=== PATIENT | female | born 1945 | race Caucasian/White ===

== ENCOUNTER 2016-04-23 13:53 | Inpatient (IN) | payer MEDICARE ==
[~2016-04-23] VITALS: Ht 165.1 cm; Wt 81.8 kg
[~2016-04-23 13:53] MED LIST: 'PARAFON FORTE500 M1 PO; AMOXICILLIN500 M2 PO; AMPICILLIN500 MG PO; ASPIRIN ADULT L81 M1 PO; ATORVASTATIN CA10 M1 PO; AUGMENTIN 875 M1 TAB PO; CLARITIN10 MG PO; CYCLOBENZAPRINE10 MG PO; DAYPRO600 M1 PO; FLEXERIL5 MG PO; HYDROCODONE BIT1 T11 PO; KEFLEX 500 MG E2 CAP PO; LISINOPRIL10 M1 PO; METFORMIN1000 MG PO; METFORMIN500 MG PO; NAPROSYN500 MG PO; OMEPRAZOLE40 MG PO; PERCOCET 325 MG1 TA2 PO; PLAVIX75 MG PO; ROBAXIN750 MG PO; SIMVASTATIN10 MG PO; TRAMADOL HCL50 MG PO; ZANTAC 7575 M1 PO; ZOCOR10 MG PO; ZYRTEC10 MG PO; Zofran4 MG PO
[2016-04-23 13:57] VITALS: BP 160/88
[2016-04-23] MEDS ORDERED: ASPIRIN ADULT L81 M1 PO (13:58)
[2016-04-23 14:30] LABS: HEMATOCRIT 46.1 % (37.0-47.0); HEMOGLOBIN 16.5 g/dl (12.0-16.0); MEAN CELL VOLUME 87.6 fl (81.0-99.0); MEAN CORPUSCULAR HGB 31.4 pg (27.0-31.0); MEAN CORPUSCULAR HGB CONC 35.8 g/dl (33.0-37.0); MEAN PLATELET VOLUME 10.3 fl (9.6-12.3); PLATELET COUNT AUTOMATED 175 10*3/uL (130-400); RED BLOOD COUNT 5.26 10*6/uL (4.10-5.10); WHITE BLOOD COUNT 17.4 10*3/uL (4.8-10.8)
[2016-04-23 14:49] LABS: ALBUMIN 3.9 gm/dl (3.1-4.5); BILIRUBIN, TOTAL 0.6 mg/dl (0.2-1.0); POTASSIUM 3.8 mmol/L (3.5-5.1)
[2016-04-23 14:55] LABS: ATYPICAL LYMPHS 2 % (0-0); MONOCYTE # 0.3 10*3/uL (0.1-1.0); NEUTROPHILS 92 % (47-73); PLATELET SUFFICIENCY NORMAL (NORMAL); TOTAL CELLS COUNTED 100 #CELLS
[2016-04-23 15:55] LABS: BILIRUBIN NEGATIVE (NEGATIVE); BLOOD 3+ (NEGATIVE); CLARITY CLOUDY (CLEAR); COLOR YELLOW (YELLOW); GLUCOSE 2+ (NEGATIVE); KETONE TRACE (NEGATIVE); LEUKO ESTERASE 2+ (NEGATIVE); NITRITE POSITIVE (NEGATIVE); PROTEIN 1+ (NEGATIVE); UROBILINOGEN 0.2 E.U./dl (0.2-1.0)
[2016-04-23 16:00] VITALS: BP 145/65
[2016-04-23 16:10] LABS: BACTERIA 1+; RBC 16-20 rbc/hpf (0-2); URINE REFLEX COMMENT YES (NO); WBC TNTC wbc/hpf (0-5)
[2016-04-23 19:20] VITALS: BP 159/51
[2016-04-23 20:30] VITALS: BP 145/65
[2016-04-24] VITALS: BP 145/61
[2016-04-24 00:52] LABS: TROPONIN I 0.046 ng/ml (<0.5)
[2016-04-24 06:37] LABS: BASO % 0.3 % (0.0-1.0); EOS % 0.3 % (1.0-4.0); IG # 0.1 10*3/uL (0.0-0.1); LYMPH # 1.5 10*3/uL (1.3-4.4); LYMPH % 11.7 % (27.0-41.0); MEAN CELL VOLUME 90.3 fl (81.0-99.0); MEAN CORPUSCULAR HGB 30.9 pg (27.0-31.0); MEAN CORPUSCULAR HGB CONC 34.3 g/dl (33.0-37.0); MEAN PLATELET VOLUME 10.8 fl (9.6-12.3); MONO # 1.1 10*3/uL (0.1-1.0); MONO % 8.7 % (3.0-9.0); NEUT # 9.8 10*3/uL (2.3-7.9); NEUT % 78.4 % (47.0-73.0); PLATELET COUNT AUTOMATED 126 10*3/uL (130-400); RED BLOOD COUNT 4.43 10*6/uL (4.10-5.10); RED CELL DISTRI WIDTH 12.2 % (0-14.5); WHITE BLOOD COUNT 12.5 10*3/uL (4.8-10.8)
[2016-04-24 06:38] LABS: HEMOGLOBIN 13.7 g/dl (12.0-16.0)
[2016-04-24 06:51] LABS: CKMB 0.8 ng/ml (0.5-3.6); TROPONIN I 0.042 ng/ml (<0.5)
[2016-04-24 06:53] LABS: ALKALINE PHOSPHATASE 78 U/L (45-117); BILIRUBIN, TOTAL 0.6 mg/dl (0.2-1.0); BUN 12 mg/dl (7-24); CARBON DIOXIDE 26 mmol/L (21-32); CHLORIDE 108 mmol/L (98-107); CHOLESTEROL 146 mg/dL (<200); EST GLOM FILT AFRICAN AMERICAN > 60 ml/min; FREE T4 1.55 ng/dl (0.76-1.46); GLUCOSE 156 mg/dL (65-99); HDL CHOLESTEROL 49 mg/dl (40-60); LDL CHOLESTEROL 76 mg/dL (9-159); MAGNESIUM 2.2 mg/dL (1.5-2.1); PHOSPHOROUS 2.3 mg/dL (2.5-4.9); POTASSIUM 3.7 mmol/L (3.5-5.1); SGOT/AST 10 IU/L (3-35); SGPT/ALT 16 U/L (12-78); SODIUM 144 mmol/L (136-145); THYROID STIM HORMONE (HS) 0.962 uIU/ml (0.358-4.75); TOTAL PROTEIN 6.7 gm/dL (6.4-8.2); TRIGLYCERIDES 107 mg/dl (<150); VLDL CHOLESTEROL 21 mg/dL (6-40)
[2016-04-24 06:59] LABS: HEMOGLOBIN A1c 7.3 % (4.8-5.6)
[2016-04-24 07:16] LABS: PROTHROMBIN TIME 10.4 SECONDS (9.0-12.4)
[2016-04-24 07:45] LABS: FOLIC ACID 6.99 ng/mL (>5.38); VITAMIN D, 25-HYDROXY 13.6 ng/mL (30-100)
[2016-04-24 08:00] VITALS: BP 145/60
[2016-04-24 11:47] VITALS: BP 155/63
[2016-04-24 12:11] LABS: CKMB 1.2 ng/ml (0.5-3.6); TROPONIN I 0.034 ng/ml (<0.5)
[2016-04-24 16:00] VITALS: BP 155/70
[2016-04-24] MEDS ORDERED: PRAVACHOL20 MG PO (17:35)
[2016-04-24] MEDS ORDERED: LISINOPRIL40 MG PO (17:35)
[2016-04-24 20:00] VITALS: BP 155/57
[2016-04-25] VITALS: BP 154/68
[2016-04-25 07:27] LABS: BASO % 0.4 % (0.0-1.0); EOS # 0.1 10*3/uL (0.0-0.4); EOS % 0.8 % (1.0-4.0); HEMATOCRIT 38.6 % (37.0-47.0); HEMOGLOBIN 13.5 g/dl (12.0-16.0); LYMPH # 1.1 10*3/uL (1.3-4.4); LYMPH % 13.2 % (27.0-41.0); MEAN CELL VOLUME 87.9 fl (81.0-99.0); MEAN CORPUSCULAR HGB 30.8 pg (27.0-31.0); MEAN PLATELET VOLUME 10.2 fl (9.6-12.3); MONO # 0.7 10*3/uL (0.1-1.0); MONO % 7.9 % (3.0-9.0); NEUT # 6.4 10*3/uL (2.3-7.9); NEUT % 77.3 % (47.0-73.0); PLATELET COUNT AUTOMATED 127 10*3/uL (130-400); RED BLOOD COUNT 4.39 10*6/uL (4.10-5.10); RED CELL DISTRI WIDTH 11.9 % (0-14.5); WHITE BLOOD COUNT 8.3 10*3/uL (4.8-10.8)
[2016-04-25 07:42] LABS: ALBUMIN 3.1 gm/dl (3.1-4.5); ALKALINE PHOSPHATASE 80 U/L (45-117); BILIRUBIN, TOTAL 0.5 mg/dl (0.2-1.0); BUN 13 mg/dl (7-24); CARBON DIOXIDE 28 mmol/L (21-32); CHLORIDE 107 mmol/L (98-107); EST GLOM FILT AFRICAN AMERICAN > 60 ml/min; GLUCOSE 140 mg/dL (65-99); POTASSIUM 3.5 mmol/L (3.5-5.1); SGOT/AST 16 IU/L (3-35); SGPT/ALT 24 U/L (12-78); SODIUM 142 mmol/L (136-145); TOTAL PROTEIN 6.9 gm/dL (6.4-8.2)
[2016-04-25 08:00] VITALS: BP 144/68
[2016-04-25 12:00] VITALS: BP 170/82
[2016-04-25 16:00] VITALS: BP 176/59
[2016-04-25 20:00] VITALS: BP 187/81
[2016-04-26] VITALS: BP 177/73
[2016-04-26 07:09] LABS: BASO % 0.6 % (0.0-1.0); EOS # 0.1 10*3/uL (0.0-0.4); HEMATOCRIT 35.6 % (37.0-47.0); HEMOGLOBIN 12.5 g/dl (12.0-16.0); LYMPH # 1.5 10*3/uL (1.3-4.4); LYMPH % 21.8 % (27.0-41.0); MEAN CELL VOLUME 86.6 fl (81.0-99.0); MEAN CORPUSCULAR HGB 30.4 pg (27.0-31.0); MEAN CORPUSCULAR HGB CONC 35.1 g/dl (33.0-37.0); MEAN PLATELET VOLUME 10.5 fl (9.6-12.3); MONO # 0.7 10*3/uL (0.1-1.0); MONO % 10.7 % (3.0-9.0); NEUT # 4.3 10*3/uL (2.3-7.9); NEUT % 64.6 % (47.0-73.0); PLATELET COUNT AUTOMATED 119 10*3/uL (130-400); RED BLOOD COUNT 4.11 10*6/uL (4.10-5.10); RED CELL DISTRI WIDTH 11.7 % (0-14.5); WHITE BLOOD COUNT 6.7 10*3/uL (4.8-10.8)
[2016-04-26 08:00] VITALS: BP 150/70
[2016-04-26] MEDS ORDERED: CIPRO500 MG PO (09:21)
[2016-04-26] MEDS ORDERED: D-1000 185 MG-11 TAB PO (09:21)
[2016-05-19] MEDS ORDERED: ACETAMINOPHEN-H1 TA2 PO (18:35)
[2016-05-19] MEDS ORDERED: FLONASE ALLERG9.9 ML NAS (19:28)
[2016-05-19] MEDS ORDERED: PREDNISONE10 MG PO (19:28)
[2016-05-19] MEDS ORDERED: ROBITUSSIN DM 105 ML PO (19:28)
[2016-05-19] MEDS ORDERED: TESSALON PERLE100 M1 PO (19:38)
== END 2016-04-26 10:52 | disposition home or self-care (01) | DRG 871 ==
LOC: ED 13:53 → 5E 18:21 → EDHOLD 18:21 → 5E 18:42
PROVIDERS: Family Medicine Adult Medicine; Internal Medicine; Nurse Practitioner Family
DX: A41.9 Sepsis, unspecified organism (principal); N17.0 Acute kidney failure with tubular necrosis; E44.0 Moderate protein-calorie malnutrition; E83.41 Hypermagnesemia; D69.6 Thrombocytopenia, unspecified; E83.39 Other disorders of phosphorus metabolism; N12 Tubulo-interstitial nephritis, not specified as acute or chronic; E78.5 Hyperlipidemia, unspecified; E11.9 Type 2 diabetes mellitus without complications; K21.9 Gastro-esophageal reflux disease without esophagitis; I10 Essential (primary) hypertension; I99.9 Unspecified disorder of circulatory system; L30.9 Dermatitis, unspecified; E66.3 Overweight; B96.20 Unspecified Escherichia coli [E. coli] as the cause of diseases classified elsewhere; Z90.710 Acquired absence of both cervix and uterus; Z98.890 Other specified postprocedural states; Z82.49 Family history of ischemic heart disease and other diseases of the circulatory system; Z88.6 Allergy status to analgesic agent; Z91.041 Radiographic dye allergy status; Z79.82 Long term (current) use of aspirin; Z79.84 Long term (current) use of oral hypoglycemic drugs; Z79.899 Other long term (current) drug therapy; Z68.30 Body mass index [BMI] 30.0-30.9, adult

== ENCOUNTER 2016-09-23 20:18 | Emergency (ER) | payer MEDICARE ==
[2016-09-23 20:18] VITALS: BP 179/90
[~2016-09-23 20:18] MED LIST changes: +ACETAMINOPHEN-H1 TA2 PO; +CIPRO500 MG PO; +D-1000 185 MG-11 TAB PO; +FLONASE ALLERG9.9 ML NAS; +LISINOPRIL40 MG PO; +PRAVACHOL20 MG PO; +PREDNISONE10 MG PO; +ROBITUSSIN DM 105 ML PO; +TESSALON PERLE100 M1 PO
[2016-09-23 21:29] LABS: BASO % 0.1 % (0.0-1.0); EOS # 0.2 10*3/uL (0.0-0.4); EOS % 2.3 % (1.0-4.0); HEMATOCRIT 42.3 % (37.0-47.0); HEMOGLOBIN 14.6 g/dl (12.0-16.0); LYMPH # 0.5 10*3/uL (1.3-4.4); LYMPH % 4.4 % (27.0-41.0); MEAN CELL VOLUME 88.5 fl (81.0-99.0); MEAN CORPUSCULAR HGB 30.5 pg (27.0-31.0); MEAN CORPUSCULAR HGB CONC 34.5 g/dl (33.0-37.0); MEAN PLATELET VOLUME 10.1 fl (9.6-12.3); MONO # 0.4 10*3/uL (0.1-1.0); MONO % 3.6 % (3.0-9.0); NEUT # 9.2 10*3/uL (2.3-7.9); NEUT % 89.3 % (47.0-73.0); PLATELET COUNT AUTOMATED 131 10*3/uL (130-400); RED BLOOD COUNT 4.78 10*6/uL (4.10-5.10); RED CELL DISTRI WIDTH 12.6 % (0-14.5); WHITE BLOOD COUNT 10.3 10*3/uL (4.8-10.8)
[2016-09-23 21:47] LABS: BUN 16 mg/dl (7-24); C-REACTIVE PROTEIN 2.84 MG/DL (0-0.3); CARBON DIOXIDE 24 mmol/L (21-32); CHLORIDE 106 mmol/L (98-107); EST GLOM FILT AFRICAN AMERICAN > 60 ml/min; GLUCOSE 163 mg/dL (65-99); MAGNESIUM 1.8 mg/dL (1.5-2.1); POTASSIUM 3.7 mmol/L (3.5-5.1); SODIUM 141 mmol/L (136-145); TROPONIN I 0.042 ng/ml (<0.045)
[2016-09-23 22:29] LABS: BILIRUBIN NEGATIVE (NEGATIVE); BLOOD TRACE-INTACT (NEGATIVE); CLARITY CLEAR (CLEAR); COLOR YELLOW (YELLOW); GLUCOSE NEGATIVE (NEGATIVE); KETONE NEGATIVE (NEGATIVE); LEUKO ESTERASE NEGATIVE (NEGATIVE); NITRITE NEGATIVE (NEGATIVE); PROTEIN NEGATIVE (NEGATIVE); SPECIFIC GRAVITY 1.025 (1.005-1.030); UROBILINOGEN 0.2 E.U./dl (0.2-1.0)
[2016-09-23 22:44] LABS: BACTERIA 2+; URINE REFLEX COMMENT YES (NO)
[2016-09-23] MEDS ORDERED: Zofran4 MG PO (22:50)
== END 2016-09-23 23:18 | disposition home or self-care (01) ==
LOC: ED 20:18
PROVIDERS: Student in an Organized Health Care Education/Training Program
DX: R11.2 Nausea with vomiting, unspecified (principal); R19.7 Diarrhea, unspecified; I10 Essential (primary) hypertension; K21.9 Gastro-esophageal reflux disease without esophagitis; Z90.49 Acquired absence of other specified parts of digestive tract; Z88.6 Allergy status to analgesic agent; Z91.041 Radiographic dye allergy status; Z79.899 Other long term (current) drug therapy; Z79.82 Long term (current) use of aspirin

== ENCOUNTER 2016-11-09 18:03 | Inpatient (IN) | payer MEDICARE ==
[~2016-11-09] VITALS: Ht 166.4 cm; Wt 83.6 kg
--- NOTE | ~2016-11-09 | CON ---
[place], [place] REPORT OF CONSULTATION NAME: BRANDEN LEON UNIT #: [id number] ROOM: 507 DOCTOR: MARY LOPEZ [facility] BIRTHDATE: [birth year] DOS: 11/10/2016 HISTORY OF PRESENT ILLNESS: The patient came in with history of right ear pain and headache and CT scan was unremarkable. Chest x-ray also is unremarkable. The patient has a history of paroxysmal atrial fibrillation, now in sinus rhythm, was in bradycardia, now the heart rate is stabilized around 70 and with optimal adjustment of the medications, and history of hyponatremia, hypoglycemia and hyperglycemia. No evidence of any acute cardiac decompensation at this time. Responding well to the current readjustment of the medications. PHYSICAL EXAMINATION: VITAL SIGNS: Blood pressure 150/72, heart rate is 80, respiratory rate is 20, and afebrile. GENERAL: Alert and responding well. SKIN: Warm. NECK: Supple. LUNGS: No rales. HEART: S1 and S2, regular. No gallops. ABDOMEN: Soft. Color is good. No cyanosis. RECTAL AND GENITAL: Unrelated. NEUROLOGICAL: No focal neurological deficits noted. LABORATORY DATA: Albumin is normal. Enzymes are unremarkable. Liver functions were good. GFR is normal. Hemoglobin is 15.1, WBC count 9.7, ____ 61.2. Electrolytes are normal. ASSESSMENT AND PLAN: History of cardiac dysrhythmia, now in sinus with periods of occasional ____. Rhythm appears to be stable. Hemodynamically stable. We will continue the therapy. We will follow the patient closely. VALENCIA HERNANDEZ MD CM:CONSTR:REPORT OF CONSULTATION 1712 11/12/16 0547 stephanie FLYNN DO
--- NOTE | ~2016-11-09 | EKG ---
[place], [place] ELECTROCARDIOGRAM REPORT NAME: BRANDEN LEON UNIT #: [id number] ROOM: 507 DOCTOR: SHAGUFTA SMITH MD BIRTHDATE: [birth year] DOS: 11/09/2016 TIME: 1902 hours. Sinus tachycardia 110 beats per minute with unifocal PVCs. Consider an old inferior wall myocardial infarction. No previous tracing is available for comparison. SHAGUFTA SMITH MD CM:EKGRPT:ELECTROCARDIOGRAM REPORT 33 12 SHAGUFTA SMITH MD
[2016-11-09 18:53] VITALS: BP 190/105
[2016-11-09 19:20] VITALS: BP 134/80
[2016-11-09 19:24] LABS: BASO % 0.2 % (0.0-1.0); EOS % 0.2 % (1.0-4.0); HEMATOCRIT 43.7 % (37.0-47.0); HEMOGLOBIN 15.1 g/dl (12.0-16.0); LYMPH # 1.1 10*3/uL (1.3-4.4); LYMPH % 11.1 % (27.0-41.0); MEAN CELL VOLUME 86.9 fl (81.0-99.0); MEAN CORPUSCULAR HGB CONC 34.6 g/dl (33.0-37.0); MEAN PLATELET VOLUME 10.4 fl (9.6-12.3); MONO # 0.7 10*3/uL (0.1-1.0); MONO % 6.8 % (3.0-9.0); NEUT # 7.9 10*3/uL (2.3-7.9); NEUT % 81.4 % (47.0-73.0); PLATELET COUNT AUTOMATED 137 10*3/uL (130-400); RED BLOOD COUNT 5.03 10*6/uL (4.10-5.10); RED CELL DISTRI WIDTH 12.6 % (0-14.5); WHITE BLOOD COUNT 9.7 10*3/uL (4.8-10.8)
[2016-11-09 19:34] LABS: PROTHROMBIN TIME 10.6 SECONDS (9.0-12.4)
[2016-11-09 19:40] LABS: ALBUMIN 3.9 gm/dl (3.1-4.5); ALKALINE PHOSPHATASE 106 U/L (45-117); BILIRUBIN, TOTAL 0.6 mg/dl (0.2-1.0); BUN 15 mg/dl (7-24); C-REACTIVE PROTEIN 2.16 MG/DL (0-0.3); CARBON DIOXIDE 23 mmol/L (21-32); CHLORIDE 103 mmol/L (98-107); CKMB 1.2 ng/ml (0.5-3.6); CPK 113 U/L (26-192); EST GLOM FILT AFRICAN AMERICAN > 60 ml/min; GLUCOSE 144 mg/dL (65-99); SGOT/AST 16 IU/L (3-35); SGPT/ALT 22 U/L (12-78); SODIUM 135 mmol/L (136-145); TOTAL PROTEIN 7.9 gm/dL (6.4-8.2); TROPONIN I 0.035 ng/ml (<0.045)
[2016-11-09 20:38] VITALS: BP 134/69
[2016-11-09 22:14] VITALS: BP 148/95
[2016-11-09 22:48] VITALS: BP 177/79
[2016-11-09 22:59] VITALS: BP 177/79
[2016-11-10] VITALS: BP 175/73
[2016-11-10 04:00] VITALS: BP 141/60
[2016-11-10 07:10] LABS: BASO % 0.4 % (0.0-1.0); EOS % 0.3 % (1.0-4.0); HEMATOCRIT 40.3 % (37.0-47.0); HEMOGLOBIN 13.9 g/dl (12.0-16.0); LYMPH # 0.9 10*3/uL (1.3-4.4); LYMPH % 11.6 % (27.0-41.0); MEAN CELL VOLUME 87.6 fl (81.0-99.0); MEAN CORPUSCULAR HGB 30.2 pg (27.0-31.0); MEAN CORPUSCULAR HGB CONC 34.5 g/dl (33.0-37.0); MEAN PLATELET VOLUME 10.7 fl (9.6-12.3); MONO # 0.6 10*3/uL (0.1-1.0); MONO % 8.2 % (3.0-9.0); NEUT # 6.1 10*3/uL (2.3-7.9); NEUT % 79.2 % (47.0-73.0); PLATELET COUNT AUTOMATED 115 10*3/uL (130-400); RED CELL DISTRI WIDTH 12.7 % (0-14.5); WHITE BLOOD COUNT 7.7 10*3/uL (4.8-10.8)
[2016-11-10 07:35] LABS: HEMOGLOBIN A1c 7.2 % (4.8-5.6)
[2016-11-10 07:47] LABS: MAGNESIUM 1.9 mg/dL (1.5-2.1); PHOSPHOROUS 3.2 mg/dL (2.5-4.9); POTASSIUM 3.5 mmol/L (3.5-5.1)
[2016-11-10 07:50] LABS: PROTHROMBIN TIME 10.7 SECONDS (9.0-12.4)
[2016-11-10 07:57] LABS: FREE T4 1.38 ng/dl (0.76-1.46); THYROID STIM HORMONE (HS) 1.42 uIU/ml (0.358-4.75)
[2016-11-10 08:00] VITALS: BP 127/46
[2016-11-10 08:14] LABS: VITAMIN D, 25-HYDROXY 15.9 ng/mL (30-100)
[2016-11-10 08:15] LABS: FOLIC ACID 11.46 ng/mL (>5.38)
[2016-11-10 12:00] VITALS: BP 159/60
[2016-11-10 16:00] VITALS: BP 153/62
[2016-11-10 20:00] VITALS: BP 156/59
[2016-11-11] VITALS: BP 130/55
[2016-11-11 08:00] VITALS: BP 157/60
[2016-11-11 12:00] VITALS: BP 92/48
[2016-11-11 14:30] VITALS: BP 106/62
[2016-11-11 16:49] VITALS: BP 117/57
[2016-11-11 20:00] VITALS: BP 157/59
[2016-11-12] VITALS: BP 158/62
[2016-11-12 08:00] VITALS: BP 112/82
[2016-11-12 12:00] VITALS: BP 122/63
[2016-11-12 16:00] VITALS: BP 155/65
[2016-11-12 20:00] VITALS: BP 159/73
[2016-11-13] VITALS: BP 148/50
[2016-11-13 08:00] VITALS: BP 150/60
[2016-11-13 12:00] VITALS: BP 174/70
[2016-11-13] MEDS ORDERED: CARVEDILOL6.25 MG PO (12:49)
== END 2016-11-13 16:23 | disposition home or self-care (01) | DRG 155 ==
LOC: ED 18:03 → 5E 22:12 → EDHOLD 22:12 → 5E 22:24
PROVIDERS: Nurse Practitioner Family; Student in an Organized Health Care Education/Training Program
DX: H92.01 Otalgia, right ear (principal); E87.1 Hypo-osmolality and hyponatremia; E11.65 Type 2 diabetes mellitus with hyperglycemia; I49.3 Ventricular premature depolarization; I08.1 Rheumatic disorders of both mitral and tricuspid valves; R51 Headache; E78.5 Hyperlipidemia, unspecified; K21.9 Gastro-esophageal reflux disease without esophagitis; Z87.891 Personal history of nicotine dependence; Z90.49 Acquired absence of other specified parts of digestive tract; Z90.710 Acquired absence of both cervix and uterus; Z98.1 Arthrodesis status; Z79.82 Long term (current) use of aspirin; Z79.84 Long term (current) use of oral hypoglycemic drugs; Z79.899 Other long term (current) drug therapy; Z88.8 Allergy status to other drugs, medicaments and biological substances; Z91.041 Radiographic dye allergy status; Z82.49 Family history of ischemic heart disease and other diseases of the circulatory system; G89.29 Other chronic pain; M54.9 Dorsalgia, unspecified

== ENCOUNTER 2016-11-16 18:24 | Inpatient (IN) | payer MEDICARE ==
[~2016-11-16] VITALS: Ht 165.1 cm; Wt 80.8 kg
--- NOTE | ~2016-11-16 | EKG ---
[place], [place] ELECTROCARDIOGRAM REPORT NAME: BRANDEN LEON UNIT #: [id number] ROOM: 426 DOCTOR: MARY LOPEZ [facility],[place] BIRTHDATE: [birth year] DOS: 11/16/2016 TIME: 1849 CONCLUSION: 1. Sinus rhythm. 2. Minor left axis nonspecific ST changes. VALENCIA HERNANDEZ MD CM:EKGRPT:ELECTROCARDIOGRAM REPORT 1622 1832 VALENCIA HERNANDEZ MD [facility]
[~2016-11-16 18:24] MED LIST changes: +CARVEDILOL6.25 MG PO
[2016-11-16 18:29] VITALS: BP 204/82
[2016-11-16 18:40] VITALS: BP 196/100
[2016-11-16 18:54] LABS: BASO % 0.2 % (0.0-1.0); EOS % 0.1 % (1.0-4.0); HEMATOCRIT 39.7 % (37.0-47.0); IG # 0.1 10*3/uL (0.0-0.1); LYMPH # 0.7 10*3/uL (1.3-4.4); LYMPH % 5.1 % (27.0-41.0); MEAN CELL VOLUME 85.9 fl (81.0-99.0); MEAN CORPUSCULAR HGB 30.3 pg (27.0-31.0); MEAN CORPUSCULAR HGB CONC 35.3 g/dl (33.0-37.0); MEAN PLATELET VOLUME 9.9 fl (9.6-12.3); MONO # 0.6 10*3/uL (0.1-1.0); MONO % 4.5 % (3.0-9.0); NEUT # 12.4 10*3/uL (2.3-7.9); NEUT % 89.6 % (47.0-73.0); PLATELET COUNT AUTOMATED 126 10*3/uL (130-400); RED BLOOD COUNT 4.62 10*6/uL (4.10-5.10); RED CELL DISTRI WIDTH 12.2 % (0-14.5); WHITE BLOOD COUNT 13.8 10*3/uL (4.8-10.8)
[2016-11-16 19:11] LABS: ALBUMIN 3.5 gm/dl (3.1-4.5); ALKALINE PHOSPHATASE 84 U/L (45-117); BILIRUBIN, TOTAL 0.8 mg/dl (0.2-1.0); BUN 9 mg/dl (7-24); CARBON DIOXIDE 25 mmol/L (21-32); CHLORIDE 101 mmol/L (98-107); EST GLOM FILT AFRICAN AMERICAN > 60 ml/min; GLUCOSE 168 mg/dL (65-99); MAGNESIUM 1.8 mg/dL (1.5-2.1); POTASSIUM 3.3 mmol/L (3.5-5.1); SGOT/AST 24 IU/L (3-35); SGPT/ALT 47 U/L (12-78); SODIUM 136 mmol/L (136-145); TOTAL PROTEIN 7.6 gm/dL (6.4-8.2)
[2016-11-16 19:12] LABS: TROPONIN I 0.023 ng/ml (<0.045)
[2016-11-16 19:24] LABS: PROTHROMBIN TIME 10.8 SECONDS (8.9-12.2)
[2016-11-16 19:51] VITALS: BP 138/74
[2016-11-16 19:55] LABS: BILIRUBIN NEGATIVE (NEGATIVE); BLOOD 1+ (NEGATIVE); CLARITY SL CLOUDY (CLEAR); COLOR YELLOW (YELLOW); GLUCOSE NEGATIVE (NEGATIVE); KETONE 1+ (NEGATIVE); LEUKO ESTERASE NEGATIVE (NEGATIVE); NITRITE NEGATIVE (NEGATIVE); PROTEIN 1+ (NEGATIVE); SPECIFIC GRAVITY 1.015 (1.005-1.030)
[2016-11-16 20:08] LABS: BACTERIA 2+; URINE REFLEX COMMENT YES (NO)
[2016-11-16 21:16] VITALS: BP 135/41
[2016-11-16 22:20] VITALS: BP 166/66
[2016-11-17] VITALS: BP 136/51
[2016-11-17 04:09] LABS: BASO % 0.3 % (0.0-1.0); IG # 0.1 10*3/uL (0.0-0.1); LYMPH # 0.8 10*3/uL (1.3-4.4); LYMPH % 6.7 % (27.0-41.0); MEAN CELL VOLUME 87.2 fl (81.0-99.0); MEAN CORPUSCULAR HGB 30.1 pg (27.0-31.0); MEAN CORPUSCULAR HGB CONC 34.5 g/dl (33.0-37.0); MEAN PLATELET VOLUME 9.5 fl (9.6-12.3); MONO # 0.7 10*3/uL (0.1-1.0); MONO % 5.8 % (3.0-9.0); NEUT # 10.2 10*3/uL (2.3-7.9); NEUT % 86.6 % (47.0-73.0); PLATELET COUNT AUTOMATED 102 10*3/uL (130-400); RED BLOOD COUNT 3.76 10*6/uL (4.10-5.10); RED CELL DISTRI WIDTH 12.4 % (0-14.5); WHITE BLOOD COUNT 11.8 10*3/uL (4.8-10.8)
[2016-11-17 04:10] LABS: HEMATOCRIT 32.8 % (37.0-47.0); HEMOGLOBIN 11.3 g/dl (12.0-16.0)
[2016-11-17 04:19] LABS: INTERNATIONAL NORM RATIO 1.1 (2.0-3.5); PROTHROMBIN TIME 11.8 SECONDS (9.0-12.4)
[2016-11-17 04:19] LABS: BUN 10 mg/dl (7-24); CARBON DIOXIDE 25 mmol/L (21-32); CHLORIDE 105 mmol/L (98-107); EST GLOM FILT AFRICAN AMERICAN > 60 ml/min; GLUCOSE 156 mg/dL (65-99); MAGNESIUM 1.6 mg/dL (1.5-2.1); POTASSIUM 2.9 mmol/L (3.5-5.1); SODIUM 139 mmol/L (136-145)
[2016-11-17 04:20] LABS: PHOSPHOROUS 2.8 mg/dL (2.5-4.9)
[2016-11-17 08:00] VITALS: BP 128/68
[2016-11-17 12:00] VITALS: BP 105/45
[2016-11-17 16:00] VITALS: BP 121/53
[2016-11-17 20:00] VITALS: BP 100/53
[2016-11-18] VITALS: BP 140/63
[2016-11-18 08:00] VITALS: BP 140/90
[2016-11-18 10:29] LABS: POTASSIUM 3.8 mmol/L (3.5-5.1)
[2016-11-18 10:48] LABS: MEAN CELL VOLUME 86.5 fl (81.0-99.0); MEAN CORPUSCULAR HGB 30.7 pg (27.0-31.0); MEAN CORPUSCULAR HGB CONC 35.5 g/dl (33.0-37.0); RED BLOOD COUNT 4.88 10*6/uL (4.10-5.10); WHITE BLOOD COUNT 14.7 10*3/uL (4.8-10.8)
[2016-11-18 10:49] LABS: HEMATOCRIT 42.2 % (37.0-47.0); PLATELET COUNT AUTOMATED 156 10*3/uL (130-400)
[2016-11-18 10:51] LABS: LYMPHOCYTE # 0.6 10*3/uL (1.3-4.4); MONOCYTE # 0.7 10*3/uL (0.1-1.0); NEUTROPHIL # 13.4 10*3/uL (2.3-7.9); NEUTROPHILS 91 % (47-73); PLATELET SUFFICIENCY NORMAL (NORMAL); TOTAL CELLS COUNTED 100 #CELLS
[2016-11-18 12:00] VITALS: BP 153/66
[2016-11-18 16:00] VITALS: BP 153/65
[2016-11-18 20:00] VITALS: BP 159/66
[2016-11-19] VITALS: BP 162/85
[2016-11-19 05:57] LABS: ALBUMIN 2.5 gm/dl (3.1-4.5); BILIRUBIN, TOTAL 0.5 mg/dl (0.2-1.0); POTASSIUM 2.9 mmol/L (3.5-5.1)
[2016-11-19 05:58] LABS: TOTAL PROTEIN 5.8 gm/dL (6.4-8.2)
[2016-11-19 06:19] LABS: BASO % 0.2 % (0.0-1.0); EOS % 0.2 % (1.0-4.0); IG # 0.1 10*3/uL (0.0-0.1); LYMPH # 1.2 10*3/uL (1.3-4.4); LYMPH % 9.8 % (27.0-41.0); MEAN CELL VOLUME 86.7 fl (81.0-99.0); MEAN CORPUSCULAR HGB 29.9 pg (27.0-31.0); MEAN CORPUSCULAR HGB CONC 34.5 g/dl (33.0-37.0); MEAN PLATELET VOLUME 10.8 fl (9.6-12.3); MONO # 0.7 10*3/uL (0.1-1.0); MONO % 5.6 % (3.0-9.0); NEUT # 10.1 10*3/uL (2.3-7.9); NEUT % 83.5 % (47.0-73.0); PLATELET COUNT AUTOMATED 120 10*3/uL (130-400); RED BLOOD COUNT 3.98 10*6/uL (4.10-5.10); RED CELL DISTRI WIDTH 13.1 % (0-14.5); WHITE BLOOD COUNT 12.1 10*3/uL (4.8-10.8)
[2016-11-19 06:37] LABS: HEMATOCRIT 34.5 % (37.0-47.0); HEMOGLOBIN 11.9 g/dl (12.0-16.0)
[2016-11-19 07:29] LABS: MAGNESIUM 2.1 mg/dL (1.5-2.1); PHOSPHOROUS 1.9 mg/dL (2.5-4.9)
[2016-11-19 08:00] VITALS: BP 162/92
[2016-11-19 12:00] VITALS: BP 170/79
[2016-11-19 16:00] VITALS: BP 143/54
[2016-11-19 20:00] VITALS: BP 158/78
[2016-11-20] VITALS: BP 163/72
[2016-11-20 05:44] LABS: CHLORIDE 109 mmol/L (98-107); GLUCOSE 107 mg/dL (65-99); POTASSIUM 2.8 mmol/L (3.5-5.1); SODIUM 143 mmol/L (136-145)
[2016-11-20 05:48] LABS: BUN 9 mg/dl (7-24); CARBON DIOXIDE 27 mmol/L (21-32); EST GLOM FILT AFRICAN AMERICAN > 60 ml/min; MAGNESIUM 1.9 mg/dL (1.5-2.1); PHOSPHOROUS 2.2 mg/dL (2.5-4.9)
[2016-11-20 05:58] LABS: BASO % 0.4 % (0.0-1.0); EOS # 0.1 10*3/uL (0.0-0.4); HEMATOCRIT 31.8 % (37.0-47.0); IG # 0.1 10*3/uL (0.0-0.1); LYMPH # 1.5 10*3/uL (1.3-4.4); MEAN CELL VOLUME 87.1 fl (81.0-99.0); MEAN CORPUSCULAR HGB 30.1 pg (27.0-31.0); MEAN CORPUSCULAR HGB CONC 34.6 g/dl (33.0-37.0); MEAN PLATELET VOLUME 10.8 fl (9.6-12.3); MONO # 0.6 10*3/uL (0.1-1.0); MONO % 6.9 % (3.0-9.0); NEUT # 6.1 10*3/uL (2.3-7.9); NEUT % 73.1 % (47.0-73.0); PLATELET COUNT AUTOMATED 121 10*3/uL (130-400); RED BLOOD COUNT 3.65 10*6/uL (4.10-5.10); RED CELL DISTRI WIDTH 13.2 % (0-14.5); WHITE BLOOD COUNT 8.3 10*3/uL (4.8-10.8)
[2016-11-20 08:00] VITALS: BP 180/66
[2016-11-20] MEDS ORDERED: IMODIUM A-D2 M2 PO (10:56)
[2016-11-20] MEDS ORDERED: K-TAB10 MEQ PO (10:58)
[2016-11-20 12:00] VITALS: BP 146/70
== END 2016-11-20 15:34 | disposition home or self-care (01) | DRG 871 ==
LOC: ED 18:24 → 4E 20:20 → EDHOLD 20:20 → 4E 20:20
PROVIDERS: Family Medicine; Internal Medicine; Internal Medicine Gastroenterology; Internal Medicine Hospice and Palliative Medicine; Nurse Practitioner Family
DX: A41.9 Sepsis, unspecified organism (principal); N17.0 Acute kidney failure with tubular necrosis; E43 Unspecified severe protein-calorie malnutrition; K52.9 Noninfective gastroenteritis and colitis, unspecified; E78.5 Hyperlipidemia, unspecified; I16.0 Hypertensive urgency; E87.6 Hypokalemia; E11.65 Type 2 diabetes mellitus with hyperglycemia; E83.39 Other disorders of phosphorus metabolism; K21.9 Gastro-esophageal reflux disease without esophagitis; Z87.891 Personal history of nicotine dependence; Z68.29 Body mass index [BMI] 29.0-29.9, adult; Z90.49 Acquired absence of other specified parts of digestive tract; Z90.710 Acquired absence of both cervix and uterus; Z98.1 Arthrodesis status; Z88.5 Allergy status to narcotic agent; Z88.8 Allergy status to other drugs, medicaments and biological substances; Z79.82 Long term (current) use of aspirin; Z79.84 Long term (current) use of oral hypoglycemic drugs; Z79.899 Other long term (current) drug therapy; Z91.041 Radiographic dye allergy status; Z82.49 Family history of ischemic heart disease and other diseases of the circulatory system; Z80.8 Family history of malignant neoplasm of other organs or systems; Z82.3 Family history of stroke; Z53.29 Procedure and treatment not carried out because of patient's decision for other reasons

== ENCOUNTER → 2016-11-29 | Outpatient (CLI) | payer MEDICARE ==
[~2016-11-29] MED LIST changes: +IMODIUM A-D2 M2 PO; +K-TAB10 MEQ PO
--- NOTE | ~2016-11-29 | HM ---
[place], [place] HOLTER MONITOR REPORT NAME: [id number] UNIT #: [id number] ROOM: DOCTOR: JUVENAL STONE MD BIRTHDATE: [birth year] DOS: 11/30/2016 24-HOUR HOLTER MONITOR Study was recorded from November 29 through , analyzed on and interpreted and dictated on the . REFERRED BY: Dr. Igor Bo for an evaluation of palpitations. FINDINGS: The patient was monitored for 24 hours utilizing a Holter device. Basic rhythm was sinus with an average heart rate of 73. Heart rate varied from 53-117 beats per minute in sinus rhythm. Occasional premature ventricular contractions were noted. There were no episodes of ventricular tachycardia. Most of the PVCs occurred during sleep hours, suggesting that this may be related to sleep apnea. Occasional premature atrial contractions were seen. Three brief atrial runs were recorded, the longest of which was 5 beats in duration. No prolonged pauses were seen. IMPRESSION: Sinus rhythm with occasional premature ventricular contractions and occasional premature atrial contractions. Most of the premature ventricular contractions occurred during sleep hours, suggesting the possibility of sleep apnea syndrome. No ventricular tachycardia or supraventricular tachycardia was recorded. JUVENAL STONE MD CM:HOLTER:HOLTER MONITOR REPORT 1850 JUVENAL STONE MD
== END | disposition home or self-care (01) ==
LOC: CARD 08:48
DX: R00.2 Palpitations (principal)

== ENCOUNTER 2017-02-04 18:18 | Emergency (ER) | payer MEDICARE ==
[~2017-02-04] VITALS: Ht 165.1 cm; Wt 78.0 kg
[2017-02-04 19:00] LABS: BASO % 0.5 % (0.0-1.0); EOS # 0.2 10*3/uL (0.0-0.4); EOS % 2.9 % (1.0-4.0); HEMATOCRIT 39.3 % (37.0-47.0); HEMOGLOBIN 13.5 g/dl (12.0-16.0); LYMPH # 2.2 10*3/uL (1.3-4.4); MEAN CELL VOLUME 88.5 fl (81.0-99.0); MEAN CORPUSCULAR HGB 30.4 pg (27.0-31.0); MEAN CORPUSCULAR HGB CONC 34.4 g/dl (33.0-37.0); MEAN PLATELET VOLUME 10.1 fl (9.6-12.3); MONO # 0.4 10*3/uL (0.1-1.0); MONO % 5.3 % (3.0-9.0); NEUT # 5.2 10*3/uL (2.3-7.9); NEUT % 64.1 % (47.0-73.0); PLATELET COUNT AUTOMATED 162 10*3/uL (130-400); RED BLOOD COUNT 4.44 10*6/uL (4.10-5.10); RED CELL DISTRI WIDTH 13.1 % (0-14.5); WHITE BLOOD COUNT 8.1 10*3/uL (4.8-10.8)
[2017-02-04 19:16] LABS: ALBUMIN 3.7 gm/dl (3.1-4.5); ALKALINE PHOSPHATASE 93 U/L (45-117); BUN 17 mg/dl (7-24); CHLORIDE 103 mmol/L (98-107); CREATININE 1.06 mg/dL (0.55-1.02); POTASSIUM 3.8 mmol/L (3.5-5.1); SGOT/AST 12 IU/L (3-35); SGPT/ALT 22 U/L (12-78); SODIUM 138 mmol/L (136-145); TOTAL PROTEIN 7.6 gm/dL (6.4-8.2)
[2017-02-04 19:21] LABS: TROPONIN I 0.051 ng/ml (<0.045)
[2017-02-04 20:01] VITALS: BP 150/80
== END 2017-02-04 20:08 | disposition home or self-care (01) ==
LOC: ED 18:18
PROVIDERS: Physician Assistant
DX: I10 Essential (primary) hypertension (principal); R79.89 Other specified abnormal findings of blood chemistry; N28.9 Disorder of kidney and ureter, unspecified; Z91.041 Radiographic dye allergy status; Z88.5 Allergy status to narcotic agent; Z79.82 Long term (current) use of aspirin; Z79.899 Other long term (current) drug therapy; Z90.49 Acquired absence of other specified parts of digestive tract; Z90.710 Acquired absence of both cervix and uterus; Z87.891 Personal history of nicotine dependence

== ENCOUNTER 2017-04-13 14:20 | Inpatient (IN) | payer MEDICARE ==
[~2017-04-13] VITALS: Ht 165.1 cm; Wt 80.8 kg
[2017-04-13] VITALS (11 sets, daily range): BP systolic 127–220; BP diastolic 61–101
--- NOTE | ~2017-04-13 | PR ---
[place], [place] PROGRESS NOTE NAME: BRANDEN LEON UNIT #: [id number] ROOM: 412 DOCTOR: JUVENAL STONE MD BIRTHDATE: [birth year] DOS: 04/15/2017 SUBJECTIVE: The patient was seen in the Cardiology Department just prior to her stress test today. She is a 71-year-old woman without any previous history of heart disease, but with multiple risk factors including diabetes and hyperlipidemia. She presented with a 7-day history of chest pain. It began as a sharp pain, but then changed to a dull ache. She localizes the pain to her right upper chest. She states that it resolved last evening and has not recurred today. Given her multiple risk factors, it was felt that she should be evaluated for coronary disease. PHYSICAL EXAMINATION: VITAL SIGNS: Today, her pulse is 72 and regular, blood pressure is 142/70. She weighs 80.8 kg and has a body mass index of 29.6. NECK: Supple. She has no jugular distention. Carotids are full and I heard no bruits. LUNGS: Respirations were unlabored. Her chest was clear to auscultation and percussion. HEART: Had a regular rhythm with a fourth heart sound, but no third heart sound. ABDOMEN: Soft and normoactive. EXTREMITIES: Showed no edema. Pulses were palpable in the feet. LABORATORY DATA: The patient did have a CT angiogram of the chest, which showed no evidence for pulmonary embolism or infiltrates. Troponin levels were mildly elevated, but in an atypical pattern. On admission, her troponin was 0.053. Subsequent troponin levels were, 0.053, 0.051 and 0.059. No typical rise and fall pattern was demonstrated. IMPRESSION: 1. Atypical chest pain. 2. Essential hypertension. 3. Type 2 diabetes mellitus. 4. Hyperlipidemia. PLAN: We will proceed with a pharmacologic stress test and echocardiogram. Further recommendations will depend on the results of these examinations. In the meantime, risk factor modification will be continued. We thank the hospitalist physicians for asking our advice regarding the patient's care. [place], [place] PROGRESS NOTE NAME: BRANDEN LEON UNIT #: [id number] ROOM: 412 DOCTOR: JUVENAL STONE MDTE: 45 JUVENAL STONE MD CM:PNTRANS [id number] JUVENAL STONE MD 04/15/17 1535 interface
[~2017-04-13 14:20] MED LIST changes: -LISINOPRIL40 MG PO; +ZESTRIL20 MG PO
[2017-04-13 14:53] LABS: BASO # 0.1 10*3/uL (0.0-0.1); BASO % 0.5 % (0.0-1.0); EOS # 0.2 10*3/uL (0.0-0.4); EOS % 2.2 % (1.0-4.0); HEMATOCRIT 44.5 % (37.0-47.0); LYMPH # 1.6 10*3/uL (1.3-4.4); LYMPH % 15.1 % (27.0-41.0); MEAN CELL VOLUME 88.8 fl (81.0-99.0); MEAN CORPUSCULAR HGB 29.9 pg (27.0-31.0); MEAN CORPUSCULAR HGB CONC 33.7 g/dl (33.0-37.0); MEAN PLATELET VOLUME 10.7 fl (9.6-12.3); MONO # 0.6 10*3/uL (0.1-1.0); MONO % 5.7 % (3.0-9.0); NEUT # 8.2 10*3/uL (2.3-7.9); NEUT % 76.2 % (47.0-73.0); PLATELET COUNT AUTOMATED 175 10*3/uL (130-400); RED BLOOD COUNT 5.01 10*6/uL (4.10-5.10); RED CELL DISTRI WIDTH 12.9 % (0-14.5); WHITE BLOOD COUNT 10.7 10*3/uL (4.8-10.8)
[2017-04-13 15:01] LABS: ACT PARTIAL THROMBO TIME 24.8 SECONDS (20.8-31.5)
[2017-04-13 15:10] LABS: ALBUMIN 3.8 gm/dl (3.1-4.5); CREATININE 1.14 mg/dL (0.55-1.02); TOTAL PROTEIN 8.3 gm/dL (6.4-8.2)
[2017-04-13 15:13] LABS: TROPONIN I 0.053 ng/ml (<0.045)
[2017-04-13 16:40] LABS: BILIRUBIN NEGATIVE (NEGATIVE); BLOOD TRACE-INTACT (NEGATIVE); CLARITY CLEAR (CLEAR); COLOR YELLOW (YELLOW); GLUCOSE NEGATIVE (NEGATIVE); KETONE NEGATIVE (NEGATIVE); LEUKO ESTERASE NEGATIVE (NEGATIVE); NITRITE NEGATIVE (NEGATIVE); PH 5.5 (5.0-9.0); SPECIFIC GRAVITY 1.015 (1.005-1.030); UROBILINOGEN 0.2 E.U./dl (0.2-1.0)
[2017-04-13 16:50] LABS: BACTERIA 2+; WBC 0-2 wbc/hpf (0-5)
[2017-04-13] MEDS ORDERED: ZYRTEC10 MG PO (17:26)
[2017-04-13] MEDS ORDERED: TESSALON PERLE100 M1 PO (17:27)
[2017-04-14] VITALS: BP 174/74
[2017-04-14 07:22] LABS: BASO % 0.5 % (0.0-1.0); EOS # 0.3 10*3/uL (0.0-0.4); EOS % 4.1 % (1.0-4.0); HEMATOCRIT 39.6 % (37.0-47.0); HEMOGLOBIN 13.5 g/dl (12.0-16.0); LYMPH # 1.8 10*3/uL (1.3-4.4); LYMPH % 23.2 % (27.0-41.0); MEAN CELL VOLUME 89.4 fl (81.0-99.0); MEAN CORPUSCULAR HGB 30.5 pg (27.0-31.0); MEAN CORPUSCULAR HGB CONC 34.1 g/dl (33.0-37.0); MEAN PLATELET VOLUME 10.8 fl (9.6-12.3); MONO # 0.5 10*3/uL (0.1-1.0); MONO % 7.1 % (3.0-9.0); NEUT % 64.8 % (47.0-73.0); PLATELET COUNT AUTOMATED 148 10*3/uL (130-400); RED BLOOD COUNT 4.43 10*6/uL (4.10-5.10); RED CELL DISTRI WIDTH 12.7 % (0-14.5); WHITE BLOOD COUNT 7.6 10*3/uL (4.8-10.8)
[2017-04-14 07:29] LABS: ALBUMIN 3.2 gm/dl (3.1-4.5); ALKALINE PHOSPHATASE 81 U/L (45-117); BUN 17 mg/dl (7-24); CHLORIDE 106 mmol/L (98-107); CHOLESTEROL 163 mg/dL (<200); CREATININE 0.93 mg/dL (0.55-1.02); FREE T4 1.49 ng/dl (0.76-1.46); HDL CHOLESTEROL 37 mg/dl (40-60); LDL CHOLESTEROL 95 mg/dL (9-159); POTASSIUM 4.1 mmol/L (3.5-5.1); SGOT/AST 14 IU/L (3-35); SGPT/ALT 20 U/L (12-78); SODIUM 141 mmol/L (136-145); TOTAL PROTEIN 6.8 gm/dL (6.4-8.2); TRIGLYCERIDES 155 mg/dl (<150); VLDL CHOLESTEROL 31 mg/dL (6-40)
[2017-04-14 08:00] VITALS: BP 142/74
[2017-04-14 12:00] VITALS: BP 170/68
[2017-04-14 16:00] VITALS: BP 179/75
[2017-04-14 20:00] VITALS: BP 152/70
[2017-04-15] VITALS: BP 153/81
[2017-04-15 07:52] LABS: BASO % 0.1 % (0.0-1.0); HEMATOCRIT 40.1 % (37.0-47.0); HEMOGLOBIN 14.1 g/dl (12.0-16.0); LYMPH # 0.9 10*3/uL (1.3-4.4); MEAN CELL VOLUME 86.2 fl (81.0-99.0); MEAN CORPUSCULAR HGB 30.3 pg (27.0-31.0); MEAN CORPUSCULAR HGB CONC 35.2 g/dl (33.0-37.0); MEAN PLATELET VOLUME 11.4 fl (9.6-12.3); MONO # 0.1 10*3/uL (0.1-1.0); MONO % 0.6 % (3.0-9.0); NEUT # 10.3 10*3/uL (2.3-7.9); NEUT % 90.6 % (47.0-73.0); PLATELET COUNT AUTOMATED 178 10*3/uL (130-400); RED BLOOD COUNT 4.65 10*6/uL (4.10-5.10); RED CELL DISTRI WIDTH 12.2 % (0-14.5); WHITE BLOOD COUNT 11.3 10*3/uL (4.8-10.8)
[2017-04-15 08:00] VITALS: BP 160/80
[2017-04-15 08:07] LABS: CREATININE 1.25 mg/dL (0.55-1.02); POTASSIUM 3.9 mmol/L (3.5-5.1)
[2017-04-15 12:00] VITALS: BP 172/83
[2017-04-15 16:00] VITALS: BP 142/64
[2017-04-15 20:00] VITALS: BP 128/66
[2017-04-16] VITALS: BP 116/54
[2017-04-16 06:34] LABS: BASO % 0.1 % (0.0-1.0); HEMATOCRIT 37.2 % (37.0-47.0); HEMOGLOBIN 13.1 g/dl (12.0-16.0); LYMPH # 2.1 10*3/uL (1.3-4.4); LYMPH % 14.5 % (27.0-41.0); MEAN CELL VOLUME 87.5 fl (81.0-99.0); MEAN CORPUSCULAR HGB 30.8 pg (27.0-31.0); MEAN CORPUSCULAR HGB CONC 35.2 g/dl (33.0-37.0); MEAN PLATELET VOLUME 11.2 fl (9.6-12.3); MONO # 0.6 10*3/uL (0.1-1.0); MONO % 4.1 % (3.0-9.0); NEUT # 11.6 10*3/uL (2.3-7.9); NEUT % 80.6 % (47.0-73.0); PLATELET COUNT AUTOMATED 154 10*3/uL (130-400); RED BLOOD COUNT 4.25 10*6/uL (4.10-5.10); RED CELL DISTRI WIDTH 12.7 % (0-14.5); WHITE BLOOD COUNT 14.4 10*3/uL (4.8-10.8)
[2017-04-16 06:53] LABS: CREATININE 1.39 mg/dL (0.55-1.02); POTASSIUM 3.8 mmol/L (3.5-5.1)
[2017-04-16] MEDS ORDERED: METOPROLOL SUCC50 M1 PO (07:03)
[2017-04-16] MEDS ORDERED: VITAMIN D50000 UNIT PO (07:04)
[2017-04-16 12:00] VITALS: BP 119/55
[2017-04-16] MEDS ORDERED: PRAVACHOL20 MG PO (12:41)
[2017-04-16] MEDS ORDERED: DUONEB 3 MG/3 ML3 M1 NEB (13:25)
[2017-04-16] MEDS ORDERED: NEBULIZER DEVI (13:25)
[2017-04-16] MEDS ORDERED: PREDNISONE10 MG PO (13:25)
[2017-04-16] MEDS ORDERED: AVPAK AZITHROM250 M1 PO (13:25)
[2017-04-16] MEDS ORDERED: HYDR25T PO (13:25)
[2017-04-16] MEDS ORDERED: PRAVACHOL40 MG PO (13:26)
== END 2017-04-16 14:48 | disposition home or self-care (01) | DRG 880 ==
LOC: ED 14:20 → EDHOLD 16:17 → 4E 16:17
PROVIDERS: Family Medicine Adult Medicine; Internal Medicine; Physician Assistant
PROC: 3E073KZ Introduction of Other Diagnostic Substance into Coronary Artery, Percutaneous Approach (ICD-10-PCS; principal; 2017-04-15)
PROC: 4A02XM4 Measurement of Cardiac Total Activity, External Approach (ICD-10-PCS; principal; 2017-04-15)
DX: F41.9 Anxiety disorder, unspecified (principal); J18.9 Pneumonia, unspecified organism; E11.22 Type 2 diabetes mellitus with diabetic chronic kidney disease; E11.65 Type 2 diabetes mellitus with hyperglycemia; N18.3 Chronic kidney disease, stage 3 (moderate); K21.9 Gastro-esophageal reflux disease without esophagitis; I16.0 Hypertensive urgency; E78.5 Hyperlipidemia, unspecified; I12.9 Hypertensive chronic kidney disease with stage 1 through stage 4 chronic kidney disease, or unspecified chronic kidney disease; E55.9 Vitamin D deficiency, unspecified; J40 Bronchitis, not specified as acute or chronic; Z90.49 Acquired absence of other specified parts of digestive tract; Z90.710 Acquired absence of both cervix and uterus; Z98.1 Arthrodesis status; Z87.891 Personal history of nicotine dependence; Z79.82 Long term (current) use of aspirin; Z79.84 Long term (current) use of oral hypoglycemic drugs; Z79.899 Other long term (current) drug therapy; Z88.5 Allergy status to narcotic agent; Z88.8 Allergy status to other drugs, medicaments and biological substances; Z91.041 Radiographic dye allergy status; Z82.49 Family history of ischemic heart disease and other diseases of the circulatory system; Z80.49 Family history of malignant neoplasm of other genital organs; Z82.3 Family history of stroke

== ENCOUNTER 2017-06-05 15:55 | Inpatient (IN) | payer MEDICARE ==
[~2017-06-05] VITALS: Ht 165.1 cm; Wt 78.0 kg
[~2017-06-05 15:55] MED LIST changes: +AVPAK AZITHROM250 M1 PO; +DUONEB 3 MG/3 ML3 M1 NEB; +HYDR25T PO; +METOPROLOL SUCC50 M1 PO; +NEBULIZER DEVI; +PRAVACHOL40 MG PO; +VITAMIN D50000 UNIT PO
[2017-06-05 15:58] VITALS: BP 195/92
[2017-06-05 16:59] LABS: BILIRUBIN 1+ (NEGATIVE); BLOOD 1+ (NEGATIVE); CLARITY SL CLOUDY (CLEAR); COLOR YELLOW (YELLOW); GLUCOSE NEGATIVE (NEGATIVE); KETONE NEGATIVE (NEGATIVE); LEUKO ESTERASE 1+ (NEGATIVE); NITRITE NEGATIVE (NEGATIVE); SPECIFIC GRAVITY >= 1.030 (1.005-1.030); UROBILINOGEN 0.2 E.U./dl (0.2-1.0)
[2017-06-05 17:05] LABS: BACTERIA 2+; EPITHELIAL CELLS 31-40
[2017-06-05 17:05] LABS: BASO % 0.3 % (0.0-1.0); EOS # 0.2 10*3/uL (0.0-0.4); EOS % 1.2 % (1.0-4.0); HEMATOCRIT 44.5 % (37.0-47.0); HEMOGLOBIN 15.1 g/dl (12.0-16.0); LYMPH # 1.5 10*3/uL (1.3-4.4); LYMPH % 12.7 % (27.0-41.0); MEAN CELL VOLUME 88.3 fl (81.0-99.0); MEAN CORPUSCULAR HGB CONC 33.9 g/dl (33.0-37.0); MEAN PLATELET VOLUME 10.7 fl (9.6-12.3); MONO # 0.9 10*3/uL (0.1-1.0); MONO % 7.4 % (3.0-9.0); NEUT # 9.5 10*3/uL (2.3-7.9); PLATELET COUNT AUTOMATED 176 10*3/uL (130-400); RED BLOOD COUNT 5.04 10*6/uL (4.10-5.10); RED CELL DISTRI WIDTH 12.8 % (0-14.5); WHITE BLOOD COUNT 12.2 10*3/uL (4.8-10.8)
[2017-06-05 17:06] LABS: WBC 21-30 wbc/hpf (0-5); YEAST TRACE
[2017-06-05 17:23] LABS: ACT PARTIAL THROMBO TIME 23.9 SECONDS (20.8-31.5); ALBUMIN 3.8 gm/dl (3.1-4.5); CREATININE 1.11 mg/dL (0.55-1.02); INTERNATIONAL NORM RATIO 0.9 (2.0-3.5); POTASSIUM 3.9 mmol/L (3.5-5.1); TOTAL PROTEIN 8.4 gm/dL (6.4-8.2); TROPONIN I 0.039 ng/ml (<0.045)
[2017-06-05 17:30] VITALS: BP 131/77
[2017-06-05 18:52] VITALS: BP 157/73
[2017-06-05 19:26] VITALS: BP 192/92
[2017-06-05 20:00] VITALS: BP 140/57
[2017-06-05 21:00] VITALS: BP 192/92
[2017-06-06] VITALS: BP 170/65
[2017-06-06 06:40] LABS: BASO % 0.3 % (0.0-1.0); EOS # 0.1 10*3/uL (0.0-0.4); EOS % 0.9 % (1.0-4.0); HEMOGLOBIN 14.1 g/dl (12.0-16.0); LYMPH # 1.5 10*3/uL (1.3-4.4); LYMPH % 12.3 % (27.0-41.0); MEAN CORPUSCULAR HGB 29.9 pg (27.0-31.0); MEAN CORPUSCULAR HGB CONC 33.6 g/dl (33.0-37.0); MEAN PLATELET VOLUME 10.6 fl (9.6-12.3); MONO # 0.9 10*3/uL (0.1-1.0); MONO % 7.2 % (3.0-9.0); NEUT # 9.3 10*3/uL (2.3-7.9); NEUT % 78.9 % (47.0-73.0); PLATELET COUNT AUTOMATED 171 10*3/uL (130-400); RED BLOOD COUNT 4.72 10*6/uL (4.10-5.10); RED CELL DISTRI WIDTH 12.8 % (0-14.5); WHITE BLOOD COUNT 11.8 10*3/uL (4.8-10.8)
[2017-06-06 07:10] LABS: ALBUMIN 3.4 gm/dl (3.1-4.5); ALKALINE PHOSPHATASE 89 U/L (45-117); BUN 13 mg/dl (7-24); CHLORIDE 103 mmol/L (98-107); CREATININE 0.93 mg/dL (0.55-1.02); FREE T4 1.44 ng/dl (0.76-1.46); SGOT/AST 12 IU/L (3-35); SGPT/ALT 21 U/L (12-78); SODIUM 138 mmol/L (136-145); TOTAL PROTEIN 7.5 gm/dL (6.4-8.2)
[2017-06-06 08:00] VITALS: BP 174/84
[2017-06-06 12:00] VITALS: BP 156/64
[2017-06-06 16:00] VITALS: BP 146/98
[2017-06-06 20:12] VITALS: BP 170/72
[2017-06-07] VITALS: BP 153/60
[2017-06-07 06:19] LABS: BASO % 0.4 % (0.0-1.0); EOS # 0.1 10*3/uL (0.0-0.4); HEMATOCRIT 41.1 % (37.0-47.0); HEMOGLOBIN 14.2 g/dl (12.0-16.0); LYMPH # 1.6 10*3/uL (1.3-4.4); LYMPH % 15.1 % (27.0-41.0); MEAN CELL VOLUME 87.1 fl (81.0-99.0); MEAN CORPUSCULAR HGB 30.1 pg (27.0-31.0); MEAN CORPUSCULAR HGB CONC 34.5 g/dl (33.0-37.0); MEAN PLATELET VOLUME 10.4 fl (9.6-12.3); MONO # 0.8 10*3/uL (0.1-1.0); MONO % 7.4 % (3.0-9.0); NEUT # 8.3 10*3/uL (2.3-7.9); NEUT % 75.7 % (47.0-73.0); PLATELET COUNT AUTOMATED 159 10*3/uL (130-400); RED BLOOD COUNT 4.72 10*6/uL (4.10-5.10); RED CELL DISTRI WIDTH 12.4 % (0-14.5); WHITE BLOOD COUNT 10.9 10*3/uL (4.8-10.8)
[2017-06-07 08:39] VITALS: BP 155/75
[2017-06-07 12:09] VITALS: BP 138/73
[2017-06-07 16:15] VITALS: BP 134/63
[2017-06-07 20:00] VITALS: BP 172/80
[2017-06-08] VITALS: BP 140/63
[2017-06-08 06:10] LABS: ALBUMIN 3.2 gm/dl (3.1-4.5); POTASSIUM 3.8 mmol/L (3.5-5.1)
[2017-06-08 06:13] LABS: BASO % 0.3 % (0.0-1.0); EOS # 0.2 10*3/uL (0.0-0.4); EOS % 2.3 % (1.0-4.0); HEMATOCRIT 39.9 % (37.0-47.0); HEMOGLOBIN 13.7 g/dl (12.0-16.0); LYMPH # 1.8 10*3/uL (1.3-4.4); LYMPH % 19.8 % (27.0-41.0); MEAN CELL VOLUME 88.5 fl (81.0-99.0); MEAN CORPUSCULAR HGB 30.4 pg (27.0-31.0); MEAN CORPUSCULAR HGB CONC 34.3 g/dl (33.0-37.0); MEAN PLATELET VOLUME 10.5 fl (9.6-12.3); MONO % 10.7 % (3.0-9.0); NEUT # 6.2 10*3/uL (2.3-7.9); NEUT % 66.6 % (47.0-73.0); PLATELET COUNT AUTOMATED 177 10*3/uL (130-400); RED BLOOD COUNT 4.51 10*6/uL (4.10-5.10); RED CELL DISTRI WIDTH 12.6 % (0-14.5); WHITE BLOOD COUNT 9.3 10*3/uL (4.8-10.8)
[2017-06-08 06:14] LABS: CREATININE 1.61 mg/dL (0.55-1.02); TOTAL PROTEIN 7.4 gm/dL (6.4-8.2)
[2017-06-08 08:28] VITALS: BP 134/57
[2017-06-08 12:00] VITALS: BP 126/74
[2017-06-08 16:00] VITALS: BP 125/63
[2017-06-08 20:00] VITALS: BP 138/54
[2017-06-09 06:01] LABS: BASO % 0.5 % (0.0-1.0); EOS # 0.3 10*3/uL (0.0-0.4); EOS % 4.1 % (1.0-4.0); HEMATOCRIT 37.4 % (37.0-47.0); HEMOGLOBIN 12.9 g/dl (12.0-16.0); LYMPH # 1.9 10*3/uL (1.3-4.4); LYMPH % 31.3 % (27.0-41.0); MEAN CELL VOLUME 89.3 fl (81.0-99.0); MEAN CORPUSCULAR HGB 30.8 pg (27.0-31.0); MEAN CORPUSCULAR HGB CONC 34.5 g/dl (33.0-37.0); MEAN PLATELET VOLUME 10.4 fl (9.6-12.3); MONO # 0.5 10*3/uL (0.1-1.0); MONO % 8.7 % (3.0-9.0); NEUT # 3.4 10*3/uL (2.3-7.9); NEUT % 55.1 % (47.0-73.0); PLATELET COUNT AUTOMATED 159 10*3/uL (130-400); RED BLOOD COUNT 4.19 10*6/uL (4.10-5.10); RED CELL DISTRI WIDTH 12.5 % (0-14.5); WHITE BLOOD COUNT 6.1 10*3/uL (4.8-10.8)
[2017-06-09 06:37] LABS: CREATININE 1.2 mg/dL (0.55-1.02); TOTAL PROTEIN 6.7 gm/dL (6.4-8.2)
[2017-06-09 08:00] VITALS: BP 110/51
[2017-06-09 12:00] VITALS: BP 152/66
[2017-06-09] MEDS ORDERED: PHENERGAN25 M3 PO (12:50)
[2017-06-09] MEDS ORDERED: DOXYCYCLINE100 M3 PO (12:50)
== END 2017-06-09 14:30 | disposition home or self-care (01) | DRG 689 ==
LOC: ED 15:55 → EDHOLD 18:20 → 5E 18:20
PROVIDERS: Emergency Medicine; Family Medicine Adult Medicine; Internal Medicine Hospice and Palliative Medicine
DX: N39.0 Urinary tract infection, site not specified (principal); N17.0 Acute kidney failure with tubular necrosis; E11.22 Type 2 diabetes mellitus with diabetic chronic kidney disease; E11.65 Type 2 diabetes mellitus with hyperglycemia; N18.3 Chronic kidney disease, stage 3 (moderate); E86.0 Dehydration; E66.3 Overweight; E78.5 Hyperlipidemia, unspecified; K21.9 Gastro-esophageal reflux disease without esophagitis; I99.9 Unspecified disorder of circulatory system; D72.810 Lymphocytopenia; I12.9 Hypertensive chronic kidney disease with stage 1 through stage 4 chronic kidney disease, or unspecified chronic kidney disease; J34.89 Other specified disorders of nose and nasal sinuses; E55.9 Vitamin D deficiency, unspecified; Z79.899 Other long term (current) drug therapy; Z68.28 Body mass index [BMI] 28.0-28.9, adult; Z90.49 Acquired absence of other specified parts of digestive tract; Z90.710 Acquired absence of both cervix and uterus; Z87.891 Personal history of nicotine dependence; Z82.49 Family history of ischemic heart disease and other diseases of the circulatory system; Z80.59 Family history of malignant neoplasm of other urinary tract organ; Z82.3 Family history of stroke; Z88.6 Allergy status to analgesic agent; Z91.041 Radiographic dye allergy status; Z79.82 Long term (current) use of aspirin

== ENCOUNTER 2017-07-03 19:05 | Emergency (ER) | payer MEDICARE ==
[~2017-07-03] VITALS: Ht 167.6 cm; Wt 77.1 kg
[~2017-07-03 19:05] MED LIST changes: +DOXYCYCLINE100 M3 PO; +PHENERGAN25 M3 PO
[2017-07-03 19:16] VITALS: BP 150/69
[2017-07-03] MEDS ORDERED: SEPTDS PO (19:49)
[2017-07-03] MEDS ORDERED: NAPROSYN500 MG PO (19:49)
== END 2017-07-03 20:06 | disposition home or self-care (01) ==
LOC: ED 19:05
DX: L02.01 Cutaneous abscess of face (principal); Z87.891 Personal history of nicotine dependence; Z90.49 Acquired absence of other specified parts of digestive tract; Z90.710 Acquired absence of both cervix and uterus; Z98.890 Other specified postprocedural states; Z79.899 Other long term (current) drug therapy; Z79.82 Long term (current) use of aspirin; Z91.041 Radiographic dye allergy status; Z88.5 Allergy status to narcotic agent

== ENCOUNTER 2017-07-07 20:48 | Emergency (ER) | payer MEDICARE ==
[~2017-07-07] VITALS: Wt 78.0 kg
[~2017-07-07 20:48] MED LIST changes: +SEPTDS PO
[2017-07-07 20:51] VITALS: BP 176/64
[2017-07-07 21:43] LABS: BASO # 0.1 10*3/uL (0.0-0.1); BASO % 0.5 % (0.0-1.0); EOS # 0.2 10*3/uL (0.0-0.4); EOS % 1.9 % (1.0-4.0); HEMATOCRIT 38.3 % (37.0-47.0); HEMOGLOBIN 13.1 g/dl (12.0-16.0); LYMPH # 1.4 10*3/uL (1.3-4.4); LYMPH % 13.4 % (27.0-41.0); MEAN CELL VOLUME 89.3 fl (81.0-99.0); MEAN CORPUSCULAR HGB 30.5 pg (27.0-31.0); MEAN CORPUSCULAR HGB CONC 34.2 g/dl (33.0-37.0); MEAN PLATELET VOLUME 10.3 fl (9.6-12.3); MONO # 0.7 10*3/uL (0.1-1.0); MONO % 6.6 % (3.0-9.0); NEUT % 77.1 % (47.0-73.0); PLATELET COUNT AUTOMATED 168 10*3/uL (130-400); RED BLOOD COUNT 4.29 10*6/uL (4.10-5.10); RED CELL DISTRI WIDTH 12.9 % (0-14.5); WHITE BLOOD COUNT 10.4 10*3/uL (4.8-10.8)
[2017-07-07 22:04] LABS: ALBUMIN 3.5 gm/dl (3.1-4.5); CREATININE 1.62 mg/dL (0.55-1.02)
[2017-07-07] MEDS ORDERED: CLINDAMYCIN HC300 MG PO (22:28)
[2017-07-08] MEDS ORDERED: CHLOROTHIAZIDE PO (18:19)
[2017-07-08] MEDS ORDERED: ONDANSETRON HYDR4 MG PO (18:23)
[2017-07-08] MEDS ORDERED: AMLODIPINE BESYL5 MG PO (18:23)
[2017-07-08] MEDS ORDERED: DIALYVITE V5000 UNIT PO (18:24)
[2017-07-08] MEDS ORDERED: HYDROCODONE-AC1 EAC1 PO (18:24)
[2017-07-08] MEDS ORDERED: LISINOPRIL20 MG PO (18:24)
[2017-07-08] MEDS ORDERED: NEURONTIN300 MG PO (18:25)
[2017-07-08] MEDS ORDERED: PRAVACHOL20 MG PO (18:25)
== END 2017-07-07 22:33 | disposition home or self-care (01) ==
LOC: ED 20:48
PROVIDERS: Physician Assistant
DX: L02.01 Cutaneous abscess of face (principal); Z90.49 Acquired absence of other specified parts of digestive tract; Z90.710 Acquired absence of both cervix and uterus; Z98.890 Other specified postprocedural states; Z87.891 Personal history of nicotine dependence; Z79.899 Other long term (current) drug therapy; Z79.82 Long term (current) use of aspirin; Z91.041 Radiographic dye allergy status; Z88.5 Allergy status to narcotic agent

== ENCOUNTER 2017-07-08 17:59 | Inpatient (IN) | payer MEDICARE ==
[~2017-07-08] VITALS: Ht 167.6 cm; Wt 81.3 kg
[~2017-07-08 17:59] MED LIST changes: +CLINDAMYCIN HC300 MG PO
[2017-07-08 18:15] VITALS: BP 150/55
[2017-07-08] MEDS ORDERED: CHLOROTHIAZIDE PO (18:19)
[2017-07-08] MEDS ORDERED: ONDANSETRON HYDR4 MG PO (18:23)
[2017-07-08] MEDS ORDERED: AMLODIPINE BESYL5 MG PO (18:23)
[2017-07-08] MEDS ORDERED: LISINOPRIL20 MG PO (18:24)
[2017-07-08] MEDS ORDERED: HYDROCODONE-AC1 EAC1 PO (18:24)
[2017-07-08] MEDS ORDERED: DIALYVITE V5000 UNIT PO (18:24)
[2017-07-08] MEDS ORDERED: PRAVACHOL20 MG PO (18:25)
[2017-07-08] MEDS ORDERED: NEURONTIN300 MG PO (18:25)
[2017-07-08 18:37] LABS: BASO % 0.5 % (0.0-1.0); EOS # 0.3 10*3/uL (0.0-0.4); EOS % 4.1 % (1.0-4.0); HEMATOCRIT 38.8 % (37.0-47.0); LYMPH # 1.4 10*3/uL (1.3-4.4); LYMPH % 17.4 % (27.0-41.0); MEAN CELL VOLUME 89.6 fl (81.0-99.0); MEAN CORPUSCULAR HGB CONC 33.5 g/dl (33.0-37.0); MEAN PLATELET VOLUME 10.1 fl (9.6-12.3); MONO # 0.6 10*3/uL (0.1-1.0); MONO % 7.4 % (3.0-9.0); NEUT # 5.7 10*3/uL (2.3-7.9); NEUT % 70.4 % (47.0-73.0); PLATELET COUNT AUTOMATED 172 10*3/uL (130-400); RED BLOOD COUNT 4.33 10*6/uL (4.10-5.10); RED CELL DISTRI WIDTH 12.7 % (0-14.5); WHITE BLOOD COUNT 8.1 10*3/uL (4.8-10.8)
[2017-07-08 18:53] LABS: ALBUMIN 3.5 gm/dl (3.1-4.5); CREATININE 1.6 mg/dL (0.55-1.02); POTASSIUM 3.8 mmol/L (3.5-5.1); TOTAL PROTEIN 8.1 gm/dL (6.4-8.2); TROPONIN I 0.015 ng/ml (<0.045)
[2017-07-08 20:00] VITALS: BP 152/56
[2017-07-09] VITALS: BP 149/70
[2017-07-09 06:01] LABS: BASO % 0.6 % (0.0-1.0); EOS # 0.4 10*3/uL (0.0-0.4); EOS % 5.8 % (1.0-4.0); HEMATOCRIT 37.2 % (37.0-47.0); HEMOGLOBIN 12.4 g/dl (12.0-16.0); LYMPH # 1.8 10*3/uL (1.3-4.4); LYMPH % 27.8 % (27.0-41.0); MEAN CELL VOLUME 90.1 fl (81.0-99.0); MEAN CORPUSCULAR HGB CONC 33.3 g/dl (33.0-37.0); MEAN PLATELET VOLUME 10.4 fl (9.6-12.3); MONO # 0.5 10*3/uL (0.1-1.0); MONO % 8.2 % (3.0-9.0); NEUT # 3.8 10*3/uL (2.3-7.9); NEUT % 57.3 % (47.0-73.0); PLATELET COUNT AUTOMATED 180 10*3/uL (130-400); RED BLOOD COUNT 4.13 10*6/uL (4.10-5.10); RED CELL DISTRI WIDTH 12.5 % (0-14.5); WHITE BLOOD COUNT 6.6 10*3/uL (4.8-10.8)
[2017-07-09 06:18] LABS: CREATININE 1.16 mg/dL (0.55-1.02); PHOSPHOROUS 2.8 mg/dL (2.5-4.9); TOTAL PROTEIN 7.1 gm/dL (6.4-8.2)
[2017-07-09 06:24] LABS: THYROID STIM HORMONE (HS) 1.85 uIU/ml (0.358-4.75)
[2017-07-09 06:27] LABS: INTERNATIONAL NORM RATIO 0.9 (2.0-3.5)
[2017-07-09 08:00] VITALS: BP 152/61
[2017-07-09 12:00] VITALS: BP 166/67
[2017-07-09 16:00] VITALS: BP 162/83
[2017-07-09 20:00] VITALS: BP 141/73
[2017-07-10] VITALS (9 sets, daily range): BP systolic 140–181; BP diastolic 55–94
[2017-07-11] VITALS: BP 152/62
[2017-07-11 06:06] LABS: BASO % 0.6 % (0.0-1.0); EOS # 0.3 10*3/uL (0.0-0.4); EOS % 4.9 % (1.0-4.0); HEMOGLOBIN 12.8 g/dl (12.0-16.0); LYMPH # 2.2 10*3/uL (1.3-4.4); LYMPH % 34.6 % (27.0-41.0); MEAN CORPUSCULAR HGB CONC 33.7 g/dl (33.0-37.0); MEAN PLATELET VOLUME 9.9 fl (9.6-12.3); MONO # 0.5 10*3/uL (0.1-1.0); MONO % 7.4 % (3.0-9.0); NEUT # 3.3 10*3/uL (2.3-7.9); PLATELET COUNT AUTOMATED 204 10*3/uL (130-400); RED BLOOD COUNT 4.27 10*6/uL (4.10-5.10); RED CELL DISTRI WIDTH 12.3 % (0-14.5); WHITE BLOOD COUNT 6.3 10*3/uL (4.8-10.8)
[2017-07-11 06:26] LABS: BUN 21 mg/dl (7-24); CHLORIDE 107 mmol/L (98-107); CREATININE 1.08 mg/dL (0.55-1.02); POTASSIUM 4.1 mmol/L (3.5-5.1); SODIUM 140 mmol/L (136-145)
[2017-07-11 08:00] VITALS: BP 147/64
[2017-07-11 12:00] VITALS: BP 154/67
[2017-07-11] MEDS ORDERED: CLINDAMYCIN HC300 MG PO (15:33)
[2017-07-11 16:00] VITALS: BP 165/71
== END 2017-07-11 17:50 | disposition home or self-care (01) | DRG 602 ==
LOC: 5E 17:59
PROVIDERS: Family Medicine
PROC: 0HB1XZZ Excision of Face Skin, External Approach (ICD-10-PCS; principal; 2017-07-10)
DX: L03.211 Cellulitis of face (principal); N17.0 Acute kidney failure with tubular necrosis; L02.01 Cutaneous abscess of face; E87.5 Hyperkalemia; N18.3 Chronic kidney disease, stage 3 (moderate); I99.9 Unspecified disorder of circulatory system; K21.9 Gastro-esophageal reflux disease without esophagitis; E78.5 Hyperlipidemia, unspecified; I12.9 Hypertensive chronic kidney disease with stage 1 through stage 4 chronic kidney disease, or unspecified chronic kidney disease; E11.22 Type 2 diabetes mellitus with diabetic chronic kidney disease; E66.3 Overweight; G89.29 Other chronic pain; M54.9 Dorsalgia, unspecified; E55.9 Vitamin D deficiency, unspecified; Z78.9 Other specified health status; Z90.49 Acquired absence of other specified parts of digestive tract; Z90.710 Acquired absence of both cervix and uterus; Z87.891 Personal history of nicotine dependence; Z82.49 Family history of ischemic heart disease and other diseases of the circulatory system; Z80.59 Family history of malignant neoplasm of other urinary tract organ; Z82.3 Family history of stroke; Z88.6 Allergy status to analgesic agent; Z88.8 Allergy status to other drugs, medicaments and biological substances; Z91.041 Radiographic dye allergy status; Z79.899 Other long term (current) drug therapy; Z68.28 Body mass index [BMI] 28.0-28.9, adult

== ENCOUNTER → 2017-07-18 | Outpatient (CLI) | payer MEDICARE ==
[~2017-07-18] MED LIST changes: +AMLODIPINE BESYL5 MG PO; +CHLOROTHIAZIDE PO; +DIALYVITE V5000 UNIT PO; +HYDROCODONE-AC1 EAC1 PO; +LISINOPRIL20 MG PO; +NEURONTIN300 MG PO; +ONDANSETRON HYDR4 MG PO
== END | disposition home or self-care (01) ==
LOC: WOUNDCARE 01:41
DX: S01.80XA Unspecified open wound of other part of head, initial encounter (principal); L02.01 Cutaneous abscess of face; Z87.891 Personal history of nicotine dependence; X58.XXXA Exposure to other specified factors, initial encounter; Y93.89 Activity, other specified; Y92.89 Other specified places as the place of occurrence of the external cause; Y99.8 Other external cause status

== ENCOUNTER 2018-03-29 13:49 | Emergency (ER) | payer MEDICARE ==
[2018-03-29 13:52] VITALS: BP 194/76
[2018-03-29] MEDS ORDERED: Motrin,Rufen800 MG PO (15:08)
[2018-03-29] MEDS ORDERED: ZOFRAN4 MG PO (15:12)
== END 2018-03-29 15:30 | disposition home or self-care (01) ==
LOC: ED 13:49
DX: S42.202A Unspecified fracture of upper end of left humerus, initial encounter for closed fracture (principal); E11.22 Type 2 diabetes mellitus with diabetic chronic kidney disease; I12.9 Hypertensive chronic kidney disease with stage 1 through stage 4 chronic kidney disease, or unspecified chronic kidney disease; N18.3 Chronic kidney disease, stage 3 (moderate); G89.29 Other chronic pain; E78.5 Hyperlipidemia, unspecified; K21.9 Gastro-esophageal reflux disease without esophagitis; Z91.041 Radiographic dye allergy status; Z88.5 Allergy status to narcotic agent; Z79.899 Other long term (current) drug therapy; Z90.49 Acquired absence of other specified parts of digestive tract; Z90.710 Acquired absence of both cervix and uterus; Z87.891 Personal history of nicotine dependence; W18.09XA Striking against other object with subsequent fall, initial encounter; Y93.F2 Activity, caregiving, lifting; Y92.89 Other specified places as the place of occurrence of the external cause; Y99.8 Other external cause status

== ENCOUNTER 2018-04-03 | Inpatient (IN) | payer MEDICARE ==
[2018-04-03] VITALS (9 sets, daily range): BP systolic 152–243; BP diastolic 72–132
[~2018-04-03] MED LIST changes: +Motrin,Rufen800 MG PO; +ZOFRAN4 MG PO
--- NOTE | ~2018-04-03 | EKG ---
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
[2018-04-03 12:08] LABS: BASO % 0.4 % (0.0-1.0); EOS # 0.3 10*3/uL (0.0-0.4); EOS % 4.2 % (1.0-4.0); HEMOGLOBIN 13.3 g/dl (12.0-16.0); LYMPH # 1.3 10*3/uL (1.3-4.4); LYMPH % 16.3 % (27.0-41.0); MEAN CORPUSCULAR HGB 30.4 pg (27.0-31.0); MEAN CORPUSCULAR HGB CONC 34.1 g/dl (33.0-37.0); MEAN PLATELET VOLUME 10.3 fl (9.6-12.3); MONO # 0.4 10*3/uL (0.1-1.0); MONO % 5.4 % (3.0-9.0); NEUT % 73.3 % (47.0-73.0); PLATELET COUNT AUTOMATED 154 10*3/uL (130-400); RED BLOOD COUNT 4.38 10*6/uL (4.10-5.10); RED CELL DISTRI WIDTH 12.4 % (0-14.5); WHITE BLOOD COUNT 8.2 10*3/uL (4.8-10.8)
[2018-04-03 12:17] LABS: ACT PARTIAL THROMBO TIME 23.9 SECONDS (20.8-31.5); INTERNATIONAL NORM RATIO 0.9 (2.0-3.5)
[2018-04-03 12:24] LABS: ALBUMIN 3.6 gm/dl (3.1-4.5); CREATININE 1.1 mg/dL (0.55-1.02); POTASSIUM 3.9 mmol/L (3.5-5.1); TOTAL PROTEIN 7.7 gm/dL (6.4-8.2)
--- NOTE | 2018-04-03 12:37 | NUR ---
LAB CALLED CRITICAL TROPONIN 0.069, DR. CHEATHAM NOTIFIED
[2018-04-03 12:38] LABS: TROPONIN I 0.069 ng/ml (<0.045)
--- NOTE | 2018-04-03 13:49 | NUR ---
PT APPEARS TO BE ALSEEP
--- NOTE | 2018-04-03 15:00 | NUR ---
A 72, admitted to , under the services of ADITI Cohn DO with a diagnosis of HYPERTENSIVE EMERGENCY, INTRACTABLE PAIN. Chief complaint is PAIN. Patient arrived via bed from ER. Monitor applied. Initial assessment completed. Vital signs taken and recorded. ADITI COHN DO notified of admission to the unit. Orders received. See assessment for past medical history, medications and allergies. Patient and/or family oriented to unit. [facility] ICCU visitation policy reviewed. Clothing/patient valuable form completed. EMILIANA GARCIA
[2018-04-04] VITALS: BP 181/72
[2018-04-04 07:02] LABS: BASO % 0.4 % (0.0-1.0); EOS # 0.3 10*3/uL (0.0-0.4); EOS % 4.4 % (1.0-4.0); HEMATOCRIT 34.6 % (37.0-47.0); HEMOGLOBIN 11.9 g/dl (12.0-16.0); LYMPH # 1.7 10*3/uL (1.3-4.4); MEAN CELL VOLUME 88.7 fl (81.0-99.0); MEAN CORPUSCULAR HGB 30.5 pg (27.0-31.0); MEAN CORPUSCULAR HGB CONC 34.4 g/dl (33.0-37.0); MEAN PLATELET VOLUME 10.6 fl (9.6-12.3); MONO # 0.5 10*3/uL (0.1-1.0); MONO % 7.1 % (3.0-9.0); NEUT # 4.5 10*3/uL (2.3-7.9); NEUT % 63.8 % (47.0-73.0); PLATELET COUNT AUTOMATED 141 10*3/uL (130-400); RED CELL DISTRI WIDTH 12.8 % (0-14.5); WHITE BLOOD COUNT 7.1 10*3/uL (4.8-10.8)
[2018-04-04 07:20] LABS: ALBUMIN 3.1 gm/dl (3.1-4.5); BUN 16 mg/dl (7-24); CHLORIDE 109 mmol/L (98-107); CHOLESTEROL 167 mg/dL (<200); CREATININE 0.88 mg/dL (0.55-1.02); POTASSIUM 3.9 mmol/L (3.5-5.1); SGOT/AST 10 IU/L (3-35); SGPT/ALT 19 U/L (12-78); SODIUM 142 mmol/L (136-145)
[2018-04-04 07:26] LABS: ALKALINE PHOSPHATASE 83 U/L (45-117); FREE T4 1.24 ng/dl (0.76-1.46); HDL CHOLESTEROL 34 mg/dl (40-60); LDL CHOLESTEROL 94 mg/dL (9-159); TOTAL PROTEIN 6.6 gm/dL (6.4-8.2); TRIGLYCERIDES 196 mg/dl (<150); VLDL CHOLESTEROL 39 mg/dL (6-40)
--- NOTE | 2018-04-04 07:29 | NUR ---
PHYSICAL THERAPY Nursing screen received. PT orders also received. Thank you. Kassidy Dale,PT
--- NOTE | 2018-04-04 07:50 | NUR ---
PT MEDICATED WITH NORCO AT THIS TIME PER PRN ORDER FOR COMPLAINTS OF LEFT SHOULDER PAIN AT FRACTURE. WILL MONITOR.
[2018-04-04 08:00] VITALS: BP 212/76
[2018-04-04 08:01] LABS: VITAMIN D, 25-HYDROXY 15.6 ng/mL (30-100)
--- NOTE | 2018-04-04 09:00 | NUR ---
PER PATIENT, PRN MEDICATION HAS BEEN EFFECTIVE. NO FURTHER NEEDS AT THIS TIME.
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
[2018-04-04 12:00] VITALS: BP 170/62
--- NOTE | 2018-04-04 13:32 | NUR ---
PHYSICAL THERAPY PAtient reports she has no PT skills/needs. Will d/c PT as patient requests. Reports she is 100 % (I) all functional mobility. Thank you for this referral. Kassidy Dale,PT
[2018-04-04 16:00] VITALS: BP 171/75
--- NOTE | 2018-04-04 18:47 | NUR ---
PT MEDICATED WITH NORCO AT THIS TIME PER PRN ORDER FOR COMPLAINTS OF PAIN IN LEFT SHOULDER 12/16. WILL MONITOR FOR EFFECTIVENESS.
[2018-04-04 20:00] VITALS: BP 186/72
[2018-04-05] VITALS (7 sets, daily range): BP systolic 132–199; BP diastolic 60–78
--- NOTE | 2018-04-05 08:11 | NUR ---
PT MEDICATED WITH PO NORCO AT THIS TIME FOR COMPLAINTS OF LEFT SHOULDER PAIN 11/15. WILL MONITOR FOR EFFECTIVENESS.
--- NOTE | 2018-04-05 09:30 | NUR ---
PRN PAIN MEDICATION EFFECTIVE, NO FURTHER COMPLAINTS AT THIS TIME.
--- NOTE | 2018-04-05 12:15 | NUR ---
BP 174/78 AT THIS TIME; MEDICATED WITH IV HYDRALAZINE PER PRN ORDER. WILL MONITOR.
--- NOTE | 2018-04-05 12:46 | NUR ---
148/65 AT THIS TIME, PRN BP MEDICATION EFFECTIVE.
--- NOTE | 2018-04-05 22:14 | NUR ---
PRN NORCO GIVEN FOR PT COMPLAINTS OF 8/10 SHOULDER PAIN. CALL LIGHT WITHIN REACH, WILL MONITOR
--- NOTE | 2018-04-05 23:30 | NUR ---
PRN MEDICATION APPEARS EFFECTIVE, PT SLEEPING
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
[2018-04-06] VITALS: BP 151/58
--- NOTE | 2018-04-06 05:25 | NUR ---
PRN NORCO GIVEN FOR PT COMPLAINTS OF 10/10 SHOULDER PAIN. CALL LIGHT WITHIN REACH, WILL MONITOR
[2018-04-06] MEDS ORDERED: VITAMIN D32000 UNI1 PO (08:29)
[2018-04-06] MEDS ORDERED: CARVEDILOL6.25 MG PO (08:29)
[2018-04-06] MEDS ORDERED: LISINOPRIL20 MG PO (08:29)
[2018-04-06] MEDS ORDERED: AMLODIPINE BESYL5 MG PO (08:29)
[2018-04-06 12:00] VITALS: BP 144/63
--- NOTE | 2018-04-06 12:03 | NUR ---
PT AMBULATED OFF THE FLOOR AT THIS TIME. FOLLOW UP CARE DISCUSSED. PRESCRIPTIONS GIVEN TO PATIENT.
== END 2018-04-06 12:03 | disposition home or self-care (01) | DRG 305 ==
PROVIDERS: Emergency Medicine; Registered Nurse; ADMIT Internal Medicine
DX: I16.1 Hypertensive emergency (principal); N18.3 Chronic kidney disease, stage 3 (moderate); G89.29 Other chronic pain; M54.9 Dorsalgia, unspecified; E11.22 Type 2 diabetes mellitus with diabetic chronic kidney disease; I12.9 Hypertensive chronic kidney disease with stage 1 through stage 4 chronic kidney disease, or unspecified chronic kidney disease; E66.3 Overweight; E78.5 Hyperlipidemia, unspecified; K21.9 Gastro-esophageal reflux disease without esophagitis; X58.XXXS Exposure to other specified factors, sequela; E55.9 Vitamin D deficiency, unspecified; S42.202S Unspecified fracture of upper end of left humerus, sequela; Z90.49 Acquired absence of other specified parts of digestive tract; Z90.710 Acquired absence of both cervix and uterus; Z87.891 Personal history of nicotine dependence; Z91.041 Radiographic dye allergy status; Z88.5 Allergy status to narcotic agent; Z91.09 Other allergy status, other than to drugs and biological substances; Z82.49 Family history of ischemic heart disease and other diseases of the circulatory system; Z82.3 Family history of stroke; Z68.29 Body mass index [BMI] 29.0-29.9, adult; Z79.84 Long term (current) use of oral hypoglycemic drugs

== ENCOUNTER → 2018-04-11 | Outpatient (CLI) | payer MEDICARE ==
[~2018-04-11] MED LIST changes: +VITAMIN D32000 UNI1 PO
== END | disposition home or self-care (01) ==
LOC: ORTHO 01:37
DX: S42.295D Other nondisplaced fracture of upper end of left humerus, subsequent encounter for fracture with routine healing (principal); X58.XXXD Exposure to other specified factors, subsequent encounter

== ENCOUNTER → 2018-04-29 | Outpatient (CLI) | payer MEDICARE | END | disposition home or self-care (01) | LOC: ORTHO 00:54 | DX: S42.295D Other nondisplaced fracture of upper end of left humerus, subsequent encounter for fracture with routine healing (principal); W00.0XXD Fall on same level due to ice and snow, subsequent encounter; X58.XXXD Exposure to other specified factors, subsequent encounter ==

== ENCOUNTER 2018-05-14 17:44 | Emergency (ER) | payer MEDICARE ==
[~2018-05-14] VITALS: Ht 165.1 cm; Wt 83.0 kg
--- NOTE | ~2018-05-14 | EKG ---
[place], [place] ELECTROCARDIOGRAM REPORT NAME: BRANDEN LEON UNIT #: [id number] ROOM: DOCTOR: EPIPHANY DRAFT REPORT BIRTHDATE: [birth year] [facility] Test Date: 2018-05-14 Test Time: 18:43:34 Pat Name: BRANDEN LEON Department: ER Room: 15 Gender: F [employer] Liaison: 52 : 1945 Requested By: DHRUV CELAYA PA-C Order Number: [id number] Reading MD: Sven Gordon MD Measurements Intervals [place] Rate: 66 P: 0 MD: 220 QRS: -6 QRSD: 105 T: 90 QT: 431 QTc: 452 Interpretive Statements Sinus rhythm Prolonged MD interval LVH with secondary repolarization abnormality Compared to ECG 04/03/2018 12:16:47 First degree AV block now present Junctional rhythm no longer present Electronically Signed On 05-15-2018 17:59:14 PST by Sven Gordon MD CM:EKGRPT:ELECTROCARDIOGRAM REPORT 1843 1759 DHRUV CELAYA PA-C EPIPHANY DRAFT REPORT DHRUV CELAYA PA-C
[2018-05-14 18:48] LABS: BASO % 0.5 % (0.0-1.0); EOS # 0.3 10*3/uL (0.0-0.4); EOS % 4.2 % (1.0-4.0); HEMATOCRIT 39.2 % (37.0-47.0); HEMOGLOBIN 13.7 g/dl (12.0-16.0); LYMPH # 1.8 10*3/uL (1.3-4.4); LYMPH % 23.6 % (27.0-41.0); MEAN CELL VOLUME 88.3 fl (81.0-99.0); MEAN CORPUSCULAR HGB 30.9 pg (27.0-31.0); MEAN CORPUSCULAR HGB CONC 34.9 g/dl (33.0-37.0); MEAN PLATELET VOLUME 10.2 fl (9.6-12.3); MONO # 0.5 10*3/uL (0.1-1.0); MONO % 7.3 % (3.0-9.0); NEUT # 4.8 10*3/uL (2.3-7.9); NEUT % 64.1 % (47.0-73.0); PLATELET COUNT AUTOMATED 181 10*3/uL (130-400); RED BLOOD COUNT 4.44 10*6/uL (4.10-5.10); RED CELL DISTRI WIDTH 12.9 % (0-14.5); WHITE BLOOD COUNT 7.4 10*3/uL (4.8-10.8)
[2018-05-14 19:02] LABS: ALBUMIN 3.7 gm/dl (3.1-4.5); ALKALINE PHOSPHATASE 112 U/L (45-117); BUN 15 mg/dl (7-24); CHLORIDE 109 mmol/L (98-107); POTASSIUM 3.6 mmol/L (3.5-5.1); SGOT/AST 16 IU/L (3-35); SGPT/ALT 21 U/L (12-78); SODIUM 143 mmol/L (136-145); TOTAL PROTEIN 7.7 gm/dL (6.4-8.2)
[2018-05-14 19:03] LABS: TROPONIN I 0.032 ng/ml (<0.045)
[2018-05-14 19:04] LABS: ACT PARTIAL THROMBO TIME 23.8 SECONDS (20.8-31.5)
[2018-05-14 19:30] VITALS: BP 159/81
[2018-05-14 20:05] LABS: BILIRUBIN NEGATIVE (NEGATIVE); BLOOD NEGATIVE (NEGATIVE); CLARITY CLEAR (CLEAR); COLOR YELLOW (YELLOW); GLUCOSE NEGATIVE (NEGATIVE); KETONE NEGATIVE (NEGATIVE); LEUKO ESTERASE NEGATIVE (NEGATIVE); NITRITE NEGATIVE (NEGATIVE); SPECIFIC GRAVITY <= 1.005 (1.005-1.030); UROBILINOGEN 0.2 E.U./dl (0.2-1.0)
== END 2018-05-14 21:30 | disposition short-term general hospital (02) ==
LOC: ED 17:44
PROVIDERS: Physician Assistant
DX: I63.9 Cerebral infarction, unspecified (principal); R05 Cough; E11.9 Type 2 diabetes mellitus without complications; I10 Essential (primary) hypertension; Z87.891 Personal history of nicotine dependence; Z79.899 Other long term (current) drug therapy; Z88.6 Allergy status to analgesic agent; Z91.041 Radiographic dye allergy status

== ENCOUNTER → 2018-05-27 | Outpatient (CLI) | payer MEDICARE | END | disposition home or self-care (01) | LOC: ORTHO 02:17 | DX: S42.295D Other nondisplaced fracture of upper end of left humerus, subsequent encounter for fracture with routine healing (principal); X58.XXXD Exposure to other specified factors, subsequent encounter; Z91.81 History of falling ==

== ENCOUNTER → 2018-06-30 | Outpatient (CLI) | payer MEDICARE | END | disposition home or self-care (01) | LOC: ORTHO 03:47 | DX: S42.202S Unspecified fracture of upper end of left humerus, sequela (principal); M19.012 Primary osteoarthritis, left shoulder; X58.XXXS Exposure to other specified factors, sequela ==

== ENCOUNTER 2018-07-30 19:49 | Emergency (ER) | payer MEDICARE ==
[~2018-07-30] VITALS: Ht 166.3 cm; Wt 78.9 kg
--- NOTE | ~2018-07-30 | EKG ---
[place], [place] ELECTROCARDIOGRAM REPORT NAME: BRANDEN LEON UNIT #: [id number] ROOM: DOCTOR: MISA DRAFT REPORT BIRTHDATE: [birth year] [facility] Test Date: 2018-07-30 Test Time: 22:58:05 Pat Name: BRANDEN LEON Department: Room: Gender: F Orthotic Practitioner: Rg Thurston : 1945 Requested By: ARACELIS ROQUE Order Number: [id number] Reading MD: Bobby Rocha MD Measurements Intervals [place] Rate: 69 P: 66 ND: 221 QRS: -3 QRSD: 103 T: 71 QT: 449 QTc: 481 Interpretive Statements Sinus rhythm Prolonged ND interval LVH with secondary repolarization abnormality Compared to ECG 05/14/2018 18:43:34 No significant changes Electronically Signed On 08-01-2018 13:49:46 PDT by Bobby Rocha MD CM:EKGRPT:ELECTROCARDIOGRAM REPORT 1349 ARACELIS CROWLEY DRAFT REPORT ARACELIS ROQUE DO
--- NOTE | ~2018-07-30 | EKG ---
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
[2018-07-30 20:09] LABS: BASO # 0.1 10*3/uL (0.0-0.1); BASO % 0.4 % (0.0-1.0); EOS # 0.5 10*3/uL (0.0-0.4); EOS % 4.7 % (1.0-4.0); HEMATOCRIT 42.4 % (37.0-47.0); HEMOGLOBIN 14.6 g/dl (12.0-16.0); LYMPH # 2.1 10*3/uL (1.3-4.4); LYMPH % 19.1 % (27.0-41.0); MEAN CELL VOLUME 90.4 fl (81.0-99.0); MEAN CORPUSCULAR HGB 31.1 pg (27.0-31.0); MEAN CORPUSCULAR HGB CONC 34.4 g/dl (33.0-37.0); MEAN PLATELET VOLUME 10.4 fl (9.6-12.3); MONO # 0.7 10*3/uL (0.1-1.0); MONO % 6.2 % (3.0-9.0); NEUT # 7.8 10*3/uL (2.3-7.9); NEUT % 69.4 % (47.0-73.0); PLATELET COUNT AUTOMATED 185 10*3/uL (130-400); RED BLOOD COUNT 4.69 10*6/uL (4.10-5.10); WHITE BLOOD COUNT 11.2 10*3/uL (4.8-10.8)
[2018-07-30 20:26] LABS: ALBUMIN 3.9 gm/dl (3.1-4.5); CREATININE 1.29 mg/dL (0.55-1.02); POTASSIUM 3.4 mmol/L (3.5-5.1); TOTAL PROTEIN 7.5 gm/dL (6.4-8.2)
[2018-07-30 20:33] LABS: TROPONIN I 0.057 ng/ml (<0.045)
[2018-07-30 22:18] VITALS: BP 162/68
== END 2018-07-30 23:34 | disposition home or self-care (01) ==
LOC: ED 19:49
PROVIDERS: Student in an Organized Health Care Education/Training Program
DX: R11.2 Nausea with vomiting, unspecified (principal); R19.7 Diarrhea, unspecified; R51 Headache; R79.1 Abnormal coagulation profile; I10 Essential (primary) hypertension; Z79.899 Other long term (current) drug therapy; Z88.6 Allergy status to analgesic agent; Z86.73 Personal history of transient ischemic attack (TIA), and cerebral infarction without residual deficits; Z87.891 Personal history of nicotine dependence; Z91.040 Latex allergy status

== ENCOUNTER 2018-12-27 19:06 | Emergency (ER) | payer MEDICARE ==
[~2018-12-27] VITALS: Ht 165.1 cm; Wt 78.0 kg
[2018-12-27 19:10] VITALS: BP 195/82
== END 2018-12-27 19:49 | disposition home or self-care (01) ==
LOC: ED 19:06
DX: S20.02XA Contusion of left breast, initial encounter (principal); Z87.891 Personal history of nicotine dependence; Z90.89 Acquired absence of other organs; Z91.041 Radiographic dye allergy status; Z88.5 Allergy status to narcotic agent; X58.XXXA Exposure to other specified factors, initial encounter; Y93.E1 Activity, personal bathing and showering; Y92.89 Other specified places as the place of occurrence of the external cause; Y99.9 Unspecified external cause status

== ENCOUNTER → 2018-12-31 | Outpatient (CLI) | payer MEDICARE ==
[~2018-12-31] MED LIST changes: +'CLONIDINE0.1 MG PO; +24 HOUR ALLER15.8 ML NAS; +ATORVASTATIN CA80 M1 PO; +CARVEDILOL3.125 MG PO; +CETIRIZINE10 MG PO; +IBU800 M1 PO; +LIPITOR40 MG PO; +NORVASC10 MG PO; +SINGULAIR10 M1 PO; +TESSALON PERLE100 MG PO; +TRULICITY0.75 MG/0. SC
== END | disposition home or self-care (01) ==
LOC: ORTHO 00:10
DX: S42.92XS Fracture of left shoulder girdle, part unspecified, sequela (principal); M19.012 Primary osteoarthritis, left shoulder; X58.XXXS Exposure to other specified factors, sequela

== ENCOUNTER → 2019-01-21 | Outpatient (CLI) | payer MEDICARE ==
[~2019-01-21] MED LIST changes: -'CLONIDINE0.1 MG PO; -24 HOUR ALLER15.8 ML NAS; -ATORVASTATIN CA80 M1 PO; -CARVEDILOL3.125 MG PO; -CETIRIZINE10 MG PO; -IBU800 M1 PO; -LIPITOR40 MG PO; -NORVASC10 MG PO; -SINGULAIR10 M1 PO; -TESSALON PERLE100 MG PO; -TRULICITY0.75 MG/0. SC
== END | disposition home or self-care (01) ==
LOC: MRI 14:09
DX: S46.812S Strain of other muscles, fascia and tendons at shoulder and upper arm level, left arm, sequela (principal); M19.012 Primary osteoarthritis, left shoulder; X58.XXXS Exposure to other specified factors, sequela

== ENCOUNTER 2019-03-16 17:13 | Emergency (ER) | payer MEDICARE ==
[~2019-03-16] VITALS: Ht 166.3 cm; Wt 77.1 kg
[2019-03-16 18:29] VITALS: BP 141/72
== END 2019-03-16 20:23 | disposition home or self-care (01) ==
LOC: ED 17:13
DX: S30.1XXA Contusion of abdominal wall, initial encounter (principal); S10.91XA Abrasion of unspecified part of neck, initial encounter; R51 Headache; E11.22 Type 2 diabetes mellitus with diabetic chronic kidney disease; I12.9 Hypertensive chronic kidney disease with stage 1 through stage 4 chronic kidney disease, or unspecified chronic kidney disease; N18.3 Chronic kidney disease, stage 3 (moderate); E78.5 Hyperlipidemia, unspecified; K21.9 Gastro-esophageal reflux disease without esophagitis; Z91.041 Radiographic dye allergy status; Z88.5 Allergy status to narcotic agent; Z79.899 Other long term (current) drug therapy; Z86.73 Personal history of transient ischemic attack (TIA), and cerebral infarction without residual deficits; Z90.710 Acquired absence of both cervix and uterus; Z90.49 Acquired absence of other specified parts of digestive tract; Z87.891 Personal history of nicotine dependence; Y04.2XXA Assault by strike against or bumped into by another person, initial encounter; Y93.89 Activity, other specified; Y92.89 Other specified places as the place of occurrence of the external cause; Y99.8 Other external cause status

== ENCOUNTER 2019-03-20 07:52 | Inpatient (IN) | payer MEDICARE ==
[~2019-03-20] VITALS: Ht 165.1 cm; Wt 77.7 kg
[2019-03-20] VITALS (9 sets, daily range): BP systolic 138–205; BP diastolic 60–100
[2019-03-20 08:10] LABS: BASO % 0.6 % (0.0-1.0); EOS # 0.4 10*3/uL (0.0-0.4); EOS % 5.2 % (1.0-4.0); HEMATOCRIT 40.1 % (37.0-47.0); HEMOGLOBIN 13.5 g/dl (12.0-16.0); LYMPH # 1.7 10*3/uL (1.3-4.4); LYMPH % 25.3 % (27.0-41.0); MEAN CELL VOLUME 91.3 fl (81.0-99.0); MEAN CORPUSCULAR HGB 30.8 pg (27.0-31.0); MEAN CORPUSCULAR HGB CONC 33.7 g/dl (33.0-37.0); MEAN PLATELET VOLUME 10.5 fl (9.6-12.3); MONO # 0.5 10*3/uL (0.1-1.0); NEUT # 4.1 10*3/uL (2.3-7.9); NEUT % 60.6 % (47.0-73.0); PLATELET COUNT AUTOMATED 157 10*3/uL (130-400); RED BLOOD COUNT 4.39 10*6/uL (4.10-5.10); WHITE BLOOD COUNT 6.8 10*3/uL (4.8-10.8)
[2019-03-20 08:21] LABS: ACT PARTIAL THROMBO TIME 28.3 SECONDS (20.0-32.1)
[2019-03-20 08:29] LABS: ALBUMIN 3.3 gm/dl (3.1-4.5); BUN 18 mg/dl (7-24); CHLORIDE 111 mmol/L (98-107); SGOT/AST 14 IU/L (3-35); SGPT/ALT 20 U/L (12-78); SODIUM 142 mmol/L (136-145)
[2019-03-20 08:32] LABS: ALKALINE PHOSPHATASE 89 U/L (45-117)
[2019-03-20 08:38] LABS: TROPONIN I 0.765 ng/ml (<0.045)
--- NOTE | 2019-03-20 08:44 | NUR ---
TROP 0.[address] GENTILE, STAT EKG ORDERED.
--- NOTE | 2019-03-20 09:16 | NUR ---
PT NOT WANTING TO BE ADMITTED, DR GENTILE AT THE BEDSIDE.
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
--- NOTE | 2019-03-20 10:31 | NUR ---
ASA GIVEN BY HAZARDOUS MATERIALS HANDLER
--- NOTE | 2019-03-20 11:07 | NUR ---
DR PATRICIA MADE AWARE
--- NOTE | 2019-03-20 11:54 | NUR ---
10MG IV LABETALOL GIVEN AFTER NEW IV SITE OBTAINED. SBP PRIOR TO LABETALOL [address] REIS UPDATED. WILL CONTIUE TO MONITOR PT.
--- NOTE | 2019-03-20 12:42 | NUR ---
MEDICATED PT PER PRN ORDER WITH NORCO FOR C/O LEFT SIDED CHEST PAIN THAT RATES 9/10 ON PAIN SCALE. PT DESCRIBES PAIN LEFT SIDED THAT INCREASES WITH PALPATION AND DEEP INSPIRATION. PT ALSO C/O SOB WITH THE CHEST PAIN. POX 96% ON RA.
--- NOTE | 2019-03-20 12:49 | NUR ---
10MG IV LABETALOL GIVEN PER ORDER OF DR REIS. SBP PRE MEDICATION 190. POST MEDICATION SBP 164 WITH HR 62. IV HEPARIN GTT STARTED PER ORDER.
[2019-03-20] MEDS ORDERED: NORVASC10 MG PO (13:55)
[2019-03-20] MEDS ORDERED: LIPITOR40 MG PO (13:56)
[2019-03-20] MEDS ORDERED: TRULICITY0.75 MG/0. SC (13:58)
[2019-03-20] MEDS ORDERED: 'CLONIDINE0.1 MG PO (13:58)
[2019-03-20] MEDS ORDERED: TESSALON PERLE100 MG PO (14:00)
[2019-03-20] MEDS ORDERED: NEURONTIN300 MG PO (14:00)
[2019-03-20] MEDS ORDERED: PREDNISONE10 MG PO (14:01)
[2019-03-20] MEDS ORDERED: CETIRIZINE10 MG PO (14:02)
[2019-03-20] MEDS ORDERED: DOXYCYCLINE100 M3 PO (14:02)
[2019-03-20] MEDS ORDERED: 24 HOUR ALLER15.8 ML NAS (14:06)
[2019-03-20] MEDS ORDERED: SINGULAIR10 M1 PO (14:07)
[2019-03-20] MEDS ORDERED: IBU800 M1 PO (14:26)
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
--- NOTE | 2019-03-20 21:36 | NUR ---
STATES TYLENOL WAS EFFECTIVE AT REDUCING PAIN, RN WILL CONTINUE TO MONITOR
[2019-03-21] VITALS (7 sets, daily range): BP systolic 102–154; BP diastolic 53–82
[2019-03-21 06:08] LABS: BASO % 0.4 % (0.0-1.0); EOS # 0.4 10*3/uL (0.0-0.4); EOS % 5.2 % (1.0-4.0); HEMATOCRIT 37.6 % (37.0-47.0); HEMOGLOBIN 12.7 g/dl (12.0-16.0); LYMPH # 2.4 10*3/uL (1.3-4.4); LYMPH % 35.5 % (27.0-41.0); MEAN CORPUSCULAR HGB 30.4 pg (27.0-31.0); MEAN CORPUSCULAR HGB CONC 33.8 g/dl (33.0-37.0); MEAN PLATELET VOLUME 10.9 fl (9.6-12.3); MONO # 0.5 10*3/uL (0.1-1.0); MONO % 6.8 % (3.0-9.0); NEUT # 3.5 10*3/uL (2.3-7.9); NEUT % 51.8 % (47.0-73.0); PLATELET COUNT AUTOMATED 150 10*3/uL (130-400); RED BLOOD COUNT 4.18 10*6/uL (4.10-5.10); RED CELL DISTRI WIDTH 13.1 % (0-14.5); WHITE BLOOD COUNT 6.8 10*3/uL (4.8-10.8)
[2019-03-21 06:36] LABS: BUN 17 mg/dl (7-24); CHLORIDE 112 mmol/L (98-107); POTASSIUM 3.2 mmol/L (3.5-5.1); SODIUM 143 mmol/L (136-145)
[2019-03-21 06:43] LABS: ALKALINE PHOSPHATASE 75 U/L (45-117); CHOLESTEROL 163 mg/dL (<200); CREATININE 0.95 mg/dL (0.55-1.02); FREE T4 1.36 ng/dl (0.76-1.46); HDL CHOLESTEROL 38 mg/dl (40-60); LDL CHOLESTEROL 105 mg/dL (9-159); PHOSPHOROUS 3.8 mg/dL (2.5-4.9); SGOT/AST 13 IU/L (3-35); SGPT/ALT 19 U/L (12-78); TOTAL PROTEIN 6.3 gm/dL (6.4-8.2); TRIGLYCERIDES 101 mg/dl (<150); VLDL CHOLESTEROL 20 mg/dL (6-40)
[2019-03-21 08:42] LABS: VITAMIN D, 25-HYDROXY 21.2 ng/mL (30-100)
--- NOTE | 2019-03-21 08:57 | NUR ---
patient medicated with tylenol per drs orders for complaints of mid chest pain rated 6 out of 10
--- NOTE | 2019-03-21 10:18 | NUR ---
NURSE PATTERN DUPLICATOR MADE AWARE OF TRANFER ORDER
--- NOTE | 2019-03-21 10:42 | NUR ---
PATIENT TRANSFERRED TO ROOM 406-2 FROM ICU-6 AT THIS TIME. ALL BELONGINGS SENT WITH PATIENT. REPORT GIVEN TO MIMI GUEVARA.
[2019-03-22] VITALS (7 sets, daily range): BP systolic 148–172; BP diastolic 53–86
--- NOTE | 2019-03-22 02:17 | NUR ---
PT GIVEN NORCO AT THIS TIME DUE TO GENERALIZED PAIN AND HEADACHE. WILL MONITOR FOR EFFECTIVENESS. CALL LIGHT IN REACH. IV HEPARIN DRIP INFUSING PER ORDERS. IV SITE IS PATENT. DRESSING C/D/I. SAFETY MEASURES IN PLACE.
--- NOTE | 2019-03-22 03:17 | NUR ---
PORSHA EFFECTIVE PER PT.
[2019-03-22 06:15] LABS: BASO # 0.1 10*3/uL (0.0-0.1); BASO % 0.7 % (0.0-1.0); EOS # 0.5 10*3/uL (0.0-0.4); EOS % 6.5 % (1.0-4.0); HEMATOCRIT 36.2 % (37.0-47.0); HEMOGLOBIN 12.2 g/dl (12.0-16.0); LYMPH # 2.4 10*3/uL (1.3-4.4); LYMPH % 30.7 % (27.0-41.0); MEAN CELL VOLUME 91.6 fl (81.0-99.0); MEAN CORPUSCULAR HGB 30.9 pg (27.0-31.0); MEAN CORPUSCULAR HGB CONC 33.7 g/dl (33.0-37.0); MONO # 0.5 10*3/uL (0.1-1.0); MONO % 6.4 % (3.0-9.0); NEUT # 4.3 10*3/uL (2.3-7.9); NEUT % 55.3 % (47.0-73.0); PLATELET COUNT AUTOMATED 155 10*3/uL (130-400); RED BLOOD COUNT 3.95 10*6/uL (4.10-5.10); RED CELL DISTRI WIDTH 13.2 % (0-14.5); WHITE BLOOD COUNT 7.7 10*3/uL (4.8-10.8)
[2019-03-22 06:45] LABS: BUN 20 mg/dl (7-24); CHLORIDE 112 mmol/L (98-107); POTASSIUM 3.4 mmol/L (3.5-5.1); SODIUM 144 mmol/L (136-145)
--- NOTE | 2019-03-22 06:47 | NUR ---
PT IV SITE IS PATENT. HEPARIN DRIP INFUSING PER ORDER. RESPIRATIONS EASY AND UNLABORED. NO COMPLAINTS ARE VOICED BY PT AT THIS TIME. WILL CONTINUE TO MONITOR. CALL LIGHT IN REACH.
--- NOTE | 2019-03-22 06:50 | NUR ---
PT APTT 57.2. NO CHANGE NEEDED TO HEPARIN DRIP. NEW ORDER PLACED FOR APTT TO BE DRAWN TOMORROW MORNING AT 0530.
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
--- NOTE | 2019-03-22 21:50 | NUR ---
REPEAT BP 168/82 MANUALLY FOLLOWING MEDICATIONS. PO CATAPRES ADMINISTERED PER PRN ORDER FOR ELEVATED BP. WILL MONITOR EFFECTIVENESS. CALL LIGHT IN REACH. HEPARIN GTT INFUSING PER ORDER.
[2019-03-23] VITALS: BP 162/60
[2019-03-23 05:42] LABS: CREATININE 1.54 mg/dL (0.55-1.02); POTASSIUM 3.5 mmol/L (3.5-5.1)
[2019-03-23 07:42] VITALS: BP 100/60
--- NOTE | 2019-03-23 07:42 | NUR ---
ASSESSMENT DOCUMENTION COMPLETED. PT SLEEPING UPON ENTERING ROOM BUT AROUSED EASILY, DENIES ANY PAIN/DISCOMFORT AT TIME OF ASSESSMENT, RESTING IN BED WHILE WAITING TO GO FOR STRESS TEST. ROXANNE GUTIERREZ SPNRCC
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
--- NOTE | 2019-03-23 09:21 | NUR ---
PATIENT TAKEN OFF FLOOR FOR SCHEDULED STRESS TEST.
--- NOTE | 2019-03-23 10:00 | NUR ---
PT OFF FLOOR FOR STRESS TEST. ROXANNE GUTIERREZ SPNRCC
--- NOTE | 2019-03-23 10:26 | NUR ---
INFORMED CONSENT SIGNED FOR LEXISCAN STRESS TEST WITH DR. QUINTANA. RESTING EKG SINUS BRADYCARDIA, HR 59, BP 140/60. PULSE X 96% AND LUNGS CLEAR BILATERALLY. COMPLETED ONE MINUTE OF LEXISCAN PROTOCOL RECEIVING LEXISCAN 0.4MG OVER 10 SECONDS. PVC'S NOTED WITH NO ST CHANGES. PT C/O ODD FEELING. LAST RECOVERY HR 69, BP 132/78. WAITING NUCLEAR SCANNING IN STABLE CONDITION.
--- NOTE | 2019-03-23 12:00 | NUR ---
PT REMAINS OFF FLOOR FOR STRESS TEST. ROXANNE GUTIERREZ SPNRCC
--- NOTE | 2019-03-23 12:23 | NUR ---
PATIENT RETURNED TO ROOM FROM SCHEDULED STRESS TEST.
[2019-03-23 12:30] VITALS: BP 142/62
--- NOTE | 2019-03-23 12:30 | NUR ---
PT RETURNED TO FLOOR, WAS PLEASANT & COOPERATIVE. ASSESSMENT DOCUMENTATION COMPLETED. ALSO C/O PAIN, MANAGED DOCUMENTED. ROXANNE GUTIERREZ SPCC
--- NOTE | 2019-03-23 12:50 | NUR ---
PT STATED "11/15" L SHOULDER PAIN, MEDICATION ADMINISTERED DOCUMENTED. ROXANNE GUTIERREZ SPNRCC
--- NOTE | 2019-03-23 13:30 | NUR ---
VERBALIZES A SLIGHT DECREASE IN PAIN DOCUMENTED. SITTING UP IN BED VISITING FAMILY WITH NO FURTHER C/O AT THIS TIME. HEPARIN INFUSING. NO S/S OF BLEEDING. REPORT GIVEN TO MARTHA MEDINA
--- NOTE | 2019-03-23 15:43 | NUR ---
PER , STRESS TEST WAS NORMAL AND PATIENT CAN BE DISCHARGED. NOTIFIED.
[2019-03-23] MEDS ORDERED: CARVEDILOL3.125 MG PO (15:51)
[2019-03-23] MEDS ORDERED: HYDR25T PO (15:51)
[2019-03-23] MEDS ORDERED: LISINOPRIL20 MG PO (15:51)
[2019-03-23] MEDS ORDERED: ATORVASTATIN CA80 M1 PO (15:51)
[2019-03-23 16:00] VITALS: BP 159/64
--- NOTE | 2019-03-23 16:55 | NUR ---
Discharge instructions reviewed with patient/family. Patient receptive and verbalizes understanding. Follow-up care arranged. Written instructions given to patient/family. MARTHA ABDULLAHI.
== END 2019-03-23 18:07 | disposition home or self-care (01) | DRG 281 ==
LOC: ED 07:52 → 4E 09:05 → EDHOLD 09:05 → ICCU 09:48 → 4E 03-21 10:47
PROVIDERS: Emergency Medicine; Internal Medicine; ADMIT Emergency Medicine
PROC: 3E073KZ Introduction of Other Diagnostic Substance into Coronary Artery, Percutaneous Approach (ICD-10-PCS; principal; 2019-03-23)
PROC: 4A02XM4 Measurement of Cardiac Total Activity, External Approach (ICD-10-PCS; principal; 2019-03-23)
DX: S26.91XA Contusion of heart, unspecified with or without hemopericardium, initial encounter (principal); I21.4 Non-ST elevation (NSTEMI) myocardial infarction; I16.1 Hypertensive emergency; E44.1 Mild protein-calorie malnutrition; N18.3 Chronic kidney disease, stage 3 (moderate); E87.8 Other disorders of electrolyte and fluid balance, not elsewhere classified; E78.5 Hyperlipidemia, unspecified; K21.9 Gastro-esophageal reflux disease without esophagitis; E11.22 Type 2 diabetes mellitus with diabetic chronic kidney disease; E55.9 Vitamin D deficiency, unspecified; M54.9 Dorsalgia, unspecified; G89.29 Other chronic pain; E87.6 Hypokalemia; E11.51 Type 2 diabetes mellitus with diabetic peripheral angiopathy without gangrene; I25.10 Atherosclerotic heart disease of native coronary artery without angina pectoris; R00.1 Bradycardia, unspecified; I13.10 Hypertensive heart and chronic kidney disease without heart failure, with stage 1 through stage 4 chronic kidney disease, or unspecified chronic kidney disease; I35.1 Nonrheumatic aortic (valve) insufficiency; S30.1XXA Contusion of abdominal wall, initial encounter; S20.229A Contusion of unspecified back wall of thorax, initial encounter; Y08.89XA Assault by other specified means, initial encounter; Y93.89 Activity, other specified; Y92.89 Other specified places as the place of occurrence of the external cause; Y99.8 Other external cause status; Z79.899 Other long term (current) drug therapy; Z86.73 Personal history of transient ischemic attack (TIA), and cerebral infarction without residual deficits; Z88.5 Allergy status to narcotic agent; Z91.041 Radiographic dye allergy status; Z91.011 Allergy to milk products; Z90.49 Acquired absence of other specified parts of digestive tract; Z98.1 Arthrodesis status; Z90.710 Acquired absence of both cervix and uterus; Z87.891 Personal history of nicotine dependence; Z82.49 Family history of ischemic heart disease and other diseases of the circulatory system; Z82.3 Family history of stroke; Z80.8 Family history of malignant neoplasm of other organs or systems; Z83.79 Family history of other diseases of the digestive system; Z98.49 Cataract extraction status, unspecified eye; Z68.28 Body mass index [BMI] 28.0-28.9, adult

== ENCOUNTER 2019-05-09 19:15 | Inpatient (IN) | payer MEDICARE ==
[~2019-05-09] VITALS: Ht 165.1 cm; Wt 80.5 kg
[2019-05-09] VITALS (10 sets, daily range): BP systolic 101–226; BP diastolic 42–123
[~2019-05-09 19:15] MED LIST changes: +'CLONIDINE0.1 MG PO; +24 HOUR ALLER15.8 ML NAS; +ATORVASTATIN CA80 M1 PO; +CARVEDILOL3.125 MG PO; +CETIRIZINE10 MG PO; +IBU800 M1 PO; +LIPITOR40 MG PO; +NORVASC10 MG PO; +SINGULAIR10 M1 PO; +TESSALON PERLE100 MG PO; +TRULICITY0.75 MG/0. SC
[2019-05-09 19:55] LABS: BASO % 0.4 % (0.0-1.0); EOS # 0.7 10*3/uL (0.0-0.4); EOS % 6.5 % (1.0-4.0); HEMATOCRIT 41.5 % (37.0-47.0); HEMOGLOBIN 13.8 g/dl (12.0-16.0); LYMPH # 1.2 10*3/uL (1.3-4.4); LYMPH % 11.4 % (27.0-41.0); MEAN CELL VOLUME 91.4 fl (81.0-99.0); MEAN CORPUSCULAR HGB 30.4 pg (27.0-31.0); MEAN CORPUSCULAR HGB CONC 33.3 g/dl (33.0-37.0); MEAN PLATELET VOLUME 10.2 fl (9.6-12.3); MONO # 0.6 10*3/uL (0.1-1.0); MONO % 5.9 % (3.0-9.0); NEUT # 7.6 10*3/uL (2.3-7.9); NEUT % 75.6 % (47.0-73.0); PLATELET COUNT AUTOMATED 163 10*3/uL (130-400); RED BLOOD COUNT 4.54 10*6/uL (4.10-5.10); RED CELL DISTRI WIDTH 12.3 % (0-14.5); WHITE BLOOD COUNT 10.1 10*3/uL (4.8-10.8)
[2019-05-09 20:07] LABS: ACT PARTIAL THROMBO TIME 26.8 SECONDS (20.0-32.1); INTERNATIONAL NORM RATIO 0.9 (2.0-3.5)
[2019-05-09 20:12] LABS: ALBUMIN 3.7 gm/dl (3.1-4.5); ALKALINE PHOSPHATASE 94 U/L (45-117); BUN 19 mg/dl (7-24); CHLORIDE 110 mmol/L (98-107); CREATININE 1.04 mg/dL (0.55-1.02); POTASSIUM 3.9 mmol/L (3.5-5.1); SGOT/AST 11 IU/L (3-35); SGPT/ALT 19 U/L (12-78); SODIUM 142 mmol/L (136-145); TOTAL PROTEIN 7.7 gm/dL (6.4-8.2)
[2019-05-09 20:15] LABS: TROPONIN I 0.056 ng/ml (<0.045)
--- NOTE | 2019-05-09 22:58 | NUR ---
PT'S EKG SHOWS TRIGEMINY, TACHYCARDIC AT 108BPM.
--- NOTE | 2019-05-09 23:36 | NUR ---
A 73, admitted to , under the services of LAUREN Pina DO with a diagnosis of ELEVATED TROPONIN LEVEL, HYPERTENSIVE EMERGENCY. Chief complaint is COUGH,CONGESTION,CHEST PAIN. Patient arrived via bed from ER. Monitor applied. Initial assessment completed. Vital signs taken and recorded. LAUREN PINA DO notified of admission to the unit. Orders received. See assessment for past medical history, medications and allergies. Patient and/or family oriented to unit. [facility] visitation policy reviewed. Clothing/patient valuable form completed. VINI STANLEY
[2019-05-10] MEDS ORDERED: SYMB160 INH (01:34)
[2019-05-10 01:37] VITALS: BP 140/60
--- NOTE | 2019-05-10 01:45 | NUR ---
DR PATRICIA NOTITIFED THAT MED REC IS UP TO DATE AT THIS TIME.
--- NOTE | 2019-05-10 01:46 | NUR ---
CONSULT CALLED TO DR STRAUSS AT THIS TIME. NO NEW ORDERS RECEIVED. PHYSICIAN STATES THAT HE WILL SEE PATIENT IN THE MORNING.
--- NOTE | 2019-05-10 03:22 | NUR ---
Shift chart check completed.
[2019-05-10 04:19] LABS: BASO % 0.2 % (0.0-1.0); EOS # 0.3 10*3/uL (0.0-0.4); HEMATOCRIT 37.3 % (37.0-47.0); HEMOGLOBIN 12.5 g/dl (12.0-16.0); LYMPH # 0.7 10*3/uL (1.3-4.4); MEAN CELL VOLUME 90.8 fl (81.0-99.0); MEAN CORPUSCULAR HGB 30.4 pg (27.0-31.0); MEAN CORPUSCULAR HGB CONC 33.5 g/dl (33.0-37.0); MEAN PLATELET VOLUME 10.2 fl (9.6-12.3); MONO # 0.5 10*3/uL (0.1-1.0); MONO % 6.4 % (3.0-9.0); NEUT # 6.9 10*3/uL (2.3-7.9); NEUT % 81.2 % (47.0-73.0); PLATELET COUNT AUTOMATED 159 10*3/uL (130-400); RED BLOOD COUNT 4.11 10*6/uL (4.10-5.10); RED CELL DISTRI WIDTH 12.3 % (0-14.5); WHITE BLOOD COUNT 8.5 10*3/uL (4.8-10.8)
[2019-05-10 04:31] LABS: CREATININE 1.15 mg/dL (0.55-1.02); POTASSIUM 3.7 mmol/L (3.5-5.1)
--- NOTE | 2019-05-10 04:38 | NUR ---
DR PATRICIA NOTIFIED OF CRITICAL TROPONIN OF 0.491. NEW ORDERS RECEIVED TO D/C 40 MG LOVENOX QD, 1MG/KG LOVENOX BID, GIVE COREG 3.125 MG PO NOW. WILL MEDICATE PT WHEN MEDICATION AVAILABLE TO PULL.
[2019-05-10 08:00] VITALS: BP 136/62
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
[2019-05-10 12:00] VITALS: BP 145/64
[2019-05-10 16:00] VITALS: BP 168/75
--- NOTE | 2019-05-10 17:00 | NUR ---
PT RESTING, DENIES NEEDS AT THIS TIME. LUNGS DIMINISHED. ABD SOFT/NONTNDER, NO EDEMA. DENIES NEEDS AT THIS TIME. CALL LIGHT IS WITHIN REACH.
[2019-05-10 20:00] VITALS: BP 159/52
--- NOTE | 2019-05-10 23:14 | NUR ---
TYLENOL ADMINISTERED FOR FEVER 101.5. WILL [id number].
[2019-05-11] VITALS: BP 148/44
--- NOTE | 2019-05-11 03:02 | NUR ---
24 HOUR CHART CHECK COMPLETE.
--- NOTE | 2019-05-11 07:55 | NUR ---
PT STATES THAT SHE HAS A HEADACHE AND PAIN IN HER CHEST FROM COUGHING. RATES PAIN AN 8 OUT OF 10 ON 1 TO 10 PAIN SCALE. TYLENOL ADMINISTERED. ANDRES KILPATRICKCC
[2019-05-11 08:00] VITALS: BP 130/64
--- NOTE | 2019-05-11 08:00 | NUR ---
AM ASSESSMENT COMPLETED AND CHARTED. PT RESTING IN BED TEARFUL BUT RELAXES WITH 1 ON 1 CARE. WILL CONTINUE TO MONITOR. ANDRES SPEARS SPSRAVANCC
[2019-05-11 08:53] LABS: BASO % 0.2 % (0.0-1.0); EOS % 0.5 % (1.0-4.0); HEMATOCRIT 36.6 % (37.0-47.0); HEMOGLOBIN 12.3 g/dl (12.0-16.0); LYMPH # 0.7 10*3/uL (1.3-4.4); LYMPH % 10.9 % (27.0-41.0); MEAN CELL VOLUME 91.5 fl (81.0-99.0); MEAN CORPUSCULAR HGB 30.8 pg (27.0-31.0); MEAN CORPUSCULAR HGB CONC 33.6 g/dl (33.0-37.0); MEAN PLATELET VOLUME 10.6 fl (9.6-12.3); MONO # 0.6 10*3/uL (0.1-1.0); NEUT # 4.9 10*3/uL (2.3-7.9); NEUT % 78.1 % (47.0-73.0); PLATELET COUNT AUTOMATED 123 10*3/uL (130-400); RED CELL DISTRI WIDTH 12.5 % (0-14.5); WHITE BLOOD COUNT 6.2 10*3/uL (4.8-10.8)
--- NOTE | 2019-05-11 08:55 | NUR ---
TYLENOL EFFECTIVE FOR HEADACHE. ANDRES SPEARS SPNRCC
--- NOTE | 2019-05-11 09:00 | NUR ---
case management visits with patient, she states she will return home when medically stable and denies any home needs
[2019-05-11 09:13] LABS: BUN 16 mg/dl (7-24); CHLORIDE 109 mmol/L (98-107); CREATININE 0.98 mg/dL (0.55-1.02); POTASSIUM 3.4 mmol/L (3.5-5.1); SODIUM 139 mmol/L (136-145)
--- NOTE | 2019-05-11 10:00 | NUR ---
PT IS RESTING IN BED. DENIES SOB. PT SAYS THAT CHEST IS FEELING BETTER. WILL CONTINUE TO MONITOR. ANDRES SPEARS [facility]
[2019-05-11 12:00] VITALS: BP 122/58
--- NOTE | 2019-05-11 12:00 | NUR ---
PT IS RESTING COMFORTABLY. PT REFUSES TO GET A BATH. PT REFUSES TO EAT FOOD BUT WILL DRINK WATER AND SPRITE. [facility]
--- NOTE | 2019-05-11 13:18 | NUR ---
PT RESTING COMFORTABLY IN BED. NO COMPLAINTS AT THIS TIME. ANDRES SPEARS [facility]
--- NOTE | 2019-05-11 13:23 | NUR ---
PHYSICAL THERAPY Attempted to see pt for PT arelisal in bed, states "I dont feel well my chest hurts too much from coughing" ed pt on benefit from getting up and getting moving stating she will "try in the morning" will follow Sophie Zuluaga PT
--- NOTE | 2019-05-11 14:16 | NUR ---
Occupational therapy orders received and chart reviewed. Patient refusing an OT evaluation at this time stating her chest hurts. Per patient, she would prefer an evaluation in the morning. Will follow up. Thank you. Radha Solomon, OTR/L
[2019-05-11 16:00] VITALS: BP 147/53
--- NOTE | 2019-05-11 19:59 | NUR ---
SPOKE WITH DR REIS REGARDING PT REQUEST FOR CONTINUATION OF HOME PAIN MEDICATION FOR BACK PAIN RATED 7/10. AWAITING NEW ORDERS.
[2019-05-11 20:00] VITALS: BP 136/47
--- NOTE | 2019-05-11 21:14 | NUR ---
PRN [facility] ADMINISTERED FOR PT C/O BACK PAIN RATED A 7/10. WILL MONITOR AND REASSESS. NO OTHER COMPLAINTS AT THIS TIME.
[2019-05-12] VITALS: BP 123/44
--- NOTE | 2019-05-12 01:23 | NUR ---
24 HOUR CHART CHECK COMPLETE.
[2019-05-12 06:45] LABS: BASO % 0.3 % (0.0-1.0); EOS % 0.8 % (1.0-4.0); HEMATOCRIT 35.9 % (37.0-47.0); HEMOGLOBIN 11.8 g/dl (12.0-16.0); LYMPH # 0.7 10*3/uL (1.3-4.4); LYMPH % 18.9 % (27.0-41.0); MEAN CELL VOLUME 91.1 fl (81.0-99.0); MEAN CORPUSCULAR HGB 29.9 pg (27.0-31.0); MEAN CORPUSCULAR HGB CONC 32.9 g/dl (33.0-37.0); MEAN PLATELET VOLUME 10.4 fl (9.6-12.3); MONO # 0.4 10*3/uL (0.1-1.0); MONO % 10.4 % (3.0-9.0); NEUT # 2.5 10*3/uL (2.3-7.9); NEUT % 69.6 % (47.0-73.0); PLATELET COUNT AUTOMATED 121 10*3/uL (130-400); RED BLOOD COUNT 3.94 10*6/uL (4.10-5.10); RED CELL DISTRI WIDTH 12.5 % (0-14.5); WHITE BLOOD COUNT 3.6 10*3/uL (4.8-10.8)
[2019-05-12 06:50] LABS: BUN 12 mg/dl (7-24); CHLORIDE 111 mmol/L (98-107); CREATININE 0.99 mg/dL (0.55-1.02); POTASSIUM 3.5 mmol/L (3.5-5.1); SODIUM 141 mmol/L (136-145)
[2019-05-12 08:00] VITALS: BP 156/72
--- NOTE | 2019-05-12 09:00 | NUR ---
case management visits with patient, she states she will return home when medically stable and denies any home needs
[2019-05-12 12:00] VITALS: BP 133/48
--- NOTE | 2019-05-12 14:14 | NUR ---
case management faxed patient's information, face to face, home health order to [facility], will notify them when patient is discharged
--- NOTE | 2019-05-12 14:37 | NUR ---
PHYSICAL THERAPY Attempted to see pt in room for eval pt up ambulating in room states she has been getting in/out bed by herself going to BR and amb in hallways. Per pt "I go slow but I do fine" discussed PT and she states she is good andwill cont to to things "on my own" discussed steps and pt states she has no stairs to enter home. Pt amb in hallway 50 ft no AD slow but steady gt does not want any device for endurance such as a fww, returned to room strainghtening bed linen and then independent for sit to supine. Pt declining any further therapy states she is feeling much better. Will discontinue PT at this time per pt request. Sophie Zuluaga PT
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
[2019-05-12 16:00] VITALS: BP 165/70
[2019-05-12 20:00] VITALS: BP 177/89
--- NOTE | 2019-05-12 20:47 | NUR ---
MEDICATED WITH [facility] FOR C/O LEFT SHOULDER & BACK PAIN.
--- NOTE | 2019-05-12 21:00 | NUR ---
BLOOD SUGAR 90. PT. VOICES NO C/O AT THIS TIME. CALL LIGHT WITHIN REACH.
[2019-05-13] VITALS: BP 156/58
--- NOTE | 2019-05-13 04:00 | NUR ---
RESTING IN BED WITH EYES CLOSED; CALL LIGHT WITHIN REACH.
--- NOTE | 2019-05-13 05:52 | NUR ---
BLOOD SUGAR 70. PT. VOICES NO C/O AT THIS TIME. CALL LIGHT WITHIN REACH.
[2019-05-13 08:00] VITALS: BP 132/80
--- NOTE | 2019-05-13 09:54 | NUR ---
PT C/O 10/15 SHOULDER AND BACK PAIN. MEDICATED PER ORDER. WILL MONITOR FOR RELIEF. VOICES NO CONCERNS AT THIS TIME. RESTING IN BED. CALL LIGHT WITHIN REACH. RESPS EASY AND NON LABORED.
--- NOTE | 2019-05-13 10:29 | NUR ---
[facility] EFFECTIVE PER PT
[2019-05-13] MEDS ORDERED: MUCINEX1200 M1 PO (11:37)
[2019-05-13] MEDS ORDERED: AVPAK AZITHROM250 MG PO (11:37)
[2019-05-13] MEDS ORDERED: LISINOPRIL10 M1 PO (11:37)
--- NOTE | 2019-05-13 12:47 | NUR ---
Discharge instructions reviewed with patient/family. Patient receptive and verbalizes understanding. Follow-up care arranged. Written instructions given to patient/family. HISSOM,LUCIEN The Discharge Plan/Instructions have been completed.
--- NOTE | 2019-05-13 12:56 | NUR ---
case management visits with patient, she states she will return home when medically stable, [facility] referral was send and they will visit her at home, case management will follow
--- NOTE | 2019-05-13 13:03 | NUR ---
10:20 AM PT ASSSESSED FOR HOME O2. RESTING RA SPO2: 97% HR 72/MIN AMBULATORY RA SPO2: 95-97%. PT DOSE NOT QUALIFY FOR HOME O2.
== END 2019-05-13 12:47 | disposition home or self-care (01) | DRG 871 ==
LOC: ED 19:15 → 4E 22:00 → EDHOLD 22:00 → 4E 23:11
PROVIDERS: Emergency Medicine Emergency Medical Services; Internal Medicine; ADMIT Family Medicine
DX: A41.9 Sepsis, unspecified organism (principal); J18.9 Pneumonia, unspecified organism; I16.1 Hypertensive emergency; J40 Bronchitis, not specified as acute or chronic; B34.9 Viral infection, unspecified; R65.20 Severe sepsis without septic shock; E87.8 Other disorders of electrolyte and fluid balance, not elsewhere classified; E78.5 Hyperlipidemia, unspecified; K21.9 Gastro-esophageal reflux disease without esophagitis; I99.9 Unspecified disorder of circulatory system; E11.22 Type 2 diabetes mellitus with diabetic chronic kidney disease; N18.3 Chronic kidney disease, stage 3 (moderate); E83.41 Hypermagnesemia; I12.9 Hypertensive chronic kidney disease with stage 1 through stage 4 chronic kidney disease, or unspecified chronic kidney disease; I25.2 Old myocardial infarction; Z88.5 Allergy status to narcotic agent; Z88.8 Allergy status to other drugs, medicaments and biological substances; Z90.710 Acquired absence of both cervix and uterus; Z98.49 Cataract extraction status, unspecified eye; Z87.891 Personal history of nicotine dependence; Z82.49 Family history of ischemic heart disease and other diseases of the circulatory system; Z93.3 Colostomy status; Z82.3 Family history of stroke; Z79.899 Other long term (current) drug therapy

== ENCOUNTER 2019-07-02 00:32 | Emergency (ER) | payer MEDICARE ==
[~2019-07-02] VITALS: Wt 87.1 kg
[~2019-07-02 00:32] MED LIST changes: +AVPAK AZITHROM250 MG PO; +MUCINEX1200 M1 PO; +SYMB160 INH
[2019-07-02 01:00] VITALS: BP 140/80
[2019-07-02 01:04] LABS: BASO # 0.1 10*3/uL (0.0-0.1); BASO % 0.7 % (0.0-1.0); EOS # 0.5 10*3/uL (0.0-0.4); EOS % 5.7 % (1.0-4.0); HEMATOCRIT 41.9 % (37.0-47.0); HEMOGLOBIN 13.9 g/dl (12.0-16.0); LYMPH # 2.2 10*3/uL (1.3-4.4); LYMPH % 24.5 % (27.0-41.0); MEAN CELL VOLUME 90.7 fl (81.0-99.0); MEAN CORPUSCULAR HGB 30.1 pg (27.0-31.0); MEAN CORPUSCULAR HGB CONC 33.2 g/dl (33.0-37.0); MEAN PLATELET VOLUME 10.6 fl (9.6-12.3); MONO # 0.7 10*3/uL (0.1-1.0); MONO % 7.2 % (3.0-9.0); NEUT # 5.6 10*3/uL (2.3-7.9); NEUT % 61.7 % (47.0-73.0); PLATELET COUNT AUTOMATED 177 10*3/uL (130-400); RED BLOOD COUNT 4.62 10*6/uL (4.10-5.10); RED CELL DISTRI WIDTH 13.3 % (0-14.5); WHITE BLOOD COUNT 9.1 10*3/uL (4.8-10.8)
[2019-07-02 01:14] LABS: INTERNATIONAL NORM RATIO 0.9 (2.0-3.5)
[2019-07-02 01:19] LABS: ALBUMIN 3.6 gm/dl (3.1-4.5); ALKALINE PHOSPHATASE 99 U/L (45-117); BUN 26 mg/dl (7-24); CHLORIDE 108 mmol/L (98-107); CREATININE 1.07 mg/dL (0.55-1.02); POTASSIUM 4.2 mmol/L (3.5-5.1); SGOT/AST 19 IU/L (3-35); SGPT/ALT 20 U/L (12-78); SODIUM 140 mmol/L (136-145); TOTAL PROTEIN 7.4 gm/dL (6.4-8.2)
[2019-07-02 01:44] LABS: TROPONIN I 0.059 ng/ml (<0.045)
== END 2019-07-02 03:09 | disposition short-term general hospital (02) ==
LOC: ED 00:32
PROVIDERS: Emergency Medicine
DX: R51 Headache (principal); R20.0 Anesthesia of skin; R25.1 Tremor, unspecified; K21.9 Gastro-esophageal reflux disease without esophagitis; I10 Essential (primary) hypertension; I12.9 Hypertensive chronic kidney disease with stage 1 through stage 4 chronic kidney disease, or unspecified chronic kidney disease; E11.22 Type 2 diabetes mellitus with diabetic chronic kidney disease; N18.3 Chronic kidney disease, stage 3 (moderate); Z86.73 Personal history of transient ischemic attack (TIA), and cerebral infarction without residual deficits; Z91.041 Radiographic dye allergy status; Z88.6 Allergy status to analgesic agent; Z91.011 Allergy to milk products; Z79.899 Other long term (current) drug therapy; Z87.891 Personal history of nicotine dependence

== ENCOUNTER 2019-08-10 21:47 | Emergency (ER) | payer MEDICARE ==
[2019-08-10 21:56] VITALS: BP 208/82
== END 2019-08-11 00:45 | disposition home or self-care (01) ==
LOC: ED 21:47
DX: S20.20XA Contusion of thorax, unspecified, initial encounter (principal); Z88.5 Allergy status to narcotic agent; Z91.041 Radiographic dye allergy status; Z79.899 Other long term (current) drug therapy; Z79.2 Long term (current) use of antibiotics; Y08.89XA Assault by other specified means, initial encounter; Y93.89 Activity, other specified; Y92.89 Other specified places as the place of occurrence of the external cause; Y99.8 Other external cause status

== ENCOUNTER 2019-08-23 20:41 | Emergency (ER) | payer MEDICARE ==
[~2019-08-23] VITALS: Ht 167.6 cm; Wt 77.1 kg
[2019-08-23 21:12] VITALS: BP 220/102
== END 2019-08-23 23:58 | disposition home or self-care (01) ==
LOC: ED 20:41
DX: S09.90XA Unspecified injury of head, initial encounter (principal); M47.812 Spondylosis without myelopathy or radiculopathy, cervical region; M47.816 Spondylosis without myelopathy or radiculopathy, lumbar region; E78.5 Hyperlipidemia, unspecified; E11.9 Type 2 diabetes mellitus without complications; K21.9 Gastro-esophageal reflux disease without esophagitis; M19.90 Unspecified osteoarthritis, unspecified site; E78.00 Pure hypercholesterolemia, unspecified; W19.XXXA Unspecified fall, initial encounter; Z88.5 Allergy status to narcotic agent; Z88.8 Allergy status to other drugs, medicaments and biological substances; Z79.899 Other long term (current) drug therapy; Z90.49 Acquired absence of other specified parts of digestive tract; Z90.710 Acquired absence of both cervix and uterus; Y93.89 Activity, other specified; Y92.89 Other specified places as the place of occurrence of the external cause; Y99.8 Other external cause status

== ENCOUNTER 2019-12-03 16:38 | Emergency (ER) | payer MEDICARE ==
[~2019-12-03] VITALS: Wt 77.6 kg
[2019-12-03 18:33] LABS: BASO % 0.5 % (0.0-1.0); EOS # 0.3 10*3/uL (0.0-0.4); EOS % 3.1 % (1.0-4.0); HEMATOCRIT 38.8 % (37.0-47.0); LYMPH # 1.8 10*3/uL (1.3-4.4); LYMPH % 21.2 % (27.0-41.0); MEAN CELL VOLUME 89.6 fl (81.0-99.0); MEAN CORPUSCULAR HGB 29.8 pg (27.0-31.0); MEAN CORPUSCULAR HGB CONC 33.2 g/dl (33.0-37.0); MEAN PLATELET VOLUME 10.2 fl (9.6-12.3); MONO # 0.5 10*3/uL (0.1-1.0); NEUT # 5.9 10*3/uL (2.3-7.9); PLATELET COUNT AUTOMATED 159 10*3/uL (130-400); RED BLOOD COUNT 4.33 10*6/uL (4.10-5.10); RED CELL DISTRI WIDTH 13.2 % (0-14.5); WHITE BLOOD COUNT 8.5 10*3/uL (4.8-10.8)
[2019-12-03 18:47] LABS: ALBUMIN 3.6 gm/dl (3.1-4.5); CREATININE 1.18 mg/dL (0.55-1.02); POTASSIUM 3.9 mmol/L (3.5-5.1); TOTAL PROTEIN 7.6 gm/dL (6.4-8.2)
[2019-12-03 20:45] VITALS: BP 161/61
== END 2019-12-03 20:56 | disposition home or self-care (01) ==
LOC: ED 16:38
PROVIDERS: Nurse Practitioner Family
DX: I10 Essential (primary) hypertension (principal); K21.9 Gastro-esophageal reflux disease without esophagitis; I12.9 Hypertensive chronic kidney disease with stage 1 through stage 4 chronic kidney disease, or unspecified chronic kidney disease; E11.22 Type 2 diabetes mellitus with diabetic chronic kidney disease; N18.3 Chronic kidney disease, stage 3 (moderate); Z91.041 Radiographic dye allergy status; Z88.6 Allergy status to analgesic agent; Z79.899 Other long term (current) drug therapy; Z87.891 Personal history of nicotine dependence

== ENCOUNTER 2020-02-28 17:57 | Emergency (ER) | payer MEDICARE ==
[~2020-02-28] VITALS: Ht 165.1 cm; Wt 77.1 kg
[2020-02-28 19:20] VITALS: BP 150/84
[2020-02-28 20:15] LABS: ALKALINE PHOSPHATASE 86 U/L (45-117); BUN 37 mg/dl (7-24); CHLORIDE 107 mmol/L (98-107); CPK 99 U/L (26-192); CREATININE 1.38 mg/dL (0.55-1.02); POTASSIUM 4.1 mmol/L (3.5-5.1); SGOT/AST 19 IU/L (3-35); SGPT/ALT 21 U/L (12-78); SODIUM 138 mmol/L (136-145); TOTAL PROTEIN 8.1 gm/dL (6.4-8.2)
== END 2020-02-28 23:16 | disposition home or self-care (01) ==
LOC: ED 17:57
PROVIDERS: Emergency Medicine
DX: S20.212A Contusion of left front wall of thorax, initial encounter (principal); I12.9 Hypertensive chronic kidney disease with stage 1 through stage 4 chronic kidney disease, or unspecified chronic kidney disease; E11.22 Type 2 diabetes mellitus with diabetic chronic kidney disease; N18.30 Chronic kidney disease, stage 3 unspecified; K21.9 Gastro-esophageal reflux disease without esophagitis; Z91.041 Radiographic dye allergy status; Z88.6 Allergy status to analgesic agent; Z91.011 Allergy to milk products; Z79.899 Other long term (current) drug therapy; Z87.891 Personal history of nicotine dependence; W01.0XXA Fall on same level from slipping, tripping and stumbling without subsequent striking against object, initial encounter; Y93.89 Activity, other specified; Y92.89 Other specified places as the place of occurrence of the external cause; Y99.8 Other external cause status

== ENCOUNTER 2020-03-12 21:09 | Emergency (ER) | payer MEDICARE ==
[~2020-03-12] VITALS: Ht 165.1 cm; Wt 78.9 kg
== END 2020-03-13 00:32 | disposition home or self-care (01) ==
LOC: ED 21:09
DX: S46.911A Strain of unspecified muscle, fascia and tendon at shoulder and upper arm level, right arm, initial encounter (principal); S60.221A Contusion of right hand, initial encounter; S00.03XA Contusion of scalp, initial encounter; I12.9 Hypertensive chronic kidney disease with stage 1 through stage 4 chronic kidney disease, or unspecified chronic kidney disease; E11.22 Type 2 diabetes mellitus with diabetic chronic kidney disease; N18.30 Chronic kidney disease, stage 3 unspecified; Z88.6 Allergy status to analgesic agent; Z91.041 Radiographic dye allergy status; Z79.899 Other long term (current) drug therapy; Z79.4 Long term (current) use of insulin; W18.39XA Other fall on same level, initial encounter; Y93.89 Activity, other specified; Y92.89 Other specified places as the place of occurrence of the external cause; Y99.8 Other external cause status

== ENCOUNTER → 2020-04-19 | Outpatient (CLI) | payer MEDICARE ==
[2020-04-19 14:58] LABS: BASO % 0.4 % (0.0-1.0); EOS # 0.2 10*3/uL (0.0-0.4); EOS % 2.8 % (1.0-4.0); HEMATOCRIT 42.8 % (37.0-47.0); LYMPH # 1.7 10*3/uL (1.3-4.4); LYMPH % 20.6 % (27.0-41.0); MEAN CELL VOLUME 91.6 fl (81.0-99.0); MEAN CORPUSCULAR HGB 30.2 pg (27.0-31.0); MEAN CORPUSCULAR HGB CONC 32.9 g/dl (33.0-37.0); MEAN PLATELET VOLUME 9.9 fl (9.6-12.3); MONO # 0.5 10*3/uL (0.1-1.0); MONO % 6.5 % (3.0-9.0); NEUT # 5.8 10*3/uL (2.3-7.9); NEUT % 69.5 % (47.0-73.0); PLATELET COUNT AUTOMATED 187 10*3/uL (130-400); RED BLOOD COUNT 4.67 10*6/uL (4.10-5.10); RED CELL DISTRI WIDTH 13.2 % (0-14.5); WHITE BLOOD COUNT 8.4 10*3/uL (4.8-10.8)
[2020-04-19 15:25] LABS: CREATININE 1.11 mg/dL (0.55-1.02); TOTAL PROTEIN 8.1 gm/dL (6.4-8.2)
[2020-04-19 15:33] LABS: THYROID STIM HORMONE (HS) 1.09 uIU/ml (0.358-4.75)
== END | disposition home or self-care (01) ==
LOC: LAB 14:33 → US 15:00
PROVIDERS: ATTEND Nurse Practitioner Family
DX: N20.0 Calculus of kidney (principal); I10 Essential (primary) hypertension; E11.65 Type 2 diabetes mellitus with hyperglycemia; R10.9 Unspecified abdominal pain; E55.9 Vitamin D deficiency, unspecified

== ENCOUNTER → 2020-06-09 | Outpatient (CLI) | payer MEDICARE ==
[2020-06-09 13:09] LABS: BASO # 0.1 10*3/uL (0.0-0.1); BASO % 0.7 % (0.0-1.0); EOS # 0.4 10*3/uL (0.0-0.4); EOS % 5.3 % (1.0-4.0); HEMATOCRIT 41.7 % (37.0-47.0); LYMPH # 1.5 10*3/uL (1.3-4.4); LYMPH % 19.7 % (27.0-41.0); MEAN CELL VOLUME 90.7 fl (81.0-99.0); MEAN CORPUSCULAR HGB 30.2 pg (27.0-31.0); MEAN CORPUSCULAR HGB CONC 33.3 g/dl (33.0-37.0); MEAN PLATELET VOLUME 10.4 fl (9.6-12.3); MONO # 0.4 10*3/uL (0.1-1.0); MONO % 5.5 % (3.0-9.0); NEUT # 5.2 10*3/uL (2.3-7.9); NEUT % 68.5 % (47.0-73.0); PLATELET COUNT AUTOMATED 167 10*3/uL (130-400); RED CELL DISTRI WIDTH 12.1 % (0-14.5); WHITE BLOOD COUNT 7.5 10*3/uL (4.8-10.8)
[2020-06-09 13:20] LABS: ALBUMIN 3.8 gm/dl (3.1-4.5); CREATININE 1.12 mg/dL (0.55-1.02); POTASSIUM 4.3 mmol/L (3.5-5.1)
[2020-06-09 13:25] LABS: BILIRUBIN Negative (Negative); BLOOD 1+ (Negative); CLARITY Cloudy (Clear); COLOR Yellow (Yellow); GLUCOSE Negative (Negative); KETONE Trace (Negative); LEUKO ESTERASE 2+ (Negative); NITRITE Negative (Negative); SPECIFIC GRAVITY 1.025 (1.001-1.030)
[2020-06-09 13:34] LABS: BACTERIA 4+; EPITHELIAL CELLS 16-20; WBC 21-30 wbc/hpf (0-5)
[2020-06-09 14:56] LABS: VITAMIN D, 25-HYDROXY 12.3 ng/mL (30-100)
[2020-06-09 14:57] LABS: FERRITIN 135.5 ng/mL (10.0-291.0); PTH INTACT 42.1 pg/mL (18.5-88.0)
== END | disposition home or self-care (01) ==
LOC: LAB 12:43
PROVIDERS: ATTEND Internal Medicine Nephrology
DX: N18.30 Chronic kidney disease, stage 3 unspecified (principal); N25.81 Secondary hyperparathyroidism of renal origin; D63.1 Anemia in chronic kidney disease; Z79.899 Other long term (current) drug therapy

== ENCOUNTER → 2020-08-31 | Outpatient (CLI) | payer MEDICARE ==
[2020-08-31 10:51] LABS: HEMATOCRIT 42.9 % (37.0-47.0); MEAN CELL VOLUME 91.7 fl (81.0-99.0); MEAN CORPUSCULAR HGB 30.6 pg (27.0-31.0); MEAN CORPUSCULAR HGB CONC 33.3 g/dl (33.0-37.0); MEAN PLATELET VOLUME 10.6 fl (9.6-12.3); RED BLOOD COUNT 4.68 10*6/uL (4.10-5.10); WHITE BLOOD COUNT 6.8 10*3/uL (4.8-10.8)
[2020-08-31 11:23] LABS: ALBUMIN 3.9 gm/dl (3.1-4.5); CREATININE 1.09 mg/dL (0.55-1.02); FREE T4 1.07 ng/dl (0.76-1.46); POTASSIUM 4.3 mmol/L (3.5-5.1); TOTAL PROTEIN 7.8 gm/dL (6.4-8.2)
[2020-08-31 11:28] LABS: THYROID STIM HORMONE (HS) 1.26 uIU/ml (0.358-4.75)
[2020-08-31 11:43] LABS: VITAMIN D, 25-HYDROXY 16.6 ng/mL (30-100)
== END | disposition home or self-care (01) ==
LOC: LAB 10:24
PROVIDERS: ATTEND Nurse Practitioner Family
DX: E11.9 Type 2 diabetes mellitus without complications (principal); I10 Essential (primary) hypertension; E78.00 Pure hypercholesterolemia, unspecified; R53.83 Other fatigue; E55.9 Vitamin D deficiency, unspecified

== ENCOUNTER → 2021-07-13 | Outpatient (CLI) | payer MEDICARE ==
[2021-07-13 11:07] LABS: BASO % 0.3 % (0.0-1.0); EOS # 0.3 10*3/uL (0.0-0.4); EOS % 3.5 % (1.0-4.0); HEMATOCRIT 41.9 % (37.0-47.0); LYMPH # 1.3 10*3/uL (1.3-4.4); LYMPH % 17.9 % (27.0-41.0); MEAN CELL VOLUME 89.7 fl (81.0-99.0); MEAN CORPUSCULAR HGB 30.4 pg (27.0-31.0); MEAN CORPUSCULAR HGB CONC 33.9 g/dl (33.0-37.0); MEAN PLATELET VOLUME 10.1 fl (9.6-12.3); MONO # 0.6 10*3/uL (0.1-1.0); MONO % 8.2 % (3.0-9.0); NEUT # 5.1 10*3/uL (2.3-7.9); NEUT % 69.8 % (47.0-73.0); PLATELET COUNT AUTOMATED 141 10*3/uL (130-400); RED BLOOD COUNT 4.67 10*6/uL (4.10-5.10); RED CELL DISTRI WIDTH 13.3 % (0-14.5); WHITE BLOOD COUNT 7.2 10*3/uL (4.8-10.8)
[2021-07-13 11:09] LABS: BILIRUBIN Negative (Negative); BLOOD Negative (Negative); CLARITY Clear (Clear); COLOR Yellow (Yellow); GLUCOSE Negative (Negative); KETONE Negative (Negative); LEUKO ESTERASE 2+ (Negative); NITRITE Negative (Negative); SPECIFIC GRAVITY 1.015 (1.001-1.030)
[2021-07-13 11:16] LABS: BACTERIA TRACE; WBC 31-40 wbc/hpf (0-5)
[2021-07-13 11:17] LABS: EPITHELIAL CELLS 16-20
[2021-07-13 11:18] LABS: URINE CREATININE RANDOM 60.3 mg/dL
[2021-07-13 11:57] LABS: CREATININE 1.16 mg/dL (0.55-1.02); POTASSIUM 4.4 mmol/L (3.5-5.1)
[2021-07-13 12:03] LABS: FERRITIN 96.3 ng/mL (10.0-291.0); VITAMIN D, 25-HYDROXY 12.1 ng/mL (30-100)
== END | disposition home or self-care (01) ==
LOC: LAB 10:35
PROVIDERS: ATTEND Internal Medicine Nephrology
DX: N18.30 Chronic kidney disease, stage 3 unspecified (principal); N25.81 Secondary hyperparathyroidism of renal origin; D63.1 Anemia in chronic kidney disease; Z79.899 Other long term (current) drug therapy

== ENCOUNTER → 2021-07-18 | Outpatient (CLI) | payer MEDICARE | END | disposition home or self-care (01) | LOC: RAD 00:27 | PROVIDERS: ATTEND Internal Medicine | DX: M81.0 Age-related osteoporosis without current pathological fracture (principal); Z78.0 Asymptomatic menopausal state ==

== ENCOUNTER 2021-10-23 20:14 | Emergency (ER) | payer MEDICARE ==
[~2021-10-23] VITALS: Wt 79.8 kg
[~2021-10-23 20:14] MED LIST changes: +ALENDRONATE SOD70 M1 PO; +APRESOLINE25 MG PO; +ATORVASTATIN CA40 M1 PO; +HYDROCHLOROTH12.5 M2 PO; +LOSARTAN POTASS50 M1 PO; +Lovenox60 MG/0.6 PO; +METOPROLOL SUCC25 M2 PO; +OYSTER SHELL 51 EACH PO; +REMERON15 M2 PO
[2021-10-23 20:39] LABS: BASO % 0.5 % (0.0-1.0); EOS # 0.3 10*3/uL (0.0-0.4); EOS % 3.3 % (1.0-4.0); LYMPH # 1.5 10*3/uL (1.3-4.4); LYMPH % 17.6 % (27.0-41.0); MEAN CELL VOLUME 93.3 fl (81.0-99.0); MEAN CORPUSCULAR HGB 30.9 pg (27.0-31.0); MEAN CORPUSCULAR HGB CONC 33.1 g/dl (33.0-37.0); MEAN PLATELET VOLUME 10.1 fl (9.6-12.3); MONO # 0.8 10*3/uL (0.1-1.0); MONO % 9.1 % (3.0-9.0); NEUT # 5.9 10*3/uL (2.3-7.9); NEUT % 69.1 % (47.0-73.0); PLATELET COUNT AUTOMATED 158 10*3/uL (130-400); RED CELL DISTRI WIDTH 13.6 % (0-14.5); WHITE BLOOD COUNT 8.5 10*3/uL (4.8-10.8)
[2021-10-23 20:50] LABS: ACT PARTIAL THROMBO TIME 27.8 SECONDS (20.0-32.1)
[2021-10-23 20:58] LABS: CREATININE 1.45 mg/dL (0.55-1.02); POTASSIUM 4.4 mmol/L (3.5-5.1); TOTAL PROTEIN 7.4 gm/dL (6.4-8.2)
[2021-10-24 06:20] VITALS: BP 129/57
== END 2021-10-24 06:40 | disposition short-term general hospital (02) ==
LOC: ED 20:14
PROVIDERS: Emergency Medicine
DX: I24.9 Acute ischemic heart disease, unspecified (principal); I10 Essential (primary) hypertension; E11.9 Type 2 diabetes mellitus without complications; K21.9 Gastro-esophageal reflux disease without esophagitis; E78.00 Pure hypercholesterolemia, unspecified; Z91.041 Radiographic dye allergy status; Z88.8 Allergy status to other drugs, medicaments and biological substances; Z79.899 Other long term (current) drug therapy; Z90.49 Acquired absence of other specified parts of digestive tract; Z90.710 Acquired absence of both cervix and uterus; Z98.890 Other specified postprocedural states; Z87.891 Personal history of nicotine dependence

== ENCOUNTER 2021-12-19 20:43 | Emergency (ER) | payer MEDICARE ==
[2021-12-19 21:04] VITALS: BP 179/85
[2021-12-19 22:02] LABS: BASO % 0.6 % (0.0-1.0); EOS # 0.5 10*3/uL (0.0-0.4); EOS % 6.6 % (1.0-4.0); HEMATOCRIT 34.9 % (37.0-47.0); LYMPH # 1.4 10*3/uL (1.3-4.4); LYMPH % 19.2 % (27.0-41.0); MEAN CELL VOLUME 94.8 fl (81.0-99.0); MEAN CORPUSCULAR HGB 29.9 pg (27.0-31.0); MEAN CORPUSCULAR HGB CONC 31.5 g/dl (33.0-37.0); MEAN PLATELET VOLUME 9.8 fl (9.6-12.3); MONO # 0.4 10*3/uL (0.1-1.0); MONO % 5.4 % (3.0-9.0); NEUT # 4.8 10*3/uL (2.3-7.9); NEUT % 67.9 % (47.0-73.0); PLATELET COUNT AUTOMATED 182 10*3/uL (130-400); RED BLOOD COUNT 3.68 10*6/uL (4.10-5.10); RED CELL DISTRI WIDTH 14.1 % (0-14.5)
[2021-12-19 22:13] LABS: ACT PARTIAL THROMBO TIME 29.6 SECONDS (20.0-32.1); INTERNATIONAL NORM RATIO 1.1 (2.0-3.5)
[2021-12-19 22:20] LABS: CREATININE 1.26 mg/dL (0.55-1.02); POTASSIUM 4.3 mmol/L (3.5-5.1)
[2021-12-19] MEDS ORDERED: DULCOLAX STOOL100 M1 PO (22:25)
[2021-12-19] MEDS ORDERED: NATURE'S BLEND F1 MG PO (22:26)
[2021-12-19] MEDS ORDERED: Lopressor25 MG PO (22:27)
[2021-12-19] MEDS ORDERED: ELIQUIS5 M1 PO (22:28)
[2021-12-19] MEDS ORDERED: ASPIRIN ADULT L81 M2 PO (22:28)
[2021-12-19] MEDS ORDERED: HYDROCODONE-AC1 EAC1 PO (22:34)
== END 2021-12-20 02:05 | disposition home or self-care (01) ==
LOC: ED 20:43
PROVIDERS: Emergency Medicine
DX: R20.0 Anesthesia of skin (principal); R20.2 Paresthesia of skin; K21.9 Gastro-esophageal reflux disease without esophagitis; I12.9 Hypertensive chronic kidney disease with stage 1 through stage 4 chronic kidney disease, or unspecified chronic kidney disease; E11.22 Type 2 diabetes mellitus with diabetic chronic kidney disease; N18.30 Chronic kidney disease, stage 3 unspecified; Z91.041 Radiographic dye allergy status; Z88.8 Allergy status to other drugs, medicaments and biological substances; Z79.899 Other long term (current) drug therapy; Z79.82 Long term (current) use of aspirin; Z90.49 Acquired absence of other specified parts of digestive tract; Z90.710 Acquired absence of both cervix and uterus; Z98.890 Other specified postprocedural states; Z87.891 Personal history of nicotine dependence

== ENCOUNTER → 2022-01-05 | Outpatient (CLI) | payer MEDICARE ==
[~2022-01-05] MED LIST changes: +ASPIRIN ADULT L81 M2 PO; +DULCOLAX STOOL100 M1 PO; +ELIQUIS5 M1 PO; +Lopressor25 MG PO; +NATURE'S BLEND F1 MG PO
[2022-01-05 10:39] LABS: BASO % 0.5 % (0.0-1.0); EOS # 0.3 10*3/uL (0.0-0.4); HEMATOCRIT 37.3 % (37.0-47.0); LYMPH # 1.2 10*3/uL (1.3-4.4); LYMPH % 14.1 % (27.0-41.0); MEAN CELL VOLUME 91.9 fl (81.0-99.0); MEAN CORPUSCULAR HGB 29.1 pg (27.0-31.0); MEAN CORPUSCULAR HGB CONC 31.6 g/dl (33.0-37.0); MEAN PLATELET VOLUME 9.4 fl (9.6-12.3); MONO # 0.4 10*3/uL (0.1-1.0); MONO % 4.7 % (3.0-9.0); NEUT # 6.4 10*3/uL (2.3-7.9); NEUT % 76.3 % (47.0-73.0); PLATELET COUNT AUTOMATED 230 10*3/uL (130-400); RED BLOOD COUNT 4.06 10*6/uL (4.10-5.10); RED CELL DISTRI WIDTH 14.3 % (0-14.5); WHITE BLOOD COUNT 8.4 10*3/uL (4.8-10.8)
[2022-01-05 10:45] LABS: BILIRUBIN Negative (Negative); BLOOD Negative (Negative); CLARITY Clear (Clear); COLOR Yellow (Yellow); GLUCOSE Negative (Negative); KETONE Negative (Negative); LEUKO ESTERASE Trace (Negative); NITRITE Negative (Negative); PH 7.5 (4.5-8.0); SPECIFIC GRAVITY 1.015 (1.001-1.030)
[2022-01-05 10:53] LABS: URINE CREATININE RANDOM 54.6 mg/dL
[2022-01-05 10:53] LABS: CREATININE 1.2 mg/dL (0.55-1.02); POTASSIUM 4.4 mmol/L (3.5-5.1)
[2022-01-05 10:58] LABS: BACTERIA 2+; EPITHELIAL CELLS 21-30
[2022-01-05 11:42] LABS: FERRITIN 121.3 ng/mL (10.0-291.0); VITAMIN D, 25-HYDROXY 20.6 ng/mL (30-100)
== END | disposition home or self-care (01) ==
LOC: LAB 10:13
PROVIDERS: ATTEND Internal Medicine Nephrology
DX: I12.9 Hypertensive chronic kidney disease with stage 1 through stage 4 chronic kidney disease, or unspecified chronic kidney disease (principal); N18.30 Chronic kidney disease, stage 3 unspecified; N25.81 Secondary hyperparathyroidism of renal origin; D63.1 Anemia in chronic kidney disease; Z79.899 Other long term (current) drug therapy

== ENCOUNTER 2022-03-20 17:53 | Emergency (ER) | payer MEDICARE ==
[~2022-03-20] VITALS: Ht 165.1 cm; Wt 77.1 kg
[2022-03-20 18:33] VITALS: BP 168/91
[2022-03-20] MEDS ORDERED: PREDNISONE20 M1 PO (22:22)
[2022-03-20] MEDS ORDERED: ONDANSETRON4 MG SL (22:29)
== END 2022-03-20 23:14 | disposition home or self-care (01) ==
LOC: ED 17:53
DX: B34.9 Viral infection, unspecified (principal); Z20.822 Contact with and (suspected) exposure to COVID-19; Z91.041 Radiographic dye allergy status; Z88.8 Allergy status to other drugs, medicaments and biological substances; Z79.899 Other long term (current) drug therapy; Z79.82 Long term (current) use of aspirin; Z90.49 Acquired absence of other specified parts of digestive tract; Z90.710 Acquired absence of both cervix and uterus; Z98.890 Other specified postprocedural states; Z87.891 Personal history of nicotine dependence

== ENCOUNTER 2022-06-02 21:31 | Emergency (ER) | payer MEDICARE ==
[~2022-06-02] VITALS: Ht 157.4 cm; Wt 75.3 kg
[~2022-06-02 21:31] MED LIST changes: +ALBUTEROL2.5 MG/0.5 NEB; +BENZONATATE100 M1 PO; +DOXYCYCLINE MO100 MG PO; +IPRATROPIU0.2 MG/1 M NEB; +LASIX20 MG PO; +LOPRESSOR50 M1 PO; +ONDANSETRON4 MG SL; +PREDNISONE20 M1 PO
[2022-06-02 22:08] LABS: BASO % 0.4 % (0.0-1.0); EOS # 0.2 10*3/uL (0.0-0.4); EOS % 2.1 % (1.0-4.0); HEMATOCRIT 37.9 % (37.0-47.0); LYMPH # 1.2 10*3/uL (1.3-4.4); LYMPH % 13.6 % (27.0-41.0); MEAN CELL VOLUME 87.9 fl (81.0-99.0); MEAN PLATELET VOLUME 10.4 fl (9.6-12.3); MONO # 0.9 10*3/uL (0.1-1.0); MONO % 9.9 % (3.0-9.0); NEUT # 6.7 10*3/uL (2.3-7.9); NEUT % 73.6 % (47.0-73.0); PLATELET COUNT AUTOMATED 139 10*3/uL (130-400); RED BLOOD COUNT 4.31 10*6/uL (4.10-5.10); RED CELL DISTRI WIDTH 14.7 % (0-14.5); WHITE BLOOD COUNT 9.1 10*3/uL (4.8-10.8)
[2022-06-02 22:23] LABS: POTASSIUM 3.8 mmol/L (3.4-5.1); TOTAL PROTEIN 7.5 gm/dL (6.0-8.0)
[2022-06-03] VITALS: BP 168/75
== END 2022-06-03 00:38 | disposition home or self-care (01) ==
LOC: ED 21:31
PROVIDERS: Internal Medicine
DX: K20.80 Other esophagitis without bleeding (principal); R77.8 Other specified abnormalities of plasma proteins; E44.1 Mild protein-calorie malnutrition; R07.89 Other chest pain; E11.22 Type 2 diabetes mellitus with diabetic chronic kidney disease; I12.9 Hypertensive chronic kidney disease with stage 1 through stage 4 chronic kidney disease, or unspecified chronic kidney disease; N18.32 Chronic kidney disease, stage 3b; K21.9 Gastro-esophageal reflux disease without esophagitis; Z91.041 Radiographic dye allergy status; Z88.5 Allergy status to narcotic agent; Z90.49 Acquired absence of other specified parts of digestive tract; Z90.710 Acquired absence of both cervix and uterus; Z87.891 Personal history of nicotine dependence; Z68.30 Body mass index [BMI] 30.0-30.9, adult

== ENCOUNTER → 2022-08-16 | Outpatient (CLI) | payer MEDICARE ==
[2022-08-16 12:25] LABS: BASO # 0.1 10*3/uL (0.0-0.1); BASO % 0.7 % (0.0-1.0); EOS # 0.6 10*3/uL (0.0-0.4); EOS % 8.5 % (1.0-4.0); HEMATOCRIT 42.5 % (37.0-47.0); LYMPH # 1.6 10*3/uL (1.3-4.4); LYMPH % 21.2 % (27.0-41.0); MEAN CORPUSCULAR HGB 30.3 pg (27.0-31.0); MEAN CORPUSCULAR HGB CONC 32.9 g/dl (33.0-37.0); MEAN PLATELET VOLUME 10.4 fl (9.6-12.3); MONO # 0.5 10*3/uL (0.1-1.0); MONO % 6.7 % (3.0-9.0); NEUT # 4.7 10*3/uL (2.3-7.9); NEUT % 62.8 % (47.0-73.0); PLATELET COUNT AUTOMATED 164 10*3/uL (130-400); RED BLOOD COUNT 4.62 10*6/uL (4.10-5.10); RED CELL DISTRI WIDTH 14.8 % (0-14.5); WHITE BLOOD COUNT 7.4 10*3/uL (4.8-10.8)
[2022-08-16 12:57] LABS: VITAMIN D, 25-HYDROXY 24.5 ng/mL (30-100)
[2022-08-16 13:59] LABS: FREE T4 0.95 ng/dl (0.89-1.76); THYROID STIM HORMONE (HS) 16.941 uIU/ml (0.550-4.780); TOTAL PROTEIN 7.8 gm/dL (6.0-8.0)
== END | disposition home or self-care (01) ==
LOC: LAB 11:45
PROVIDERS: ATTEND Internal Medicine
DX: J98.11 Atelectasis (principal); I51.7 Cardiomegaly; E11.65 Type 2 diabetes mellitus with hyperglycemia; I10 Essential (primary) hypertension; E78.2 Mixed hyperlipidemia; E03.9 Hypothyroidism, unspecified; R07.9 Chest pain, unspecified

== ENCOUNTER 2022-08-19 16:24 | Emergency (ER) | payer MEDICARE ==
[~2022-08-19] VITALS: Ht 165.1 cm; Wt 79.8 kg
[2022-08-19 17:24] VITALS: BP 174/109
[2022-08-19 17:43] LABS: BILIRUBIN Negative (Negative); BLOOD 2+ (Negative); CLARITY Clear (Clear); COLOR Yellow (Yellow); GLUCOSE Negative (Negative); KETONE Negative (Negative); LEUKO ESTERASE Trace (Negative); NITRITE Negative (Negative)
[2022-08-19 17:43] LABS: BASO % 0.4 % (0.0-1.0); EOS # 0.2 10*3/uL (0.0-0.4); HEMATOCRIT 46.1 % (37.0-47.0); LYMPH # 1.4 10*3/uL (1.3-4.4); LYMPH % 13.4 % (27.0-41.0); MEAN CORPUSCULAR HGB 30.1 pg (27.0-31.0); MEAN CORPUSCULAR HGB CONC 33.8 g/dl (33.0-37.0); MEAN PLATELET VOLUME 10.2 fl (9.6-12.3); MONO # 0.5 10*3/uL (0.1-1.0); MONO % 4.9 % (3.0-9.0); NEUT # 8.2 10*3/uL (2.3-7.9); NEUT % 78.9 % (47.0-73.0); PLATELET COUNT AUTOMATED 176 10*3/uL (130-400); RED BLOOD COUNT 5.18 10*6/uL (4.10-5.10); RED CELL DISTRI WIDTH 14.4 % (0-14.5); WHITE BLOOD COUNT 10.4 10*3/uL (4.8-10.8)
[2022-08-19 17:59] LABS: BACTERIA 1+; RBC 16-20 rbc/hpf (0-2)
[2022-08-19 18:06] LABS: TOTAL PROTEIN 8.6 gm/dL (6.0-8.0)
[2022-08-19] MEDS ORDERED: CIPRO500 MG PO ×2 (18:17)
[2022-08-21] MEDS ORDERED: ZOSYN 3.373.375 GM/1 IV (05:15)
[2022-08-21] MEDS ORDERED: TYLENOL EXTRA500 MG PO (05:15)
[2022-08-21] MEDS ORDERED: DILAUDID IV (05:17)
[2022-08-22] MEDS ORDERED: AMOX-CLAV 875-1 EACH PO (10:08)
== END 2022-08-19 19:50 | disposition home or self-care (01) ==
LOC: ED 16:24
PROVIDERS: Emergency Medicine
DX: N39.0 Urinary tract infection, site not specified (principal); I10 Essential (primary) hypertension; E11.9 Type 2 diabetes mellitus without complications; K21.9 Gastro-esophageal reflux disease without esophagitis; M19.90 Unspecified osteoarthritis, unspecified site; E78.00 Pure hypercholesterolemia, unspecified; Z91.041 Radiographic dye allergy status; Z88.5 Allergy status to narcotic agent; Z88.8 Allergy status to other drugs, medicaments and biological substances; Z98.890 Other specified postprocedural states; Z90.49 Acquired absence of other specified parts of digestive tract; Z90.710 Acquired absence of both cervix and uterus; Z87.891 Personal history of nicotine dependence

== ENCOUNTER 2022-08-28 19:40 | Emergency (ER) | payer MEDICARE ==
[~2022-08-28] VITALS: Ht 165.1 cm; Wt 76.2 kg
[~2022-08-28 19:40] MED LIST changes: +AMOX-CLAV 875-1 EACH PO; +DILAUDID IV; +TYLENOL EXTRA500 MG PO; +ZOSYN 3.373.375 GM/1 IV
[2022-08-28 20:00] VITALS: BP 201/120
[2022-08-28 20:34] LABS: BASO % 0.3 % (0.0-1.0); EOS # 0.2 10*3/uL (0.0-0.4); EOS % 1.6 % (1.0-4.0); HEMATOCRIT 43.8 % (37.0-47.0); LYMPH # 1.9 10*3/uL (1.3-4.4); LYMPH % 19.3 % (27.0-41.0); MEAN CELL VOLUME 88.5 fl (81.0-99.0); MEAN CORPUSCULAR HGB 30.3 pg (27.0-31.0); MEAN CORPUSCULAR HGB CONC 34.2 g/dl (33.0-37.0); MEAN PLATELET VOLUME 9.8 fl (9.6-12.3); MONO # 0.7 10*3/uL (0.1-1.0); NEUT % 71.6 % (47.0-73.0); PLATELET COUNT AUTOMATED 170 10*3/uL (130-400); RED BLOOD COUNT 4.95 10*6/uL (4.10-5.10); RED CELL DISTRI WIDTH 14.7 % (0-14.5); WHITE BLOOD COUNT 9.8 10*3/uL (4.8-10.8)
[2022-08-28 20:58] LABS: POTASSIUM 3.7 mmol/L (3.4-5.1); TOTAL PROTEIN 7.7 gm/dL (6.0-8.0)
[2022-08-28 21:20] LABS: BILIRUBIN Negative (Negative); BLOOD 1+ (Negative); CLARITY Clear (Clear); COLOR Yellow (Yellow); GLUCOSE Negative (Negative); KETONE Negative (Negative); LEUKO ESTERASE 1+ (Negative); NITRITE Negative (Negative); PH 7.5 (4.5-8.0); SPECIFIC GRAVITY 1.015 (1.001-1.030); UROBILINOGEN 0.2 E.U./dl (0.0-1.0)
[2022-08-28] MEDS ORDERED: FLOMAX0.4 MG PO (21:26)
[2022-08-28] MEDS ORDERED: Percocet 325 MG1 TAB PO (21:27)
[2022-08-28] MEDS ORDERED: OMNICEF300 MG PO (21:27)
[2022-08-28 21:32] LABS: BACTERIA 1+; WBC 16-20 wbc/hpf (0-5)
== END 2022-08-28 22:14 | disposition home or self-care (01) ==
LOC: ED 19:40
PROVIDERS: Emergency Medicine
DX: N39.0 Urinary tract infection, site not specified (principal); N12 Tubulo-interstitial nephritis, not specified as acute or chronic; Z91.041 Radiographic dye allergy status; Z88.5 Allergy status to narcotic agent; Z90.49 Acquired absence of other specified parts of digestive tract; Z90.710 Acquired absence of both cervix and uterus; Z98.890 Other specified postprocedural states; Z98.49 Cataract extraction status, unspecified eye; Z87.891 Personal history of nicotine dependence

== ENCOUNTER 2022-09-13 10:15 | Emergency (ER) | payer MEDICARE ==
[~2022-09-13] VITALS: Ht 165.1 cm; Wt 76.2 kg
[~2022-09-13 10:15] MED LIST changes: +FLOMAX0.4 MG PO; +OMNICEF300 MG PO; +Percocet 325 MG1 TAB PO
[2022-09-13 10:29] VITALS: BP 185/92
[2022-09-13] MEDS ORDERED: PREDNISONE50 MG PO (13:11)
[2022-09-13] MEDS ORDERED: CYCLOBENZAPRINE10 MG PO (13:11)
== END 2022-09-13 13:15 | disposition home or self-care (01) ==
LOC: ED 10:15
DX: M54.31 Sciatica, right side (principal); I10 Essential (primary) hypertension; E11.9 Type 2 diabetes mellitus without complications; K21.9 Gastro-esophageal reflux disease without esophagitis; M19.90 Unspecified osteoarthritis, unspecified site; E78.00 Pure hypercholesterolemia, unspecified; Z91.041 Radiographic dye allergy status; Z88.5 Allergy status to narcotic agent; Z88.8 Allergy status to other drugs, medicaments and biological substances; Z90.49 Acquired absence of other specified parts of digestive tract; Z90.710 Acquired absence of both cervix and uterus; Z98.890 Other specified postprocedural states; Z87.891 Personal history of nicotine dependence

== ENCOUNTER → 2022-09-25 | Outpatient (CLI) | payer MEDICARE ==
[~2022-09-25] MED LIST changes: +PREDNISONE50 MG PO
== END | disposition home or self-care (01) ==
LOC: LAB 13:59
PROVIDERS: ATTEND Internal Medicine
DX: E11.65 Type 2 diabetes mellitus with hyperglycemia (principal); I10 Essential (primary) hypertension; E78.2 Mixed hyperlipidemia

== ENCOUNTER → 2022-10-31 | Outpatient (CLI) | payer MEDICARE | END | disposition home or self-care (01) | LOC: CARD 01:25 | PROVIDERS: ATTEND Internal Medicine Cardiovascular Disease | DX: I20.8 Other forms of angina pectoris (principal) ==

== ENCOUNTER → 2023-01-23 | Outpatient (CLI) | payer MEDICARE ==
[2023-01-23 12:33] LABS: BASO % 0.6 % (0.0-1.0); EOS # 0.2 10*3/uL (0.0-0.4); EOS % 2.8 % (1.0-4.0); HEMATOCRIT 39.9 % (37.0-47.0); LYMPH # 1.2 10*3/uL (1.3-4.4); LYMPH % 17.4 % (27.0-41.0); MEAN CELL VOLUME 98.3 fl (81.0-99.0); MEAN CORPUSCULAR HGB 32.5 pg (27.0-31.0); MEAN CORPUSCULAR HGB CONC 33.1 g/dl (33.0-37.0); MEAN PLATELET VOLUME 9.9 fl (9.6-12.3); MONO # 0.6 10*3/uL (0.1-1.0); MONO % 8.3 % (3.0-9.0); NEUT % 70.6 % (47.0-73.0); PLATELET COUNT AUTOMATED 135 10*3/uL (130-400); RED BLOOD COUNT 4.06 10*6/uL (4.10-5.10); RED CELL DISTRI WIDTH 12.5 % (0-14.5); WHITE BLOOD COUNT 7.1 10*3/uL (4.8-10.8)
[2023-01-23 12:34] LABS: BILIRUBIN Negative (Negative); BLOOD Trace-Lysed (Negative); CLARITY Clear (Clear); COLOR Yellow (Yellow); GLUCOSE Negative (Negative); KETONE Trace (Negative); LEUKO ESTERASE 2+ (Negative); NITRITE Negative (Negative); SPECIFIC GRAVITY >= 1.030 (1.001-1.030)
[2023-01-23 12:40] LABS: URINE CREATININE RANDOM 154.25 mg/dL
[2023-01-23 13:01] LABS: BACTERIA 3+; MUCOUS 2+; WBC 16-20 wbc/hpf (0-5)
[2023-01-23 13:18] LABS: BUN 20 mg/dl (9-23); CHLORIDE 109 mmol/L (98-107); POTASSIUM 4.3 mmol/L (3.4-5.1)
[2023-01-23 13:22] LABS: VITAMIN D, 25-HYDROXY 28.5 ng/mL (30-100)
== END | disposition home or self-care (01) ==
LOC: LAB 12:12
PROVIDERS: ATTEND Internal Medicine Nephrology
DX: N25.81 Secondary hyperparathyroidism of renal origin (principal); D63.1 Anemia in chronic kidney disease; N18.30 Chronic kidney disease, stage 3 unspecified

== ENCOUNTER 2023-02-10 17:03 | Emergency (ER) | payer MEDICARE ==
[~2023-02-10] VITALS: Wt 81.6 kg
[2023-02-10 17:18] VITALS: BP 198/84
[2023-02-10] MEDS ORDERED: TRAMADOL HCL50 MG PO (18:16)
== END 2023-02-10 18:35 | disposition home or self-care (01) ==
LOC: ED 17:03
DX: S09.90XA Unspecified injury of head, initial encounter (principal); M79.604 Pain in right leg; I12.9 Hypertensive chronic kidney disease with stage 1 through stage 4 chronic kidney disease, or unspecified chronic kidney disease; E11.22 Type 2 diabetes mellitus with diabetic chronic kidney disease; N18.9 Chronic kidney disease, unspecified; K21.9 Gastro-esophageal reflux disease without esophagitis; M19.90 Unspecified osteoarthritis, unspecified site; E78.00 Pure hypercholesterolemia, unspecified; Z91.041 Radiographic dye allergy status; Z88.5 Allergy status to narcotic agent; Z88.8 Allergy status to other drugs, medicaments and biological substances; Z90.49 Acquired absence of other specified parts of digestive tract; Z90.710 Acquired absence of both cervix and uterus; Z98.890 Other specified postprocedural states; Z87.891 Personal history of nicotine dependence; W01.198A Fall on same level from slipping, tripping and stumbling with subsequent striking against other object, initial encounter; Y93.89 Activity, other specified; Y92.89 Other specified places as the place of occurrence of the external cause; Y99.8 Other external cause status

== ENCOUNTER 2023-02-22 18:18 | Emergency (ER) | payer MEDICARE ==
[~2023-02-22] VITALS: Ht 165.1 cm; Wt 83.5 kg
[2023-02-22] MEDS ORDERED: COREG12.5 M1 PO (19:23)
[2023-02-22 20:07] LABS: BASO % 0.4 % (0.0-1.0); EOS # 0.1 10*3/uL (0.0-0.4); EOS % 0.9 % (1.0-4.0); LYMPH # 1.3 10*3/uL (1.3-4.4); LYMPH % 11.6 % (27.0-41.0); MEAN CELL VOLUME 93.2 fl (81.0-99.0); MEAN CORPUSCULAR HGB 32.3 pg (27.0-31.0); MEAN CORPUSCULAR HGB CONC 34.6 g/dl (33.0-37.0); MEAN PLATELET VOLUME 10.1 fl (9.6-12.3); MONO # 0.8 10*3/uL (0.1-1.0); MONO % 6.6 % (3.0-9.0); NEUT # 9.2 10*3/uL (2.3-7.9); NEUT % 80.1 % (47.0-73.0); PLATELET COUNT AUTOMATED 173 10*3/uL (130-400); RED CELL DISTRI WIDTH 11.6 % (0-14.5); WHITE BLOOD COUNT 11.4 10*3/uL (4.8-10.8)
[2023-02-22 20:27] LABS: ALKALINE PHOSPHATASE 88 U/L (46-116); BUN 13 mg/dl (9-23); CHLORIDE 107 mmol/L (98-107); POTASSIUM 4.1 mmol/L (3.4-5.1); SGPT/ALT 10 U/L (5-49); TOTAL PROTEIN 7.4 gm/dL (6.0-8.0)
[2023-02-22 22:00] VITALS: BP 124/76
[2023-02-22] MEDS ORDERED: PREDNISONE20 M1 PO (22:18)
[2023-02-22] MEDS ORDERED: ZITHROMAX250 MG PO (22:18)
== END 2023-02-22 22:31 | disposition home or self-care (01) ==
LOC: ED 18:18
PROVIDERS: Internal Medicine
DX: B34.9 Viral infection, unspecified (principal); R79.82 Elevated C-reactive protein (CRP); E11.22 Type 2 diabetes mellitus with diabetic chronic kidney disease; I12.9 Hypertensive chronic kidney disease with stage 1 through stage 4 chronic kidney disease, or unspecified chronic kidney disease; N18.31 Chronic kidney disease, stage 3a; K21.9 Gastro-esophageal reflux disease without esophagitis; M19.90 Unspecified osteoarthritis, unspecified site; E78.00 Pure hypercholesterolemia, unspecified; Z91.041 Radiographic dye allergy status; Z88.5 Allergy status to narcotic agent; Z88.8 Allergy status to other drugs, medicaments and biological substances; Z90.49 Acquired absence of other specified parts of digestive tract; Z90.710 Acquired absence of both cervix and uterus; Z98.890 Other specified postprocedural states; Z87.891 Personal history of nicotine dependence; Z20.822 Contact with and (suspected) exposure to COVID-19

== ENCOUNTER 2023-05-05 20:00 | Emergency (ER) | payer OTHER ==
[~2023-05-05] VITALS: Ht 165.1 cm; Wt 84.4 kg
[~2023-05-05 20:00] MED LIST changes: +COREG12.5 M1 PO; +ZITHROMAX250 MG PO
[2023-05-05 20:12] VITALS: BP 175/64
[2023-05-05 20:34] LABS: BASO % 0.4 % (0.0-1.0); EOS # 0.2 10*3/uL (0.0-0.4); HEMATOCRIT 37.1 % (37.0-47.0); LYMPH # 1.3 10*3/uL (1.3-4.4); LYMPH % 17.9 % (27.0-41.0); MEAN CELL VOLUME 92.3 fl (81.0-99.0); MEAN CORPUSCULAR HGB 30.3 pg (27.0-31.0); MEAN CORPUSCULAR HGB CONC 32.9 g/dl (33.0-37.0); MEAN PLATELET VOLUME 10.1 fl (9.6-12.3); MONO # 0.5 10*3/uL (0.1-1.0); MONO % 7.4 % (3.0-9.0); NEUT % 71.2 % (47.0-73.0); PLATELET COUNT AUTOMATED 157 10*3/uL (130-400); RED BLOOD COUNT 4.02 10*6/uL (4.10-5.10); RED CELL DISTRI WIDTH 13.1 % (0-14.5)
[2023-05-05 21:04] LABS: ALKALINE PHOSPHATASE 96 U/L (46-116); BUN 12 mg/dl (9-23); CHLORIDE 109 mmol/L (98-107); POTASSIUM 4.1 mmol/L (3.4-5.1); SGPT/ALT 15 U/L (5-49)
== END 2023-05-05 21:43 | disposition home or self-care (01) ==
LOC: ED 20:00
PROVIDERS: Physician Assistant Medical
DX: M25.461 Effusion, right knee (principal); I10 Essential (primary) hypertension; E11.9 Type 2 diabetes mellitus without complications; K21.9 Gastro-esophageal reflux disease without esophagitis; M19.90 Unspecified osteoarthritis, unspecified site; E78.00 Pure hypercholesterolemia, unspecified; Z91.041 Radiographic dye allergy status; Z88.5 Allergy status to narcotic agent; Z88.8 Allergy status to other drugs, medicaments and biological substances; Z90.49 Acquired absence of other specified parts of digestive tract; Z90.710 Acquired absence of both cervix and uterus; Z98.890 Other specified postprocedural states; Z87.891 Personal history of nicotine dependence

== ENCOUNTER → 2023-05-22 | Outpatient (CLI) | payer OTHER | END | disposition home or self-care (01) | LOC: MRI 09:00 | PROVIDERS: ATTEND Orthopaedic Surgery | DX: S83.241A Other tear of medial meniscus, current injury, right knee, initial encounter (principal); M84.361A Stress fracture, right tibia, initial encounter for fracture; M94.261 Chondromalacia, right knee; M25.461 Effusion, right knee; M17.11 Unilateral primary osteoarthritis, right knee; X58.XXXA Exposure to other specified factors, initial encounter; Y93.89 Activity, other specified; Y92.89 Other specified places as the place of occurrence of the external cause; Y99.8 Other external cause status ==

== ENCOUNTER → 2023-07-29 | Outpatient (CLI) | payer OTHER ==
[~2023-07-29] MED LIST changes: +ELIQUIS2.5 M1 PO; +IMDUR SA30 MG PO; +TOPROL XL25 MG PO; +TRAZODONE50 MG PO
[2023-07-29 09:27] LABS: POTASSIUM 4.7 mmol/L (3.4-5.1)
== END | disposition home or self-care (01) ==
LOC: LAB 08:37
PROVIDERS: ATTEND Internal Medicine Nephrology
DX: N18.30 Chronic kidney disease, stage 3 unspecified (principal)

== ENCOUNTER 2023-09-24 19:45 | Emergency (ER) | payer OTHER ==
[~2023-09-24] VITALS: Ht 165.1 cm; Wt 73.5 kg
[2023-09-24 19:57] VITALS: BP 175/59
[2023-09-24 21:13] LABS: BASO % 0.6 % (0.0-1.0); EOS # 0.3 10*3/uL (0.0-0.4); HEMATOCRIT 36.9 % (37.0-47.0); LYMPH # 1.5 10*3/uL (1.3-4.4); LYMPH % 21.2 % (27.0-41.0); MEAN CELL VOLUME 91.6 fl (81.0-99.0); MEAN CORPUSCULAR HGB 30.5 pg (27.0-31.0); MEAN CORPUSCULAR HGB CONC 33.3 g/dl (33.0-37.0); MEAN PLATELET VOLUME 10.7 fl (9.6-12.3); MONO # 0.6 10*3/uL (0.1-1.0); MONO % 8.2 % (3.0-9.0); NEUT # 4.7 10*3/uL (2.3-7.9); NEUT % 65.7 % (47.0-73.0); PLATELET COUNT AUTOMATED 147 10*3/uL (130-400); RED BLOOD COUNT 4.03 10*6/uL (4.10-5.10); RED CELL DISTRI WIDTH 13.5 % (0-14.5); WHITE BLOOD COUNT 7.2 10*3/uL (4.8-10.8)
== END 2023-09-24 22:33 | disposition home or self-care (01) ==
LOC: ED 19:45
PROVIDERS: Nurse Practitioner
DX: N63.10 Unspecified lump in the right breast, unspecified quadrant (principal); R51.9 Headache, unspecified; R53.83 Other fatigue; R63.0 Anorexia; I48.91 Unspecified atrial fibrillation; I25.10 Atherosclerotic heart disease of native coronary artery without angina pectoris; I13.0 Hypertensive heart and chronic kidney disease with heart failure and stage 1 through stage 4 chronic kidney disease, or unspecified chronic kidney disease; E11.22 Type 2 diabetes mellitus with diabetic chronic kidney disease; N18.32 Chronic kidney disease, stage 3b; I50.9 Heart failure, unspecified; I25.2 Old myocardial infarction; Z91.041 Radiographic dye allergy status; Z88.5 Allergy status to narcotic agent; Z88.6 Allergy status to analgesic agent; Z79.899 Other long term (current) drug therapy; Z90.49 Acquired absence of other specified parts of digestive tract; Z90.711 Acquired absence of uterus with remaining cervical stump; Z87.891 Personal history of nicotine dependence

== ENCOUNTER 2023-11-23 18:46 | Emergency (ER) | payer MEDICARE, OTHER ==
[~2023-11-23] VITALS: Ht 165.1 cm; Wt 74.8 kg
[2023-11-23 19:20] VITALS: BP 168/62
[2023-11-23 19:41] LABS: EOS # 0.2 10*3/uL (0.0-0.4); EOS % 7.4 % (1.0-4.0); HEMATOCRIT 29.8 % (37.0-47.0); LYMPH # 0.6 10*3/uL (1.3-4.4); LYMPH % 27.4 % (27.0-41.0); MEAN CORPUSCULAR HGB 30.4 pg (27.0-31.0); MEAN CORPUSCULAR HGB CONC 34.2 g/dl (33.0-37.0); MEAN PLATELET VOLUME 10.7 fl (9.6-12.3); MONO # 0.1 10*3/uL (0.1-1.0); MONO % 3.3 % (3.0-9.0); NEUT # 1.3 10*3/uL (2.3-7.9); NEUT % 61.9 % (47.0-73.0); PLATELET COUNT AUTOMATED 70 10*3/uL (130-400); RED BLOOD COUNT 3.35 10*6/uL (4.10-5.10); RED CELL DISTRI WIDTH 13.3 % (0-14.5); WHITE BLOOD COUNT 2.2 10*3/uL (4.8-10.8)
[2023-11-23 19:51] LABS: ACT PARTIAL THROMBO TIME 27.9 SECONDS (20.0-32.1)
[2023-11-23 20:01] LABS: BUN 14 mg/dl (9-23); CHLORIDE 109 mmol/L (98-107); POTASSIUM 3.8 mmol/L (3.4-5.1)
[2023-11-23 20:10] LABS: BILIRUBIN Negative (Negative); BLOOD Trace-Intact (Negative); CLARITY Clear (Clear); COLOR Yellow (Yellow); GLUCOSE Negative (Negative); KETONE Trace (Negative); LEUKO ESTERASE 1+ (Negative); NITRITE Negative (Negative); PH 5.5 (4.5-8.0)
[2023-11-23 20:19] LABS: BACTERIA 1+
[2023-11-23] MEDS ORDERED: SEPTDS PO (21:17)
[2023-11-23] MEDS ORDERED: MAGNESIUM OXIDE 400 MG TAB PO ONE (21:20)
[2023-11-23] MEDS ORDERED: Sulfamethoxazole/Trimethopri 1 TAB TAB PO ONE (21:20)
== END 2023-11-23 21:36 | disposition home or self-care (01) ==
LOC: ED 18:46
PROVIDERS: Physician Assistant Medical
DX: N39.0 Urinary tract infection, site not specified (principal); R53.1 Weakness; I10 Essential (primary) hypertension; E11.9 Type 2 diabetes mellitus without complications; K21.9 Gastro-esophageal reflux disease without esophagitis; M19.90 Unspecified osteoarthritis, unspecified site; E78.00 Pure hypercholesterolemia, unspecified; Z91.041 Radiographic dye allergy status; Z88.5 Allergy status to narcotic agent; Z90.49 Acquired absence of other specified parts of digestive tract; Z90.710 Acquired absence of both cervix and uterus; Z98.890 Other specified postprocedural states; Z87.891 Personal history of nicotine dependence

== ENCOUNTER → 2024-01-21 | Outpatient (CLI) | payer MEDICARE, OTHER ==
[2024-01-21 12:57] LABS: EOS # 0.1 10*3/uL (0.0-0.4); EOS % 2.7 % (1.0-4.0); LYMPH # 0.8 10*3/uL (1.3-4.4); MEAN CELL VOLUME 96.8 fl (81.0-99.0); MEAN CORPUSCULAR HGB 33.1 pg (27.0-31.0); MEAN CORPUSCULAR HGB CONC 34.2 g/dl (33.0-37.0); MEAN PLATELET VOLUME 11.1 fl (9.6-12.3); MONO # 0.2 10*3/uL (0.1-1.0); MONO % 10.7 % (3.0-9.0); NEUT # 1.1 10*3/uL (2.3-7.9); NEUT % 50.2 % (47.0-73.0); PLATELET COUNT AUTOMATED 93 10*3/uL (130-400); RED BLOOD COUNT 2.48 10*6/uL (4.10-5.10); RED CELL DISTRI WIDTH 18.7 % (0-14.5); WHITE BLOOD COUNT 2.3 10*3/uL (4.8-10.8)
[2024-01-21 13:00] LABS: BILIRUBIN Negative (Negative); BLOOD Negative (Negative); CLARITY Clear (Clear); COLOR Yellow (Yellow); GLUCOSE Negative (Negative); KETONE Negative (Negative); LEUKO ESTERASE 1+ (Negative); NITRITE Negative (Negative)
[2024-01-21 13:10] LABS: URINE CREATININE RANDOM 67.48 mg/dL
[2024-01-21 13:24] LABS: POTASSIUM 4.4 mmol/L (3.4-5.1)
[2024-01-21 13:26] LABS: VITAMIN D, 25-HYDROXY 26.3 ng/mL (30-100)
[2024-01-21 13:39] LABS: WBC 21-30 wbc/hpf (0-5)
== END | disposition home or self-care (01) ==
LOC: LAB 12:10
PROVIDERS: ATTEND Nurse Practitioner Family
DX: E55.9 Vitamin D deficiency, unspecified (principal); N25.81 Secondary hyperparathyroidism of renal origin; N18.30 Chronic kidney disease, stage 3 unspecified; D63.1 Anemia in chronic kidney disease